=== PATIENT | male | born 1960 | race African-American/Black ===

== ENCOUNTER → 2016-05-08 | Outpatient (CLI) | payer OTHER ==
--- NOTE | 2016-05-16 10:53 | P.ARTDOP ---
Arterial Doppler LOWER EXTREMITY ARTERIAL DOPPLER: DATE OF SERVICE: 05/08/2016 Reason for study: Left leg pain. Doppler waveforms: Multiphasic bilaterally throughout. Pulse volume recording: []. Pressure gradients: Only distally and mainly on the left. Ankle-brachial indices: Greater than 1 bilaterally. Toe pressures: 80 on the right, 51 on the left Impression: Study is normal proximally. Very mild decreased toe pressure on the right and more moderate on the left. Possible distal disease, however, more likely vasospastic phenomenon..
== END | disposition home or self-care (01) ==
LOC: RADUSWWP 11:06
PROVIDERS: ATTEND Family Medicine
DX: M79.605 Pain in left leg (principal)
CPT/HCPCS: 93923

== ENCOUNTER → 2016-05-11 | Outpatient (CLI) | payer OTHER ==
--- NOTE | 2016-05-11 12:22 | US ---
EXAMINATION TYPE: US venous doppler duplex LE LT DATE OF EXAM: 05/11/2016 12:11 PM COMPARISON: NONE CLINICAL HISTORY: left leg pain x months. SIDE PERFORMED: left VESSELS IMAGED: External Iliac Vein (EIV) Common Femoral Vein Deep Femoral Vein Greater Saphenous Vein * Femoral Vein Popliteal Vein Small Saphenous Vein * Proximal Calf Veins (* superficial vessels) Spontaneous flow and normal compressibility noted. IMPRESSION: 1. No evidence of DVT
== END | disposition home or self-care (01) ==
LOC: RADUSWWP 11:38
PROVIDERS: ATTEND Family Medicine
DX: M79.605 Pain in left leg (principal)

== ENCOUNTER → 2017-11-02 | Outpatient (CLI) | payer BC, OTHER ==
--- NOTE | 2017-11-02 16:52 | MR ---
Right wrist MRI HISTORY: Decreased range of motion, pain and swelling Multiplanar multisequence imaging through the right wrist No comparisons There is motion on the exam. There are scattered geodes within the carpal bones including the lunate, scaphoid, capitate and triqu etrum. Some reactive marrow signal changes are suspected within the proximal carpal row greatest at t he triquetrum and lunate. 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 There may be some erosive change at the medial aspect of the tri quetrum. [place] fibrocartilage is thought to be intact. Lunotriquetral ligament thought to be intac t. Flexor and extensor tendons and thought to be intact. 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
== END | disposition home or self-care (01) ==
LOC: RADMRIMAIN 09:28
PROVIDERS: ATTEND Nurse Practitioner Family
DX: M19.031 Primary osteoarthritis, right wrist (principal)

== ENCOUNTER 2017-11-12 10:09 | Emergency (ER) | payer BC, OTHER ==
[2017-11-12 10:14] VITALS: BP 122/77; PULSE 70; RESP 20; TEMP 97.9
--- NOTE | 2017-11-12 10:54 | ED ---
Upper Extremity HPI - General Chief Complaint: Extremity Injury, Upper Stated Complaint: Righ Wrist Pain Time Seen by Provider: 11/12/17 10:16 Source: patient Mode of arrival: ambulatory Limitations: no limitations - History of Present Illness Initial Comments: This is a 57-year-old male with past medical history of previous right wrist injury that occurred Sep 11 2017, pt presents today complaining of wrist pain that has been unchanged since the injury and he cant take the chronic pain. Pt received the injury while at work pushing a heavy object called a bend. He has seen his PCP, Dr Butcher for the injury who has been managing care. MRI was ordered by [facility] revealing arthropathy changes and scapholunate dissociation. Today upon presentation pt complains of right wrist pain isolated to the carpals he states the pain is a 9 out of 10 without radiation in addition he has X been experiencing tingling in the right hand since the injury september, symptoms unchanged today. Patient states that [facility] by his primary care provider, and states that he was unable to get an appointment due to issues with Workmen's Comp. He presents today to see if he revealed seen by orthopedics at Hospital. Pt denies loss of sensation, numbness of extremity, coolness of extremity or new injury, rashes or edema of the carpal joints/skin, or any new symptoms associated with the right wrist. Patient denies any recent fever, chills, shortness of breath, chest pain, back pain, abdominal pain, nausea or vomiting, numbness or tingling , dysuria or hematuria, constipation or diarrhea, headaches or visual changes, or any other complaints. - Related Data Home Medications Medication Instructions Recorded Confirmed Acetaminophen Tab [Tylenol Tab] 1,000 mg PO Q6HR 11/12/17 11/12/17 Atorvastatin Calcium [Lipitor] 10 mg PO DAILY 11/12/17 11/12/17 Ergocalciferol (Vitamin D2) 50,000 unit PO Q7D 11/12/17 11/12/17 [Vitamin D2] FLUoxetine HCL [PROzac] 20 mg PO DAILY 11/12/17 11/12/17 Ferrous Sulfate [Feosol] 325 mg PO BID 11/12/17 11/12/17 Gabapentin [Neurontin] 100 mg PO TID PRN 11/12/17 11/12/17 Gabapentin [Neurontin] 300 mg PO TID 11/12/17 11/12/17 Hydrocortisone Cream 1 applic TOPICAL DAILY PRN 11/12/17 11/12/17 [Hydrocortisone 2.5% Cream] Meloxicam [Mobic] 7.5 mg PO DAILY 11/12/17 11/12/17 hydrOXYzine HCL 25 mg PO HS PRN 11/12/17 11/12/17 metFORMIN HCL [Glucophage] 500 mg PO DAILY 11/12/17 11/12/17 Allergies Allergy/AdvReac Type Severity Reaction Status Date / Time No Known Allergies Allergy Verified 11/12/17 10:18 Review of Systems ROS Statement: Those systems with pertinent positive or pertinent negative responses have been documented in the HPI. ROS Other: All systems not noted in ROS Statement are negative. Constitutional: Denies: fever, chills Eyes: Denies: eye pain ENT: Denies: throat pain Respiratory: Denies: cough, dyspnea Cardiovascular: Denies: chest pain, palpitations Gastrointestinal: Denies: abdominal pain, nausea, vomiting, diarrhea, constipation Genitourinary: Denies: urgency, dysuria, frequency Musculoskeletal: Reports: as per HPI, arthralgia. Denies: joint swelling Neurological: Reports: as per HPI. Denies: headache, weakness, numbness, paresthesias, abnormal gait Past Medical History Past Medical History: Diabetes Mellitus Additional Past Medical History / Comment(s): heart murmur History of Any Multi-Drug Resistant Organisms: None Reported Past Surgical History: No Surgical Hx Reported Past Psychological History: Bipolar, Depression Smoking Status: Current every day smoker Past Alcohol Use History: None Reported Past Drug Use History: None Reported General Exam - General Exam Comments Initial Comments: General: The patient is awake and alert, in no distress, and does not appear acutely ill. Eye: Pupils are equal, round and reactive to light, extra-ocular movements are intact. No nystagmus. There is normal conjunctiva bilaterally. No signs of icterus. Ears, nose, mouth and throat: There are moist mucous membranes and no oral lesions. Neck: The neck is supple, there is no tenderness or JVD. Cardiovascular: There is a regular rate and rhythm. No murmur, rub or gallop is appreciated. Respiratory: Lungs are clear to auscultation, respirations are non-labored, breath sounds are equal. No wheezes, stridor, rales, or rhonchi. Musculoskeletal: Examination of right wrist reveals no edema, erythema, lesions , masses or gross deformities. Pain to palpation of the right wrist both on the ventral and dorsal aspects over the carpal bones. No tenderness to palpation over the metacarpals or phalanges of the hands b/l. Pt is able to range the right wrist pain. Median ulnar and radial nerves are intact as patient is able to make the okay, finger cross and stop sign with the right hand . The station intact of right hand or equal comparison to the left . +2 radial pulses bilaterally . Less than 2 second capillary refill of the right hand Normal ROM , no tenderness left upper extremity. Strength 5/5 of the wrist bilaterally and no evidence of wristdrop. Neurological: A&O x 3. CN II-XII intact, There are no obvious motor or sensory deficits. Coordination appears grossly intact. Speech is normal. Skin: Skin is warm and dry and no rashes or lesions are noted. Psychiatric: Cooperative, appropriate mood & affect, normal judgment. Limitations: no limitations Course Vital Signs 11/12/17 10:12 Temperature 97.9 F Pulse Rate 70 Respiratory 20 Rate Blood Pressure 122/77 O2 Sat by Pulse 99 Oximetry Medical Decision Making - Medical Decision Making This is a 57-year-old male with past medical history of previous right wrist injury that occurred Sep 11 2017, pt presents today complaining of wrist pain that has been unchanged since the injury and he cant take the chronic pain. Pt received the injury while at work pushing a heavy object called a bend. He has seen his PCP, Dr Butcher for the injury who has been managing care. MRI was ordered by [facility] revealing arthropathy changes and scapholunate dissociation. Today upon presentation pt complains of right wrist pain isolated to the carpals he states the pain is a 9 out of 10 without radiation in addition he has X been experiencing tingling in the right hand since the injury september, symptoms unchanged today. Patient states that he was [facility] by his primary care provider, and states that he was unable to get an appointment due to issues with Workmen's Comp. He presents today to see if he revealed seen by orthopedics at Hospital. Pt denies loss of sensation, numbness of extremity, coolness of extremity or new injury, rashes or edema of the carpal joints/skin, or any new symptoms associated with the right wrist. Examination of right wrist reveals no edema, erythema, lesions, masses or gross deformities. Pain to palpation of the right wrist both on the ventral and dorsal aspects over the carpal bones. No tenderness to palpation over the metacarpals or phalanges of the hands b/l. Pt is able to range the right wrist pain. Median ulnar and radial nerves are intact as patient is able to make the okay, finger cross and stop sign with the right hand. The station intact of right hand or equal comparison to the left . +2 radial pulses bilaterally . Less than 2 second capillary refill of the right hand. Case was discussed with Dr. Mata at this time we feel there are no new, or acute changes. THe MRI results were reviewed by myself. We discussed with patient that we will [facility] however, he may need one through [facility] or primary care provider. Pt was told he may return to the emergency department if his experiences change in pain, or new symptoms. Pt was offered toradol for pain relief today, he stated that he is used to it and it and just wants further evaulation by orthopedics. Pt agreed with the plan discussed and will wear wrist brace he has been using since September. Pt was discharged in stable condition. Disposition Clinical Impression: Chronic pain of right wrist Disposition: HOME SELF-CARE Condition: Good Instructions: Wrist Injury (ED) Additional Instructions: Please follow-up with orthopedics in the next 2 days for further evaluation and treatment. Please return to emergency room if the symptoms increase or worsen or for any other concerns. Is patient prescribed a controlled substance at d/c from ED?: No Referrals: Cherie Coyne MD [Primary Care Provider] - 1-2 days Naun Everett DO [Doctor of Osteopathic Medicine] - 1-2 days Time of Disposition: 11:12
== END 2017-11-12 11:17 | disposition home or self-care (01) ==
LOC: EC 10:09
DX: G89.29 Other chronic pain (principal); M25.531 Pain in right wrist; E11.9 Type 2 diabetes mellitus without complications; F31.9 Bipolar disorder, unspecified; F17.200 Nicotine dependence, unspecified, uncomplicated; Z79.1 Long term (current) use of non-steroidal anti-inflammatories (NSAID); Z79.84 Long term (current) use of oral hypoglycemic drugs; Z79.899 Other long term (current) drug therapy
CPT/HCPCS: 99283

== ENCOUNTER 2019-05-13 11:00 | Emergency (ER) | payer BC, OTHER ==
[2019-05-13 11:04] VITALS: BP 123/86; PULSE 83; RESP 19; TEMP 97.9
[2019-05-13] MEDS ORDERED: HYDROcodone/APAP 7.5-325MG 1 EACH TAB PO ONE (11:56)
[2019-05-13] MEDS ORDERED: ACET/COD 300 MG/30 MG STARTER PACK 6 TAB BTL PO STA (11:56)
--- NOTE | 2019-05-13 11:57 | ED ---
Back Pain HPI - General Chief Complaint: Back Pain/Injury Stated Complaint: back pain Time Seen by Provider: 05/13/19 11:16 Source: patient, RN notes reviewed Limitations: no limitations - History of Present Illness Initial Comments: 58-year-old male presents emergency Department chief complaint low back pain. 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 Patient has chronic back issues. Patient denies any bowel bladder incontinence or retention or saddle anesthesias. No abdominal pain. Patient states pain is worse with movement better at rest. He has not taken anything recently for the pain. He does have chronic pain is been chronic pain medications. - Related Data Home Medications Medication Instructions Recorded Confirmed Acetaminophen Tab [Tylenol Tab] 1,000 mg PO Q6HR 11/12/17 11/12/17 Atorvastatin Calcium [Lipitor] 10 mg PO DAILY 11/12/17 11/12/17 Ergocalciferol (Vitamin D2) 50,000 unit PO Q7D 11/12/17 11/12/17 [Vitamin D2] FLUoxetine HCL [PROzac] 20 mg PO DAILY 11/12/17 11/12/17 Ferrous Sulfate [Feosol] 325 mg PO BID 11/12/17 11/12/17 Gabapentin [Neurontin] 100 mg PO TID PRN 11/12/17 11/12/17 Gabapentin [Neurontin] 300 mg PO TID 11/12/17 11/12/17 Hydrocortisone Cream 1 applic TOPICAL DAILY PRN 11/12/17 11/12/17 [Hydrocortisone 2.5% Cream] Meloxicam [Mobic] 7.5 mg PO DAILY 11/12/17 11/12/17 hydrOXYzine HCL 25 mg PO HS PRN 11/12/17 11/12/17 metFORMIN HCL [Glucophage] 500 mg PO DAILY 11/12/17 11/12/17 Previous Rx's Medication Instructions Recorded Cyclobenzaprine [Flexeril] 5 mg PO TID PRN #15 tablet 05/13/19 Ibuprofen [Motrin] 600 mg PO Q8HR PRN #30 tab 05/13/19 Allergies Allergy/AdvReac Type Severity Reaction Status Date / Time No Known Allergies Allergy Verified 11/12/17 10:18 Review of Systems ROS Statement: Those systems with pertinent positive or pertinent negative responses have been documented in the HPI. ROS Other: All systems not noted in ROS Statement are negative. Past Medical History Past Medical History: Diabetes Mellitus Additional Past Medical History / Comment(s): heart murmur History of Any Multi-Drug Resistant Organisms: None Reported Past Surgical History: No Surgical Hx Reported Past Psychological History: Bipolar, Depression Smoking Status: Current every day smoker Past Alcohol Use History: None Reported Past Drug Use History: None Reported General Exam Limitations: no limitations General appearance: alert, in no apparent distress Head exam: Present: atraumatic, normocephalic, normal inspection Eye exam: Present: normal appearance, PERRL, EOMI. Absent: scleral icterus, conjunctival injection, periorbital swelling Neck exam: Present: normal inspection, full ROM. Absent: tenderness, meningismus, lymphadenopathy Respiratory exam: Present: normal lung sounds bilaterally. Absent: respiratory distress, wheezes, rales, rhonchi, stridor Cardiovascular Exam: Present: regular rate, normal rhythm, normal heart sounds. Absent: systolic murmur, diastolic murmur, rubs, gallop, clicks GI/Abdominal exam: Present: soft, normal bowel sounds. Absent: distended, tenderness, guarding, rebound, rigid Extremities exam: Present: other (Lower extremity is neurovascularly intact full strength equal color equal warmth) Back exam: Present: full ROM, tenderness, muscle spasm, paraspinal tenderness. Absent: CVA tenderness (R), vertebral tenderness Neurological exam: Present: reflexes normal. Absent: motor sensory deficit Course Vital Signs 05/13/19 11:02 Temperature 97.9 F Pulse Rate 83 Respiratory 19 Rate Blood Pressure 123/86 O2 Sat by Pulse 99 Oximetry Medical Decision Making - Medical Decision Making Patient has acute on chronic back pain. He has no red flag symptoms. Patient is neurovascularly intact will be discharged return parameters were discussed. Disposition Clinical Impression: Strain of lumbar region Disposition: HOME SELF-CARE Condition: Stable Instructions (If sedation given, give patient instructions): Acute Low Back Pain (ED) Additional Instructions: Please return to the Emergency Department if symptoms worsen or any other concerns. Prescriptions: Cyclobenzaprine [Flexeril] 5 mg PO TID PRN #15 tablet PRN Reason: Muscle Spasm Ibuprofen [Motrin] 600 mg PO Q8HR PRN #30 tab PRN Reason: Pain Is patient prescribed a controlled substance at d/c from ED?: No Referrals: Alberto Leon MD [Primary Care Provider] - 1-2 days Time of Disposition: 11:57
== END 2019-05-13 12:05 | disposition home or self-care (01) ==
LOC: EC 11:00
DX: S39.012A Strain of muscle, fascia and tendon of lower back, initial encounter (principal); G89.29 Other chronic pain; E11.9 Type 2 diabetes mellitus without complications; F31.9 Bipolar disorder, unspecified; F17.200 Nicotine dependence, unspecified, uncomplicated; Z79.1 Long term (current) use of non-steroidal anti-inflammatories (NSAID); Z79.84 Long term (current) use of oral hypoglycemic drugs; Z79.891 Long term (current) use of opiate analgesic; Z79.899 Other long term (current) drug therapy; X50.9XXA Other and unspecified overexertion or strenuous movements or postures, initial encounter; Y93.89 Activity, other specified
CPT/HCPCS: 99283

== ENCOUNTER 2019-06-05 07:08 | Emergency (ER) | payer BC, OTHER ==
[2019-06-05 07:15] VITALS: TEMP 99.7
[2019-06-05] MEDS ORDERED: IBUPROFEN 600 MG TAB PO STA (07:26)
[2019-06-05] MEDS ORDERED: ACETAMINOPHEN TAB 325 MG TAB PO STA (07:26)
--- NOTE | 2019-06-05 07:42 | ED ---
URI HPI - General Chief Complaint: Upper Respiratory Infection Stated Complaint: bodyaches/congestion Time Seen by Provider: 06/05/19 07:17 Source: patient, RN notes reviewed Mode of arrival: ambulatory Limitations: no limitations - History of Present Illness Initial Comments: 58-year-old male presents emergency Department chief complaint of fever cough congestion body aches. Patient states started 2 days ago. Patient states it is very achy head to toe. Patient states he has not coughed he has a large amount nasal congestion denies sore throat, neck pain, headache or neck pain. Patient states she's had multiple sick contacts. He has NO KNOWN DRUG ALLERGIES. Denies any GI symptoms including nausea vomiting diarrhea constipation. He has not taken any recent Tylenol or Motrin. - Related Data Home Medications Medication Instructions Recorded Confirmed Acetaminophen Tab [Tylenol Tab] 1,000 mg PO Q6HR 11/12/17 11/12/17 Atorvastatin Calcium [Lipitor] 10 mg PO DAILY 11/12/17 11/12/17 Ergocalciferol (Vitamin D2) 50,000 unit PO Q7D 11/12/17 11/12/17 [Vitamin D2] FLUoxetine HCL [PROzac] 20 mg PO DAILY 11/12/17 11/12/17 Ferrous Sulfate [Feosol] 325 mg PO BID 11/12/17 11/12/17 Gabapentin [Neurontin] 100 mg PO TID PRN 11/12/17 11/12/17 Gabapentin [Neurontin] 300 mg PO TID 11/12/17 11/12/17 Hydrocortisone Cream 1 applic TOPICAL DAILY PRN 11/12/17 11/12/17 [Hydrocortisone 2.5% Cream] Meloxicam [Mobic] 7.5 mg PO DAILY 11/12/17 11/12/17 hydrOXYzine HCL 25 mg PO HS PRN 11/12/17 11/12/17 metFORMIN HCL [Glucophage] 500 mg PO DAILY 11/12/17 11/12/17 Previous Rx's Medication Instructions Recorded Cyclobenzaprine [Flexeril] 5 mg PO TID PRN #15 tablet 05/13/19 Ibuprofen [Motrin] 600 mg PO Q8HR PRN #30 tab 05/13/19 Azithromycin [Zithromax Z-pack] 0 mg PO DIRECTED #1 pack 06/05/19 Allergies Allergy/AdvReac Type Severity Reaction Status Date / Time No Known Allergies Allergy Verified 11/12/17 10:18 Review of Systems ROS Statement: Those systems with pertinent positive or pertinent negative responses have been documented in the HPI. ROS Other: All systems not noted in ROS Statement are negative. Past Medical History Past Medical History: Diabetes Mellitus Additional Past Medical History / Comment(s): heart murmur History of Any Multi-Drug Resistant Organisms: None Reported Past Surgical History: No Surgical Hx Reported Past Psychological History: Anxiety, Bipolar, Depression Smoking Status: Current every day smoker Past Alcohol Use History: None Reported Past Drug Use History: None Reported General Exam Limitations: no limitations General appearance: alert, in no apparent distress Head exam: Present: atraumatic, normocephalic, normal inspection Eye exam: Present: normal appearance, PERRL, EOMI. Absent: scleral icterus, conjunctival injection, periorbital swelling ENT exam: Present: normal exam, normal oropharynx, mucous membranes moist, TM's normal bilaterally Neck exam: Present: normal inspection, full ROM. Absent: tenderness, meningismus, lymphadenopathy Respiratory exam: Present: normal lung sounds bilaterally. Absent: respiratory distress, wheezes, rales, rhonchi, stridor Cardiovascular Exam: Present: normal rhythm, tachycardia, normal heart sounds. Absent: systolic murmur, diastolic murmur, rubs, gallop, clicks Course Vital Signs 06/05/19 06/05/19 07:12 07:51 Temperature 99.7 F H Pulse Rate 118 H Respiratory 20 16 Rate Blood Pressure 90/60 O2 Sat by Pulse 98 Oximetry Medical Decision Making - Medical Decision Making 58-year-old male present emergency department for cough congestion fever bodyaches. Patient's symptoms are consistent with influenza though less than test is negative. On x-ray question possible early developing pneumonia. Patient will be given shot of Rocephin, discharged on azithromycin. Patient otherwise stable. Patient blood pressure is a lower side though patient reports is normal for him. Patient states that he donates plasma on a regular basis and states that this is usual for him. I did recommend lab work, IV fluids to improve his blood pressure. Patient refuses. I did recommend Rocephin IM patient is hesitant though agrees at this time. - Lab Data Lab Results 06/05/19 Range/Units 07:45 Influenza Type A RNA Not Detected (Not Detectd) Influenza Type B (PCR) Not Detected (Not Detectd) Disposition Clinical Impression: Pneumonia Disposition: HOME SELF-CARE Condition: Stable Instructions (If sedation given, give patient instructions): Pneumonia (ED) Additional Instructions: Please follow up with primary care physician to have a recheck. Please return to the Emergency Department if symptoms worsen or any other concerns. Prescriptions: Azithromycin [Zithromax Z-pack] 0 mg PO DIRECTED #1 pack Is patient prescribed a controlled substance at d/c from ED?: No Referrals: Alberto Leon MD [Primary Care Provider] - 1-2 days Time of Disposition: 08:25
--- NOTE | 2019-06-05 07:49 | XR ---
EXAMINATION TYPE: XR chest 2V DATE OF EXAM: 06/05/2019 COMPARISON: NONE HISTORY: Cough and weakness TECHNIQUE: Frontal and lateral views of the chest are obtained. FINDINGS: Asymmetric opacity is seen at the right lung base. Pulmonary hyperinflation of underlying COPD. Biapical pleural parenchymal scarring. Elongation of the cardiomediastinal silhouette that is n ot enlarged. Osseous structures are grossly intact. IMPRESSION: Right basilar airspace disease that may represent early developing pneumonia. Follow-up to resolution is recommended in this patient with underlying COPD.
[2019-06-05 07:53] VITALS: RESP 16
[2019-06-05] MEDS ORDERED: cefTRIAXone 1,000 MG VIAL (IM USE) IM STA (08:24)
[2019-06-05 08:42] VITALS: BP 101/63; PULSE 98
== END 2019-06-05 08:30 | disposition home or self-care (01) ==
LOC: EC 07:08
DX: J18.9 Pneumonia, unspecified organism (principal); R00.0 Tachycardia, unspecified; E11.9 Type 2 diabetes mellitus without complications; F31.9 Bipolar disorder, unspecified; F41.9 Anxiety disorder, unspecified; F17.200 Nicotine dependence, unspecified, uncomplicated; Z79.1 Long term (current) use of non-steroidal anti-inflammatories (NSAID); Z79.84 Long term (current) use of oral hypoglycemic drugs; Z79.891 Long term (current) use of opiate analgesic; Z79.899 Other long term (current) drug therapy
CPT/HCPCS: 71046; 87502; 96372; 99283

== ENCOUNTER 2019-12-17 10:10 | Emergency (ER) | payer BC, OTHER ==
[2019-12-17 10:19] VITALS: RESP 18
--- NOTE | 2019-12-17 10:41 | ED ---
Extremity Problem HPI - General Chief complaint: Extremity Problem,Nontraumatic Stated complaint: Bilateral Feet Pain Time Seen by Provider: 12/17/19 10:27 Source: patient Mode of arrival: ambulatory Limitations: no limitations - History of Present Illness Initial comments: Patient is a 59-year-old male with history of diabetes presenting to emergency [facility] with a chief complaint of feet pain. Patient reports pain has been ongoing for many years. States she sees a systems security consultant who typically removes his calluses but now he has developed new calluses on the plantar aspect of bilateral feet and is not able to walk due to the pain. Patient states he has an appointment with a systems security consultant on Saturday but cannot wait that long. He also reports itchiness in both of his feet along with intermittent burning-like sensation. States there was no trauma to both feet. No erythema or swelling. - Related Data Home Medications Medication Instructions Recorded Confirmed Acetaminophen Tab [Tylenol] 1,000 mg PO Q6HR 11/12/17 06/06/19 Atorvastatin Calcium [Lipitor] 10 mg PO DAILY 11/12/17 06/06/19 Ergocalciferol (Vitamin D2) 50,000 unit PO Q7D 11/12/17 06/06/19 [Vitamin D2] Ferrous Sulfate [Iron (65 MG 325 mg PO BID 11/12/17 06/06/19 Elemental)] Ammonium Lactate Lotion 1 applic TOPICAL BID 06/06/19 06/06/19 [Lac-Hydrin 12% Lotion] FLUoxetine HCL 40 mg PO DAILY 06/06/19 06/06/19 Mirtazapine [Remeron] 15 mg PO HS 06/06/19 06/06/19 Previous Rx's Medication Instructions Recorded Cyclobenzaprine [Flexeril] 5 mg PO TID PRN #15 tablet 05/13/19 Ensure Complete 1 can PO TID BETWEEN MEALS #18 can 06/09/19 Gabapentin [Neurontin] 300 mg PO TID cap 06/09/19 Ipratropium-Albuterol Nebulize 3 ml INHALATION RT-QID #120 ml 06/09/19 [Duoneb 0.5 mg-3 mg/3 ml Soln] Levofloxacin [Levaquin] 500 mg PO Q24H #5 tab 06/09/19 Nicotine 14Mg/24Hr Patch [Habitrol] 1 patch TRANSDERM DAILY #30 patch 06/09/19 Pantoprazole [Protonix] 40 mg PO DAILY #30 tablet. 06/09/19 predniSONE 0 mg PO DIRECTED #30 tab 06/09/19 Allergies Allergy/AdvReac Type Severity Reaction Status Date / Time No Known Allergies Allergy Verified 12/17/19 10:19 Review of Systems ROS Statement: Those systems with pertinent positive or pertinent negative responses have been documented in the HPI. ROS Other: All systems not noted in ROS Statement are negative. Past Medical History Past Medical History: COPD, Diabetes Mellitus, Hyperlipidemia, Mitral Valve Prolapse (MVP), Osteoarthritis (OA) Additional Past Medical History / Comment(s): heart murmur History of Any Multi-Drug Resistant Organisms: None Reported Past Surgical History: Orthopedic Surgery Additional Past Surgical History / Comment(s): l leg Past Psychological History: Anxiety, Bipolar, Depression Smoking Status: Current every day smoker Past Alcohol Use History: Daily Past Drug Use History: None Reported - Past Family History Father Family Medical History: No Reported History (Father at age 91 from old age.) Mother Family Medical History: Unable to Obtain (Mother he could not recall what reason.) Brother(s) Family Medical History: No Reported History (Patient had 5 brothers one of them from motorcycle accident and one was killed in [place].) Sister(s) Family Medical History: No Reported History (Patient has one sister no major medical problems.) General Exam Limitations: no limitations General appearance: alert, in no apparent distress Head exam: Present: atraumatic, normocephalic, normal inspection Eye exam: Present: normal appearance, PERRL, EOMI Pupils: Present: normal accommodation ENT exam: Present: normal exam, normal oropharynx, mucous membranes moist Neck exam: Present: normal inspection Respiratory exam: Present: normal lung sounds bilaterally. Absent: respiratory distress, wheezes Cardiovascular Exam: Present: regular rate, normal rhythm, normal heart sounds Extremities exam: Present: full ROM, tenderness (Tenderness when pressed on the calluses.), normal capillary refill, other (+2 ulnar and radial pulses bilaterally. +2 dorsalis pedis and posterior tibialis bilaterally.). Absent: normal inspection (Calluses formed near the MTP joint of bilateral feet. No signs of acute trauma infection, diabetic ulcers.) Back exam: Present: normal inspection, full ROM Neurological exam: Present: alert, oriented X3 Psychiatric exam: Present: normal affect, normal mood Skin exam: Present: warm, dry, intact, normal color Course Vital Signs 12/17/19 12/17/19 10:12 11:27 Temperature 98 F 97.8 F Pulse Rate 79 82 Respiratory 18 18 Rate Blood Pressure 178/72 164/69 O2 Sat by Pulse 100 100 Oximetry Medical Decision Making - Medical Decision Making Patient is a 59-year-old male presenting to emergency Department with chief complaint of bilateral feet pain on exam patient has calluses on both feet which I was able to remove with a surgical neck. Patient tolerated procedure well. He was able to apply weight on both feet with improvement in his pain. Patient is also diabetic which I suspect is giving him the burning-like sensation that is intermittent. All of his symptoms have been ongoing over the past several years. He is to follow-up with a systems security consultant on Saturday. Patient advised to wear socks and soak his feet in Epsom salts. Strict return parameters were thoroughly discussed the patient was understanding and agreeable. Case discussed with physician. Disposition Clinical Impression: Callus of foot, Bilateral foot pain Disposition: HOME SELF-CARE Condition: Stable Instructions (If sedation given, give patient instructions): Diabetic Peripheral Neuropathy (ED) Additional Instructions: Follow-up with her systems security consultant. Return to emergency department if symptoms worsen. Is patient prescribed a controlled substance at d/c from ED?: No Referrals: None,Stated [Primary Care Provider] - 1-2 days Time of Disposition: 11:18
[2019-12-17 11:28] VITALS: BP 164/69; PULSE 82; TEMP 97.8
== END 2019-12-17 11:27 | disposition home or self-care (01) ==
LOC: EC 10:10
DX: M25.775 Osteophyte, left foot (principal); M25.774 Osteophyte, right foot; F17.200 Nicotine dependence, unspecified, uncomplicated; F41.9 Anxiety disorder, unspecified; F31.9 Bipolar disorder, unspecified; E78.5 Hyperlipidemia, unspecified; Z79.899 Other long term (current) drug therapy
CPT/HCPCS: 99283

== ENCOUNTER → 2020-01-15 | Outpatient (CLI) | payer BC, OTHER | END | disposition home or self-care (01) | LOC: LABWHC1 12:07 | PROVIDERS: ATTEND Family Medicine | DX: Z03.818 Encounter for observation for suspected exposure to other biological agents ruled out (principal) | CPT/HCPCS: U0003; C9803 ==

== ENCOUNTER 2020-03-04 17:33 | Emergency (ER) | payer BC, OTHER ==
--- NOTE | 2020-03-04 19:28 | ED ---
Psych HPI - General Chief Complaint: Psychiatric Symptoms Stated Complaint: evaluation Time Seen by Provider: 03/04/20 17:45 Source: police Mode of arrival: ambulatory - History of Present Illness Initial Comments: Patient 51-year-old male presenting to the emergency department for psychiatric evaluation. Patient states he believes someone was in his apartment. He has called the police department multiple times. This time, the Police Department brought the patient to the ED to be evaluated. Patient states that "the egg worker think I'm crazy". Patient is denying any homicidal, suicidal thoughts or ideations. He does not have any other complaints. - Related Data Home Medications Medication Instructions Recorded Confirmed Acetaminophen Tab [Tylenol] 1,000 mg PO Q6HR 11/12/17 06/06/19 Atorvastatin Calcium [Lipitor] 10 mg PO DAILY 11/12/17 06/06/19 Ergocalciferol (Vitamin D2) 50,000 unit PO Q7D 11/12/17 06/06/19 [Vitamin D2] Ferrous Sulfate [Iron (65 MG 325 mg PO BID 11/12/17 06/06/19 Elemental)] Ammonium Lactate Lotion 1 applic TOPICAL BID 06/06/19 06/06/19 [Lac-Hydrin 12% Lotion] FLUoxetine HCL 40 mg PO DAILY 06/06/19 06/06/19 Mirtazapine [Remeron] 15 mg PO HS 06/06/19 06/06/19 Previous Rx's Medication Instructions Recorded Cyclobenzaprine [Flexeril] 5 mg PO TID PRN #15 tablet 05/13/19 Ensure Complete 1 can PO TID BETWEEN MEALS #18 can 06/09/19 Gabapentin [Neurontin] 300 mg PO TID cap 06/09/19 Ipratropium-Albuterol Nebulize 3 ml INHALATION RT-QID #120 ml 06/09/19 [Duoneb 0.5 mg-3 mg/3 ml Soln] Levofloxacin [Levaquin] 500 mg PO Q24H #5 tab 06/09/19 Nicotine 14Mg/24Hr Patch [Habitrol] 1 patch TRANSDERM DAILY #30 patch 06/09/19 Pantoprazole [Protonix] 40 mg PO DAILY #30 tablet. 06/09/19 predniSONE 0 mg PO DIRECTED #30 tab 06/09/19 Allergies Allergy/AdvReac Type Severity Reaction Status Date / Time No Known Allergies Allergy Verified 03/04/20 17:37 Review of Systems ROS Statement: Those systems with pertinent positive or pertinent negative responses have been documented in the HPI. ROS Other: All systems not noted in ROS Statement are negative. Past Medical History Past Medical History: COPD, Diabetes Mellitus, Hyperlipidemia, Mitral Valve Prolapse (MVP), Osteoarthritis (OA) Additional Past Medical History / Comment(s): heart murmur History of Any Multi-Drug Resistant Organisms: None Reported Past Surgical History: Orthopedic Surgery Additional Past Surgical History / Comment(s): l leg Past Psychological History: Anxiety, Bipolar, Depression Smoking Status: Current every day smoker Past Alcohol Use History: Daily Past Drug Use History: None Reported - Past Family History Father Family Medical History: No Reported History (Father at age 91 from old age.) Mother Family Medical History: Unable to Obtain (Mother he could not recall what reason.) Brother(s) Family Medical History: No Reported History (Patient had 5 brothers one of them from motorcycle accident and one was killed in [place].) Sister(s) Family Medical History: No Reported History (Patient has one sister no major medical problems.) General Exam Limitations: no limitations General appearance: alert, in no apparent distress Head exam: Present: atraumatic, normocephalic, normal inspection Eye exam: Present: normal appearance, PERRL, EOMI Pupils: Present: normal accommodation ENT exam: Present: normal exam, normal oropharynx, mucous membranes moist, TM's normal bilaterally, normal external ear exam Neck exam: Present: normal inspection, full ROM. Absent: tenderness, meningismus Respiratory exam: Present: normal lung sounds bilaterally. Absent: respiratory distress, wheezes, rales Cardiovascular Exam: Present: regular rate, normal rhythm, normal heart sounds. Absent: bradycardia, tachycardia, irregular rhythm GI/Abdominal exam: Present: soft. Absent: distended, tenderness, guarding Extremities exam: Present: normal inspection, full ROM, normal capillary refill. Absent: tenderness Back exam: Present: normal inspection, full ROM. Absent: tenderness, CVA tenderness (R), CVA tenderness (L) Neurological exam: Present: alert, oriented X3 Psychiatric exam: Present: normal affect, normal mood. Absent: anxious, flat affect, suicidal ideation Skin exam: Present: warm, dry, intact, normal color Course Vital Signs 10/30/20 10/30/20 17:35 19:41 Temperature 97.7 F 98.2 F Pulse Rate 90 86 Respiratory 20 18 Rate Blood Pressure 146/105 160/78 O2 Sat by Pulse 99 98 Oximetry Medical Decision Making - Medical Decision Making patient 59-year-old male presenting to the emergency department for psychiatric evaluation. Physical examination is unremarkable. Patient is denying any homicidal, suicidal thoughts or ideations. Patient was brought to the ED by police. Patient states that he essentially wants to prove to with THAT he is "not crazy". EPS evaluated the patient and he will be discharged with a safety plan. He was advised to follow-up with [facility]. Strict return parameters discussed with patient is a 71 agreeable. Case discussed physician. Disposition Clinical Impression: Adjustment reaction of adolescence Disposition: HOME SELF-CARE Condition: Stable Instructions (If sedation given, give patient instructions): Depression (ED) Additional Instructions: Follow-up with [facility]. Return to department if symptoms worsen. Is patient prescribed a controlled substance at d/c from ED?: No Referrals: Elia Casey MD [Primary Care Provider] - 1-2 days Time of Disposition: 19:28
[2020-03-04 19:44] VITALS: BP 160/78; PULSE 86; RESP 18; TEMP 98.2
== END 2020-03-04 19:41 | disposition home or self-care (01) ==
LOC: EC 17:33
DX: F43.22 Adjustment disorder with anxiety (principal); F31.9 Bipolar disorder, unspecified; F17.200 Nicotine dependence, unspecified, uncomplicated; E78.5 Hyperlipidemia, unspecified; Z79.899 Other long term (current) drug therapy
CPT/HCPCS: 99284

== ENCOUNTER → 2020-06-10 | Outpatient (CLI) | payer BC, OTHER ==
--- NOTE | 2020-06-10 10:58 | US ---
EXAMINATION TYPE: US abdomen limited DATE OF EXAM: 06/10/2020 COMPARISON: NONE CLINICAL HISTORY: K40.90 Unilateral inguinal hernia, without obstruc. Patient has a bulge in his LLQ , just superior to the inguinal canal At the area of the patient's palpable lump, LLQ, there appears to be a possible hernia with peristals ing bowel. IMPRESSION: Possible hernia as noted above.
== END | disposition home or self-care (01) ==
LOC: RADUSWWP 10:18
PROVIDERS: ATTEND Family Medicine
DX: K40.90 Unilateral inguinal hernia, without obstruction or gangrene, not specified as recurrent (principal)
CPT/HCPCS: 76705

== ENCOUNTER 2020-06-20 10:10 | Emergency (ER) | payer BC, OTHER ==
[2020-06-20 10:17] VITALS: BP 137/62; PULSE 68; RESP 18; TEMP 97.1
[2020-06-20] MEDS ORDERED: ACET/COD 300 MG/30 MG STARTER PACK 6 TAB BTL PO STA (10:32)
--- NOTE | 2020-06-20 10:32 | ED ---
Abdominal Pain HPI - General Chief Complaint: Abdominal Pain Stated Complaint: hernia Time Seen by Provider: 06/20/20 10:19 Source: patient, RN notes reviewed Mode of arrival: ambulatory Limitations: no limitations - History of Present Illness Initial Comments: This a 59-year-old male presents emergency Department chief complaint of left- sided groin swelling. Patient states that he's had a hernia which she's been diagnosed with states that is intermittent pain. He states the pain usually comes when his general activity has no current symptoms. Patient denies any dysuria, hematuria no difficulty with bowel movements no fevers or chills no other complaints. Patient states he has no appointment this week with surgeon. - Related Data Home Medications Medication Instructions Recorded Confirmed Acetaminophen Tab [Tylenol] 1,000 mg PO Q6HR 11/12/17 06/06/19 Atorvastatin Calcium [Lipitor] 10 mg PO DAILY 11/12/17 06/06/19 Ergocalciferol (Vitamin D2) 50,000 unit PO Q7D 11/12/17 06/06/19 [Vitamin D2] Ferrous Sulfate [Iron (65 MG 325 mg PO BID 11/12/17 06/06/19 Elemental)] Ammonium Lactate Lotion 1 applic TOPICAL BID 06/06/19 06/06/19 [Lac-Hydrin 12% Lotion] FLUoxetine HCL 40 mg PO DAILY 06/06/19 06/06/19 Mirtazapine [Remeron] 15 mg PO HS 06/06/19 06/06/19 Previous Rx's Medication Instructions Recorded Cyclobenzaprine [Flexeril] 5 mg PO TID PRN #15 tablet 05/13/19 Ensure Complete 1 can PO TID BETWEEN MEALS #18 can 06/09/19 Gabapentin [Neurontin] 300 mg PO TID cap 06/09/19 Ipratropium-Albuterol Nebulize 3 ml INHALATION RT-QID #120 ml 06/09/19 [Duoneb 0.5 mg-3 mg/3 ml Soln] Levofloxacin [Levaquin] 500 mg PO Q24H #5 tab 06/09/19 Nicotine 14Mg/24Hr Patch [Habitrol] 1 patch TRANSDERM DAILY #30 patch 06/09/19 Pantoprazole [Protonix] 40 mg PO DAILY #30 tablet. 06/09/19 predniSONE 0 mg PO DIRECTED #30 tab 06/09/19 Allergies Allergy/AdvReac Type Severity Reaction Status Date / Time No Known Allergies Allergy Verified 06/20/20 10:17 Review of Systems ROS Statement: Those systems with pertinent positive or pertinent negative responses have been documented in the HPI. ROS Other: All systems not noted in ROS Statement are negative. Past Medical History Past Medical History: COPD, Diabetes Mellitus, Hyperlipidemia, Mitral Valve Prolapse (MVP), Osteoarthritis (OA) Additional Past Medical History / Comment(s): heart murmur History of Any Multi-Drug Resistant Organisms: None Reported Past Surgical History: Orthopedic Surgery Additional Past Surgical History / Comment(s): l leg Past Psychological History: Anxiety, Bipolar, Depression Smoking Status: Current every day smoker Past Alcohol Use History: Daily Past Drug Use History: None Reported - Past Family History Father Family Medical History: No Reported History (Father at age 91 from old age.) Mother Family Medical History: Unable to Obtain (Mother he could not recall what reason.) Brother(s) Family Medical History: No Reported History (Patient had 5 brothers one of them from motorcycle accident and one was killed in [place].) Sister(s) Family Medical History: No Reported History (Patient has one sister no major medical problems.) General Exam Limitations: no limitations General appearance: alert, in no apparent distress Head exam: Present: atraumatic, normocephalic, normal inspection Neck exam: Present: normal inspection. Absent: tenderness, meningismus, lymphadenopathy Respiratory exam: Present: normal lung sounds bilaterally. Absent: respiratory distress, wheezes, rales, rhonchi, stridor Cardiovascular Exam: Present: regular rate, normal rhythm, normal heart sounds. Absent: systolic murmur, diastolic murmur, rubs, gallop, clicks GI/Abdominal exam: Present: soft, normal bowel sounds, hernia (Small reducible hernia on the left with no tenderness.). Absent: distended, tenderness, guarding, rebound, rigid Neurological exam: Present: alert, oriented X3 Course Vital Signs 06/20/20 10:13 Temperature 97.1 F L Pulse Rate 68 Respiratory 18 Rate Blood Pressure 137/62 O2 Sat by Pulse 100 Oximetry Medical Decision Making - Medical Decision Making Patient has a small reducible inguinal hernia with no tenderness. Patient will be discharged stable condition as he does not have incarcerated or strangulated hernia. He is advised follow-up with surgeon this week and return for any worsening change in symptoms. Patient agrees to plan. Disposition Clinical Impression: Inguinal hernia Disposition: HOME SELF-CARE Condition: Stable Instructions (If sedation given, give patient instructions): Inguinal Hernia (ED) Additional Instructions: Please return to the Emergency Department if symptoms worsen or any other concerns. Is patient prescribed a controlled substance at d/c from ED?: No Referrals: Cherie Coyne MD [Primary Care Provider] - 1-2 days Ramone Cano MD [STAFF PHYSICIAN] - 1-2 days Time of Disposition: 10:32
== END 2020-06-20 10:44 | disposition home or self-care (01) ==
LOC: EC 10:10
DX: K40.90 Unilateral inguinal hernia, without obstruction or gangrene, not specified as recurrent (principal); E78.5 Hyperlipidemia, unspecified; M19.90 Unspecified osteoarthritis, unspecified site; F41.9 Anxiety disorder, unspecified; F31.9 Bipolar disorder, unspecified; F17.200 Nicotine dependence, unspecified, uncomplicated; Z79.899 Other long term (current) drug therapy
CPT/HCPCS: 99284

== ENCOUNTER 2020-07-29 09:51 | Day surgery (SDC) | payer BC, OTHER ==
[2020-07-28 12:47] VITALS: BMI 16.5
[~2020-07-29 09:51] MED LIST: ACETAMINOPHEN TAB 500 MG TAB PO PRN; DEXAMETHASONE SOD PHOSPHATE 4 MG/ML 1 ML VIAL IV ONE; HEPARIN SODIUM,PORCINE 5,000 UNIT/ML 1 ML VIAL SQ PRN; LACTATED RINGERS 1,000 ML IV SCH; MIDAZOLAM 2 MG/2 ML VIAL IV PRN; ONDANSETRON 4 MG/2 ML VIAL IVP ONE; SCOPOLAMINE 1.5MG/72HR PATCH TRANSDERM ONE
[2020-07-29 12:43] LABS: Glucose,Whole Blood 76 mg/dL (75-99)
[2020-07-29] MEDS ORDERED: PROPOFOL 10 MG/ML 20 ML VIAL IV ONE (13:31)
[2020-07-29] MEDS ORDERED: fentaNYL (PF) 50 MCG/ML 2 ML AMP ONE (13:31)
[2020-07-29] MEDS ORDERED: LIDOCAINE 1% INJ 10MG/ML (20 ML MDV) ONE (13:31)
[2020-07-29] MEDS ORDERED: PHENYLEPHRINE-0.9% NACL SYG 1,000 MCG/10 ML SYRINGE ONE (13:31)
[2020-07-29] MEDS ORDERED: SUCCINYLCHOLINE CHLORIDE 100 MG/5 ML SYR IV ONE (13:31)
[2020-07-29] MEDS ORDERED: MIDAZOLAM 2 MG/2 ML VIAL ONE (13:31)
[2020-07-29] MEDS ORDERED: BUPIVACAINE (PF) 0.25% 30 ML VIAL SQ ONE ×2 (14:05→14:11)
--- NOTE | 2020-07-29 14:29 | P.OP ---
Date of Procedure: 07/29/20 Procedure(s) Performed: PREOPERATIVE DIAGNOSIS: Left femoral hernia POSTOPERATIVE DIAGNOSIS: Same PROCEDURE: Left femoral hernia repair with mesh SURGEON: Ej EBL: Minimal ANESTHESIA: General COMPLICATIONS: None OPERATIVE PROCEDURE: Patient was placed in the operating table in the supine position and placed under general anesthesia. An oblique incision was made in the left groin. Dissection down through the subcutaneous tissues took place using electrocautery. The inguinal ligament was visualized. The patient had a palpable mass inferior to the inguinal ligament medially. This was carefully dissected using blunt dissection and cautery. This revealed a small moderate sized femoral hernia. There was a hernia sac present here which was ligated using a 2-0 Nurolon stick tie suture. The hernia was fully dissected and reduced back into the preperitoneal space. Following that a 1 x 4" Prolene mesh was rolled into a plug shape. This measured 2 x 0.8 cm. This was placed into the femoral canal and sutured using interrupted 2-0 Nurolon sutures to the folding edge of the inguinal ligament, lacunar ligament, and the fascia of the pectineus muscle. This effectively closed the femoral space completely without putting pressure on the femoral vein. The area was irrigated with saline. No bleeding was seen. The subcutaneous tissues were reapproximated using a 3-0 Vicryl sutures. The skin was closed using 4-0 Monocryl sutures. Skin glue and sterile dressings were then applied. DISPOSITION: Stable to recovery room
[2020-07-29 14:39] VITALS: TEMP 97
[2020-07-29] MEDS: HYDROmorphone 0.5 MG/0.5 ML SYRINGE IVP PRN ×3 (14:45→15:13)
[2020-07-29] MEDS ORDERED: KETOROLAC 15 MG/ML 1 ML VIAL IVP ONE (14:49)
[2020-07-29] MEDS ORDERED: LACTATED RINGERS 1,000 ML IV ONE ×2 (14:59)
[2020-07-29 15:35] VITALS: BP 133/82; PULSE 50; RESP 18
[2020-07-29] MEDS ORDERED: IBUPROFEN 600 MG TAB PO SCH (16:00)
[2020-07-29] MEDS ORDERED: ACETAMINOPHEN TAB 325 MG TAB PO SCH (19:00)
== END 2020-07-29 16:28 | disposition home or self-care (01) ==
LOC: OR 09:51
PROVIDERS: ATTEND Surgery
DX: K41.90 Unilateral femoral hernia, without obstruction or gangrene, not specified as recurrent (principal); J44.9 Chronic obstructive pulmonary disease, unspecified; E11.9 Type 2 diabetes mellitus without complications; E78.5 Hyperlipidemia, unspecified; Z98.890 Other specified postprocedural states; I34.1 Nonrheumatic mitral (valve) prolapse; F17.200 Nicotine dependence, unspecified, uncomplicated; F41.9 Anxiety disorder, unspecified; F31.9 Bipolar disorder, unspecified; Z79.899 Other long term (current) drug therapy
CPT/HCPCS: 49550; C1781; J2250; J1644; J1100; J0690; J2405; J2001; J3010; J1885; J2370; J0330; J2704; J1170; 88302

== ENCOUNTER → 2020-08-29 | Outpatient (CLI) | payer BC, OTHER | END | disposition home or self-care (01) | LOC: LABWHC1 16:06 | PROVIDERS: ATTEND Family Medicine | DX: Z20.822 Contact with and (suspected) exposure to COVID-19 (principal) | CPT/HCPCS: U0003; U0005 ==

== ENCOUNTER 2020-10-29 | Emergency (ER) | payer BC, OTHER | END 2020-10-29 18:04 | disposition home or self-care (01) | CPT/HCPCS: 36415; 80053; 82150; 83605; 83690; 85025; 85610; 85730; 81001; 80306; 80320; 74177; 96374; 96361; 99284; J1885; Q9967 ==

== ENCOUNTER → 2021-01-12 | Outpatient (CLI) | payer BC, OTHER ==
--- NOTE | 2021-01-12 12:00 | US ---
EXAMINATION TYPE: US abdomen complete DATE OF EXAM: 01/12/2021 COMPARISON: NONE CLINICAL HISTORY: 60-year-old male R10.32 LLQ abd pain,R10.12 LUQ abd pain. Left side general pain. TECHNIQUE: Multiple sonographic images of the abdomen are obtained. FINDINGS: EXAM MEASUREMENTS: Liver Length: 14.0 cm Gallbladder Wall: 0.1 cm CBD: 0.5 cm Spleen: 8.4 cm Right Kidney: 10.1 x 5.1 x 3.2 cm Left Kidney: 9.3 x 4.0 x 3.5 cm Pancreas: wnl Liver: wnl Gallbladder: wnl Evidence for sonographic Singh's sign: neg CBD: wnl Spleen: wnl Kidneys: No hydronephrosis. Upper IVC: wnl Abd Aorta: No AAA visualized IMPRESSION: Unremarkable sonographic examination of the abdomen.
== END | disposition home or self-care (01) ==
LOC: RADUSWWP 08:24
PROVIDERS: ATTEND Family Medicine
DX: R10.32 Left lower quadrant pain (principal); R10.12 Left upper quadrant pain
CPT/HCPCS: 76700

== ENCOUNTER → 2021-03-20 | Outpatient (CLI) | payer BC, OTHER ==
--- NOTE | 2021-03-20 21:34 | MR ---
EXAMINATION TYPE: MR brain wo con DATE OF EXAM: 03/20/2021 COMPARISON: NONE HISTORY: Headache, dizziness, memory loss since childhood, neck pain x30 years, and low back pain x40 years. TECHNIQUE: Multiplanar, multisequence imaging of the brain and brainstem is performed without IV cont rast. FINDINGS: Diffusion weighted images demonstrate no evidence of a recent infarct or other diffusion abnormality. There is mild ventricular and sulcal prominence. There are some scattered foci of T2 hyperintensity s een throughout the white matter bilaterally. Approximately 10-15 small to tiny scattered lesions are seen. Lesions are nonspecific in appearance and distribution. Midline structures demonstrate normal morphology. The craniocervical junction appears within normal limits. Normal vascular flow voids are present. The visualized sinuses are clear and the globes are i ntact. IMPRESSION: Mild diffuse age-related cerebral atrophy and mild white matter changes likely on basis o f combination of chronic small vessel ischemic change and altered vascular mechanics related to produ ct of migraine headaches.
--- NOTE | 2021-03-21 02:34 | MR ---
EXAMINATION TYPE: MR cspine/lspine wo con DATE OF EXAM: 03/20/2021 COMPARISON: None HISTORY: Neck pain, headaches, LBP, BLE radiculopathy. Multiplanar multiecho imaging of the cervical spine and lumbar spine without contrast. Cervical vertebra show some straightening. There is degenerative disc space narrowing at C4-5 and C5- 6 and C6-7 with spurring of the endplates. There is developmentally adequate spinal canal. The spinal canal measures 8 mm at C5-6 which is the narrowest point. There is no significant spinal stenosis. B rainstem is intact. Cervical spinal cord has normal signal pattern. There is no edema. There is no ce rvical paraspinal mass. Lumbar vertebra have normal alignment. There is mild degenerative disc space narrowing throughout the lumbar spine. There is no compression fracture. There is no spinal stenosis. There is developmentall y adequate spinal canal in the lumbar spine. The facet joints are intact. Lumbar nerve roots appear n ormal. The neural foramina are fairly well-maintained. There is no evidence of focal bone destruction . The sacroiliac joints are intact. There is no lumbar paraspinal mass. IMPRESSION: Mild cervical spondylotic changes. No spinal stenosis. Small posterior cervical disc bulging as above . No fracture. Mild spondylotic changes in the lumbar spine. No spinal stenosis. No evidence of any significant lumb ar disc herniation.
== END | disposition home or self-care (01) ==
LOC: RADMRIMAIN 15:08
PROVIDERS: ATTEND Psychiatry & Neurology Neurology
DX: M47.26 Other spondylosis with radiculopathy, lumbar region (principal); M50.323 Other cervical disc degeneration at C6-C7 level; M47.812 Spondylosis without myelopathy or radiculopathy, cervical region; G31.9 Degenerative disease of nervous system, unspecified
CPT/HCPCS: 70551; 72141; 72148

== ENCOUNTER → 2021-05-15 | Outpatient (CLI) | payer BC, OTHER | END | disposition home or self-care (01) | LOC: LABWHC1 11:56 | PROVIDERS: ATTEND Nurse Practitioner Family | DX: Z20.822 Contact with and (suspected) exposure to COVID-19 (principal) | CPT/HCPCS: U0003; C9803 ==

== ENCOUNTER 2021-05-18 11:45 | Emergency (ER) | payer OTHER ==
[2021-05-18 11:52] VITALS: BP 153/106; PULSE 68; RESP 18; TEMP 98
[2021-05-18] MEDS ORDERED: MORPHINE SULFATE 4 MG/ML SYRINGE IV STA (12:02)
[2021-05-18] MEDS ORDERED: MORPHINE SULFATE 4 MG/ML SYRINGE IM STA (12:03)
--- NOTE | 2021-05-18 12:12 | ED ---
General Adult HPI - General Chief complaint: Extremity Injury, Upper Stated complaint: Lt Shoulder/Arm Pain Time Seen by Provider: 05/18/21 11:56 Source: patient, RN notes reviewed Mode of arrival: ambulatory Limitations: no limitations - History of Present Illness Initial comments: 60-year-old male with a past medical history of COPD, diabetes mellitus, DVT, hyperlipidemia presents to the emergency room for left shoulder pain. Patient states he had a massage in that about 2 hours later started to have severe left shoulder pain. This was 2 days ago. Patient states he cannot lift his arm above his head because it is painful. States it hurts to turn his head to the left. States it pulls in his anterior shoulder and chest when he moves his arm .Patient has no other complaints at this time including shortness of breath, chest pain, abdominal pain, nausea or vomiting, headache, or visual changes. - Related Data Home Medications Medication Instructions Recorded Confirmed Gabapentin 800 mg PO TID 05/18/21 05/18/21 Ibuprofen [Motrin] 800 mg PO TID 05/18/21 05/18/21 Previous Rx's Medication Instructions Recorded Cyclobenzaprine [Flexeril] 10 mg PO TID #10 tab 05/18/21 Allergies Allergy/AdvReac Type Severity Reaction Status Date / Time No Known Allergies Allergy Verified 05/18/21 13:01 Review of Systems ROS Statement: Those systems with pertinent positive or pertinent negative responses have been documented in the HPI. ROS Other: All systems not noted in ROS Statement are negative. Past Medical History Past Medical History: COPD, Diabetes Mellitus, Deep Vein Thrombosis (DVT), Hyperlipidemia, Mitral Valve Prolapse (MVP), Osteoarthritis (OA) Additional Past Medical History / Comment(s): heart murmur, DVT years ago, chronic back, foot & leg pain, states he's not diabetic, one said he was, one said he wasn't, took metformin in past History of Any Multi-Drug Resistant Organisms: None Reported Past Surgical History: Orthopedic Surgery Additional Past Surgical History / Comment(s): left leg vein surg., right wrist surg. Past Anesthesia/Blood Transfusion Reactions: No Reported Reaction Past Psychological History: Anxiety, Bipolar, Depression Smoking Status: Current every day smoker Past Alcohol Use History: Occasional Past Drug Use History: Marijuana - Past Family History Father Family Medical History: No Reported History Mother Family Medical History: Unable to Obtain Brother(s) Family Medical History: No Reported History Sister(s) Family Medical History: No Reported History General Exam - General Exam Comments Initial Comments: Shoulder pain: Patient has about 45 flexion and abduction of the left shoulder. Full range of motion of the elbow. Radial pulse 2+. [employer] strength 5 out of 5. Capillary refill less than 2 seconds. Sensation intact. Anterior shoulder tenderness noted. Limitations: no limitations General appearance: alert, in no apparent distress Head exam: Present: atraumatic Eye exam: Present: normal appearance, PERRL, EOMI. Absent: scleral icterus, conjunctival injection ENT exam: Present: normal exam, mucous membranes moist Neck exam: Present: tenderness (Tenderness to the left paraspinal cervical muscles.). Absent: full ROM (Patient able to turn head to the right but only rondon s 15 rotation to the left.) Respiratory exam: Present: normal lung sounds bilaterally. Absent: respiratory distress, wheezes Cardiovascular Exam: Present: regular rate, normal rhythm, normal heart sounds GI/Abdominal exam: Present: soft, normal bowel sounds. Absent: distended, tenderness Course Vital Signs 05/18/21 11:50 Temperature 98 F Pulse Rate 68 Respiratory 18 Rate Blood Pressure 153/106 O2 Sat by Pulse 97 Oximetry EKG Findings - EKG Comments: EKG Findings:: normal sinus rhythm, ventricular rate 72, MT interval 136, QTC 409 Medical Decision Making - Medical Decision Making Vitals are stable. HPI physical exam is documented. Patient symptoms consistent with musculoskeletal shoulder pain. Her laboratory evaluation perfo rmed given patient's pain did radiate into his chest. CBC CMP unremarkable. Troponin is negative. D-dimer is 0.18. Chest x-ray shows no acute process. Patient was given pain medication and had significant improvement. He is hungry requesting for food. At this time patient be discharged home with muscle relaxers and tylenol 3. He will return here for any worsening symptoms. - Lab Data Result diagrams: 05/18/21 13:30 05/18/21 13:30 Lab Results 05/18/21 05/18/21 05/18/21 Range/Units 13:30 13:30 13:30 WBC 7.4 (3.8-10.6) k/uL RBC 4.79 (4.30-5.90) m/uL Hgb 13.9 (13.0-17.5) gm/dL Hct 43.8 (39.0-53.0) % MCV 91.3 (80.0-100.0) fL MCH 29.0 (25.0-35.0) pg MCHC 31.8 (31.0-37.0) g/dL RDW 13.1 (11.5-15.5) % Plt Count 245 (150-450) k/uL MPV 7.5 Neutrophils % 75 % Lymphocytes % 14 % Monocytes % 7 % Eosinophils % 3 % Basophils % 1 % Neutrophils # 5.6 (1.3-7.7) k/uL Lymphocytes # 1.1 (1.0-4.8) k/uL Monocytes # 0.5 (0-1.0) k/uL Eosinophils # 0.2 (0-0.7) k/uL Basophils # 0.0 (0-0.2) k/uL PT 10.3 (9.0-12.0) sec INR 1.0 (<1.2) APTT 25.4 (22.0-30.0) sec D-Dimer 0.18 (<0.60) mg/L FEU Sodium 138 (137-145) mmol/L Potassium 3.8 (3.5-5.1) mmol/L Chloride 106 (98-107) mmol/L Carbon Dioxide 25 (22-30) mmol/L Anion Gap 7 mmol/L BUN 12 (9-20) mg/dL Creatinine 0.85 (0.66-1.25) mg/dL Est GFR (CKD-EPI)AfAm >90 (>60 ml/min/1.73 sqM) Est GFR (CKD-EPI)NonAf >90 (>60 ml/min/1.73 sqM) Glucose 134 H (74-99) mg/dL Calcium 9.0 (8.4-10.2) mg/dL Magnesium 2.1 (1.6-2.3) mg/dL Total Bilirubin 0.7 (0.2-1.3) mg/dL AST 22 (17-59) U/L ALT 16 (4-49) U/L Alkaline Phosphatase 113 (38-126) U/L Troponin I (0.000-0.034) ng/mL Total Protein 7.0 (6.3-8.2) g/dL Albumin 4.0 (3.5-5.0) g/dL 05/18/21 Range/Units 13:30 WBC (3.8-10.6) k/uL RBC (4.30-5.90) m/uL Hgb (13.0-17.5) gm/dL Hct (39.0-53.0) % MCV (80.0-100.0) fL MCH (25.0-35.0) pg MCHC (31.0-37.0) g/dL RDW (11.5-15.5) % Plt Count (150-450) k/uL MPV Neutrophils % % Lymphocytes % % Monocytes % % Eosinophils % % Basophils % % Neutrophils # (1.3-7.7) k/uL Lymphocytes # (1.0-4.8) k/uL Monocytes # (0-1.0) k/uL Eosinophils # (0-0.7) k/uL Basophils # (0-0.2) k/uL PT (9.0-12.0) sec INR (<1.2) APTT (22.0-30.0) sec D-Dimer (<0.60) mg/L FEU Sodium (137-145) mmol/L Potassium (3.5-5.1) mmol/L Chloride (98-107) mmol/L Carbon Dioxide (22-30) mmol/L Anion Gap mmol/L BUN (9-20) mg/dL Creatinine (0.66-1.25) mg/dL Est GFR (CKD-EPI)AfAm (>60 ml/min/1.73 sqM) Est GFR (CKD-EPI)NonAf (>60 ml/min/1.73 sqM) Glucose (74-99) mg/dL Calcium (8.4-10.2) mg/dL Magnesium (1.6-2.3) mg/dL Total Bilirubin (0.2-1.3) mg/dL AST (17-59) U/L ALT (4-49) U/L Alkaline Phosphatase (38-126) U/L Troponin I <0.012 (0.000-0.034) ng/mL Total Protein (6.3-8.2) g/dL Albumin (3.5-5.0) g/dL Disposition Clinical Impression: Shoulder pain, left Disposition: HOME SELF-CARE Condition: Good Instructions (If sedation given, give patient instructions): Shoulder Pain (ED) Additional Instructions: Please take muscle relaxer or Tylenol 3 as needed. Do not take them together. Do not drive while taking these. Follow-up with your doctor. You can also follow up with orthopedics. Return to the emergency room for any worsening symptoms. Prescriptions: Cyclobenzaprine [Flexeril] 10 mg PO TID #10 tab Is patient prescribed a controlled substance at d/c from ED?: No Referrals: Cherie Coyne MD [Primary Care Provider] - 1-2 days Lilliana Alvares DO [Doctor of Osteopathic Medicine] - 1-2 days Time of Disposition: 14:27
--- NOTE | 2021-05-18 12:43 | XR ---
EXAMINATION TYPE: XR shoulder complete LT DATE OF EXAM: 05/18/2021 COMPARISON: NONE HISTORY: Pain TECHNIQUE: Three views are submitted. FINDINGS: The osseous structures are intact. There is no acute fracture or dislocation. The AC joint is maint ained. Diffuse osteopenia. IMPRESSION: 1. No acute process.
--- NOTE | 2021-05-18 12:43 | XR ---
EXAMINATION TYPE: XR chest 2V DATE OF EXAM: 05/18/2021 COMPARISON: 06/06/2019 TECHNIQUE: PA and lateral views submitted. HISTORY: Chest pain FINDINGS: The lungs are clear and there is no pneumothorax, pleural effusion, or focal pneumonia. Hyperinflat ion suggests COPD. Diffuse osteopenia. Hyperinflation suggests COPD. IMPRESSION: 1. No acute process. Correlate for COPD.
[2021-05-18] MEDS ORDERED: SODIUM CHLORIDE 0.9% 500 ML 500 ML IV STA (13:11)
[2021-05-18] MEDS ORDERED: KETOROLAC 30 MG/ML 1 ML VIAL IVP STA ×2 (13:11→14:33)
[2021-05-18 13:37] LABS: Basophils % (A) 1 %; Eosinophils # (A) 0.2 k/uL (0-0.7); Eosinophils % (A) 3 %; HCT 43.8 % (39.0-53.0); HGB 13.9 gm/dL (13.0-17.5); Lymphocytes # (A) 1.1 k/uL (1.0-4.8); Lymphocytes % (A) 14 %; MCHC 31.8 g/dL (31.0-37.0); MCV 91.3 fL (80.0-100.0); Mean Platelet Volume 7.5; Monocytes # (A) 0.5 k/uL (0-1.0); Monocytes % (A) 7 %; Neutrophils # (A) 5.6 k/uL (1.3-7.7); Neutrophils % (A) 75 %; Platelet Count 245 k/uL (150-450); RBC 4.79 m/uL (4.30-5.90); RDW 13.1 % (11.5-15.5); WBC 7.4 k/uL (3.8-10.6)
[2021-05-18 13:47] LABS: ALT 16 U/L (4-49); AST 22 U/L (17-59); African American GFR (CKD) >90 (>60 ml/min/1.73 sqM); Alkaline Phosphatase 113 U/L (38-126); Anion Gap 7 mmol/L; Blood Urea Nitrogen 12 mg/dL (9-20); Carbon Dioxide 25 mmol/L (22-30); Chloride 106 mmol/L (98-107); Glucose 134 mg/dL (74-99); Magnesium 2.1 mg/dL (1.6-2.3); Non-African American GFR(CKD) >90 (>60 ml/min/1.73 sqM); Potassium 3.8 mmol/L (3.5-5.1); Sodium 138 mmol/L (137-145); Total Bilirubin 0.7 mg/dL (0.2-1.3)
[2021-05-18 14:07] LABS: Partial Thromboplastin Time 25.4 sec (22.0-30.0); Prothrombin Time 10.3 sec (9.0-12.0)
[2021-05-18] MEDS ORDERED: ACET/COD 300 MG/30 MG STARTER PACK 6 TAB BTL PO STA (14:27)
== END 2021-05-18 14:53 | disposition home or self-care (01) ==
LOC: EC 11:45
DX: M25.512 Pain in left shoulder (principal); E11.9 Type 2 diabetes mellitus without complications; J44.9 Chronic obstructive pulmonary disease, unspecified; F17.200 Nicotine dependence, unspecified, uncomplicated; F12.90 Cannabis use, unspecified, uncomplicated
CPT/HCPCS: 36415; 93005; 85379; 80053; 83735; 84484; 85025; 85610; 85730; 73030; 71046; 99284; 96374; 96376; 96372; J2270; J1885

== ENCOUNTER 2022-03-11 09:30 | Emergency (ER) | payer BC, MEDICARE, OTHER ==
[2022-03-11 09:42] VITALS: TEMP 98
[2022-03-11] MEDS ORDERED: ORPHENADRINE 30 MG/ML 2 ML VIAL IM STA (09:56)
[2022-03-11] MEDS ORDERED: KETOROLAC 15 MG/ML 1 ML VIAL IM STA (09:56)
--- NOTE | 2022-03-11 09:59 | ED ---
General Adult HPI - General Chief complaint: Back Pain/Injury Stated complaint: Back Pain Time Seen by Provider: 03/11/22 09:40 Source: patient, RN notes reviewed, old records reviewed Mode of arrival: ambulatory Limitations: no limitations - History of Present Illness Initial comments: This is a 61-year-old male who presents emergency Department complaining of long-standing history of lower back pain. Patient states he started to get worse about 2 or 3 days ago. Patient was given a prescription from neurology and he never picked up the tramadol prescription. Patient denies any radiation of the pain down the leg. Patient denies any bowel or bladder dysfunction. Patient denies any numbness weakness. Patient states the pain is in the lower l eft back and movement exacerbates the pain. Patient denies any injury or heavy lifting. Patient also is requesting time off work. - Related Data Home Medications Medication Instructions Recorded Confirmed Gabapentin 800 mg PO TID 05/18/21 05/18/21 Ibuprofen [Motrin] 800 mg PO TID 05/18/21 05/18/21 Previous Rx's Medication Instructions Recorded Cyclobenzaprine [Flexeril] 10 mg PO TID #10 tab 05/18/21 Cyclobenzaprine [Flexeril] 10 mg PO TID #10 tab 03/11/22 Ketorolac [Toradol] 10 mg PO Q6HR #15 tab 03/11/22 Allergies Allergy/AdvReac Type Severity Reaction Status Date / Time No Known Allergies Allergy Verified 03/11/22 09:42 Review of Systems ROS Statement: Those systems with pertinent positive or pertinent negative responses have been documented in the HPI. ROS Other: All systems not noted in ROS Statement are negative. Past Medical History Past Medical History: COPD, Diabetes Mellitus, Deep Vein Thrombosis (DVT), Hyperlipidemia, Mitral Valve Prolapse (MVP), Osteoarthritis (OA) Additional Past Medical History / Comment(s): heart murmur, DVT years ago, chronic back, foot & leg pain, states he's not diabetic, one said he was, one said he wasn't, took metformin in past History of Any Multi-Drug Resistant Organisms: None Reported Past Surgical History: Orthopedic Surgery Additional Past Surgical History / Comment(s): left leg vein surg., right wrist surg. Past Anesthesia/Blood Transfusion Reactions: No Reported Reaction Past Psychological History: Anxiety, Bipolar, Depression Smoking Status: Current every day smoker Past Alcohol Use History: Occasional Past Drug Use History: Marijuana - Past Family History Father Family Medical History: No Reported History Mother Family Medical History: Unable to Obtain Brother(s) Family Medical History: No Reported History Sister(s) Family Medical History: No Reported History General Exam - General Exam Comments Initial Comments: GENERAL: Patient is well-developed and well-nourished. Patient is nontoxic and well- hydrated and is in mild distress. ENT: Neck is soft and supple. No significant lymphadenopathy is noted. Oropharynx is clear. Moist mucous membranes. EYES: The sclera were anicteric and conjunctiva were pink and moist. SKIN: Skin is clear with no lesions or rashes and otherwise unremarkable. NEUROLOGIC: Patient is alert and oriented x3. Cranial nerves II through XII are grossly intact. Motor and sensory are also intact. Normal speech, volume and content. Symmetrical smile. MUSCULOSKELETAL: Normal extremities with adequate strength and full range of motion. No lower extremity swelling or edema. No calf tenderness. Patient has pain above the iliac crest and lateral to the spine in the paraspinous muscles. Straight leg test is normal bilaterally LYMPHATICS: No significant lymphadenopathy is noted PSYCHIATRIC: Normal psychiatric evaluation. Limitations: no limitations Course Vital Signs 03/11/22 09:39 Temperature 98.0 F Pulse Rate 73 Respiratory 18 Rate Blood Pressure 147/88 O2 Sat by Pulse 98 Oximetry Medical Decision Making - Medical Decision Making Patient received Norflex and Toradol in the emergency department was doing much better. I read the x-ray of the lumbosacral spine. Lumbosacral spine showed no fractures. Disposition Clinical Impression: Strain of lumbar region Disposition: HOME SELF-CARE Condition: Good Instructions (If sedation given, give patient instructions): Acute Low Back Pain (ED) Prescriptions: Cyclobenzaprine [Flexeril] 10 mg PO TID #10 tab Ketorolac [Toradol] 10 mg PO Q6HR #15 tab Is patient prescribed a controlled substance at d/c from ED?: No Referrals: Telma Butcher FNPBC [Primary Care Provider] - 1-2 days Time of Disposition: 11:03
--- NOTE | 2022-03-11 10:51 | XR ---
EXAMINATION TYPE: XR lumbosacral spine min 4V DATE OF EXAM: 03/11/2022 10:30 AM INDICATION: Patient age:Male; 61 years old; Reason for study: Left lower back pain; PHH. COMPARISON: MRI 03/20/2021 TECHNIQUE: Frontal, lateral , bilateral oblique and coned in L5-S1 lateral views of the spine. FINDINGS: No evidence of any acute osseous pathology. No evidence of loss of vertebral body height i s seen. There is normal alignment of the lumbar vertebral bodies. No significant degeneration changes throughout the spine. IMPRESSION: No acute fracture.
[2022-03-11 11:19] VITALS: BP 149/90; PULSE 68; RESP 16
== END 2022-03-11 11:19 | disposition home or self-care (01) ==
LOC: EC 09:30
DX: S39.012A Strain of muscle, fascia and tendon of lower back, initial encounter (principal); J44.9 Chronic obstructive pulmonary disease, unspecified; E11.9 Type 2 diabetes mellitus without complications; I82.409 Acute embolism and thrombosis of unspecified deep veins of unspecified lower extremity; E78.5 Hyperlipidemia, unspecified; M19.90 Unspecified osteoarthritis, unspecified site; F41.9 Anxiety disorder, unspecified; F32.A Depression, unspecified; F17.200 Nicotine dependence, unspecified, uncomplicated; F12.90 Cannabis use, unspecified, uncomplicated; Z79.899 Other long term (current) drug therapy
CPT/HCPCS: 72110; 99283; 96372 ×2; J2360; J1885; 96360

== ENCOUNTER 2022-03-22 23:10 | Emergency (ER) | payer BC, MEDICARE, OTHER ==
[2022-03-22 23:16] VITALS: BP 137/99; PULSE 86; RESP 15; TEMP 96.9
[2022-03-22] MEDS ORDERED: dexAMETHasone 2 MG TAB PO STA (23:49)
[2022-03-22] MEDS ORDERED: ACETAMINOPHEN TAB 500 MG TAB PO STA (23:49)
[2022-03-22] MEDS ORDERED: IBUPROFEN 800 MG TAB PO STA (23:49)
--- NOTE | 2022-03-22 23:49 | ED ---
URI HPI - General Chief Complaint: Upper Respiratory Infection Stated Complaint: Chest Pain, Cough, Congestion, Covid Test Time Seen by Provider: 03/22/22 23:36 Source: patient, RN notes reviewed, old records reviewed Mode of arrival: ambulatory Limitations: no limitations - History of Present Illness Initial Comments: This is a 7-year-old male DF for evaluation she presents today for not feeling well. Cough congestion no shortness of breath. No chest pain. Patient believes he has coronavirus elected coronavirus test patient's history of COPD diabetes high blood pressure high cholesterol MD Complaint: cough, sore throat, nasal congestion -: days(s) Severity: moderate Severity scale (1-10): 4 Quality: sharp Consistency: constant, intermittent Improves With: nothing Worsens With: nothing Context: sick contacts, recent travel Associated Symptoms: fever, chills, myalgias, nasal congestion, sore throat Treatments Prior to Arrival: none - Related Data Home Medications Medication Instructions Recorded Confirmed Gabapentin 800 mg PO TID 05/18/21 05/18/21 Ibuprofen [Motrin] 800 mg PO TID 05/18/21 05/18/21 Previous Rx's Medication Instructions Recorded Cyclobenzaprine [Flexeril] 10 mg PO TID #10 tab 05/18/21 Cyclobenzaprine [Flexeril] 10 mg PO TID #10 tab 03/11/22 Ketorolac [Toradol] 10 mg PO Q6HR #15 tab 03/11/22 Allergies Allergy/AdvReac Type Severity Reaction Status Date / Time No Known Allergies Allergy Verified 03/22/22 23:13 Review of Systems ROS Statement: Those systems with pertinent positive or pertinent negative responses have been documented in the HPI. ROS Other: All systems not noted in ROS Statement are negative. Past Medical History Past Medical History: COPD, Diabetes Mellitus, Deep Vein Thrombosis (DVT), Hyperlipidemia, Mitral Valve Prolapse (MVP), Osteoarthritis (OA) Additional Past Medical History / Comment(s): heart murmur, DVT years ago, chronic back, foot & leg pain, states he's not diabetic, one said he was, one said he wasn't, took metformin in past History of Any Multi-Drug Resistant Organisms: None Reported Past Surgical History: Orthopedic Surgery Additional Past Surgical History / Comment(s): left leg vein surg., right wrist surg. Past Anesthesia/Blood Transfusion Reactions: No Reported Reaction Past Psychological History: Anxiety, Bipolar, Depression Smoking Status: Current every day smoker Past Alcohol Use History: Occasional Past Drug Use History: Marijuana - Past Family History Father Family Medical History: No Reported History Mother Family Medical History: Unable to Obtain Brother(s) Family Medical History: No Reported History Sister(s) Family Medical History: No Reported History General Exam Limitations: no limitations General appearance: alert, in no apparent distress Head exam: Present: atraumatic, normocephalic, normal inspection Eye exam: Present: normal appearance, PERRL, EOMI. Absent: scleral icterus, conjunctival injection, periorbital swelling ENT exam: Present: normal exam, mucous membranes moist Neck exam: Present: normal inspection. Absent: tenderness, meningismus, lymphadenopathy Respiratory exam: Present: normal lung sounds bilaterally. Absent: respiratory distress, wheezes, rales, rhonchi, stridor Cardiovascular Exam: Present: regular rate, normal rhythm, normal heart sounds. Absent: systolic murmur, diastolic murmur, rubs, gallop, clicks GI/Abdominal exam: Present: soft, normal bowel sounds. Absent: distended, tenderness, guarding, rebound, rigid Extremities exam: Present: normal inspection, full ROM, normal capillary refill. Absent: tenderness, pedal edema, joint swelling, calf tenderness Back exam: Present: normal inspection Neurological exam: Present: alert, oriented X3, CN II-XII intact Psychiatric exam: Present: normal affect, normal mood Skin exam: Present: warm, dry, intact, normal color. Absent: rash Course Vital Signs 03/22/22 23:14 Temperature 96.9 F L Pulse Rate 86 Respiratory 15 Rate Blood Pressure 137/99 O2 Sat by Pulse 100 Oximetry - Reevaluation(s) Reevaluation #1: 03/22/22 Medical records reviewed Patient symptoms improved here in the ER Patient informed of results and questions answered Medical Decision Making - Medical Decision Making 61 male DF for evaluation of cough and congestion positive for coronavirus here in the emergency department. No distress and patient can be discharged home - Lab Data Lab Results 03/22/22 Range/Units 23:20 Coronavirus (PCR) Detected A (Not Detectd) Disposition Clinical Impression: Coronavirus infection Disposition: HOME SELF-CARE Condition: Fair Instructions (If sedation given, give patient instructions): Coronavirus Disease 2019 (COVID-19) Is patient prescribed a controlled substance at d/c from ED?: No Referrals: Cherie Coyne MD [Primary Care Provider] - 1-2 days Time of Disposition: 23:55
== END 2022-03-23 00:09 | disposition home or self-care (01) ==
LOC: EC 23:10
DX: R05.9 Cough, unspecified (principal); B97.29 Other coronavirus as the cause of diseases classified elsewhere; J44.9 Chronic obstructive pulmonary disease, unspecified; E11.9 Type 2 diabetes mellitus without complications; M19.90 Unspecified osteoarthritis, unspecified site; F41.9 Anxiety disorder, unspecified; F31.9 Bipolar disorder, unspecified; F17.200 Nicotine dependence, unspecified, uncomplicated; F12.90 Cannabis use, unspecified, uncomplicated; Z79.1 Long term (current) use of non-steroidal anti-inflammatories (NSAID); Z20.822 Contact with and (suspected) exposure to COVID-19
CPT/HCPCS: 93005; 87635; 99284; J8540

== ENCOUNTER 2022-04-09 02:06 | Emergency (ER) | payer BC, MEDICARE, OTHER ==
[2022-04-09 02:16] VITALS: BP 140/100; PULSE 104; RESP 18; TEMP 97.9
[2022-04-09] MEDS ORDERED: traMADol 50 MG TAB PO STA (04:03)
[2022-04-09] MEDS ORDERED: IBUPROFEN 800 MG TAB PO STA (04:03)
[2022-04-09] MEDS ORDERED: CEPHALEXIN 500 MG CAP PO STA (04:03)
[2022-04-09] MEDS ORDERED: traMADol 50 MG STARTER PACK 3 TAB BTL PO STA (04:04)
[2022-04-09] MEDS ORDERED: CEPHALEXIN 500MG STARTER PACK 4 CAP BTL PO STA (04:04)
[2022-04-09] MEDS ORDERED: IBUPROFEN 600 MG STARTER PACK 4 TAB BTL PO STA (04:04)
--- NOTE | 2022-04-09 04:04 | ED ---
Extremity Problem HPI - General Chief complaint: Extremity Problem,Nontraumatic Stated complaint: RT foot swollen Time Seen by Provider: 04/09/22 03:57 Source: patient, RN notes reviewed, old records reviewed Mode of arrival: ambulatory Limitations: no limitations - History of Present Illness Initial comments: This is a 7-year-old male DF for evaluation patient complaining of pain along his Achilles tendon of his right lower extremity right ankle. Patient states her some redness there is some tenderness there no injury noted. Patient is homeless does walk a lot may be due to overuse. No specific trauma noted. Patient is able to fully move the ankle and leg MD Complaint: extremity pain, extremity swelling -: days(s) Location: right, lower extremity History of Same: Yes -: Yes myalgia, Yes arthralgia Radiation: proximal Severity scale (1-10): 6 Quality: stabbing, aching Consistency: intermittent Improves with: nothing Worsens with: nothing Associated Symptoms: denies other symptoms, myalgias, arthralgias - Related Data Home Medications Medication Instructions Recorded Confirmed Gabapentin 800 mg PO TID 05/18/21 05/18/21 Ibuprofen [Motrin] 800 mg PO TID 05/18/21 05/18/21 Previous Rx's Medication Instructions Recorded Cyclobenzaprine [Flexeril] 10 mg PO TID #10 tab 05/18/21 Cyclobenzaprine [Flexeril] 10 mg PO TID #10 tab 03/11/22 Ketorolac [Toradol] 10 mg PO Q6HR #15 tab 03/11/22 Cephalexin [Keflex] 500 mg PO Q6HR #40 cap 04/09/22 Cephalexin [Keflex] 500 mg PO Q6HR #40 cap 04/09/22 Allergies Allergy/AdvReac Type Severity Reaction Status Date / Time No Known Allergies Allergy Verified 04/09/22 02:15 Review of Systems ROS Statement: Those systems with pertinent positive or pertinent negative responses have been documented in the HPI. ROS Other: All systems not noted in ROS Statement are negative. Past Medical History Past Medical History: COPD, Diabetes Mellitus, Deep Vein Thrombosis (DVT), Hyperlipidemia, Mitral Valve Prolapse (MVP), Osteoarthritis (OA) Additional Past Medical History / Comment(s): heart murmur, DVT years ago, chronic back, foot & leg pain, states he's not diabetic, one said he was, one said he wasn't, took metformin in past History of Any Multi-Drug Resistant Organisms: None Reported Past Surgical History: Orthopedic Surgery Additional Past Surgical History / Comment(s): left leg vein surg., right wrist surg. Past Anesthesia/Blood Transfusion Reactions: No Reported Reaction Past Psychological History: Anxiety, Bipolar, Depression Smoking Status: Current every day smoker Past Alcohol Use History: Occasional Past Drug Use History: Marijuana - Past Family History Father Family Medical History: No Reported History Mother Family Medical History: Unable to Obtain Brother(s) Family Medical History: No Reported History Sister(s) Family Medical History: No Reported History General Exam - General Exam Comments Initial Comments: No evidence of Achilles tendon injury Limitations: no limitations General appearance: alert, in no apparent distress Head exam: Present: atraumatic, normocephalic, normal inspection Eye exam: Present: normal appearance, PERRL, EOMI. Absent: scleral icterus, conjunctival injection, periorbital swelling ENT exam: Present: normal exam, mucous membranes moist Neck exam: Present: normal inspection. Absent: tenderness, meningismus, lymphadenopathy Respiratory exam: Present: normal lung sounds bilaterally. Absent: respiratory distress, wheezes, rales, rhonchi, stridor Cardiovascular Exam: Present: normal rhythm, tachycardia, normal heart sounds. Absent: systolic murmur, diastolic murmur, rubs, gallop, clicks GI/Abdominal exam: Present: soft, normal bowel sounds. Absent: distended, tenderness, guarding, rebound, rigid Extremities exam: Present: normal inspection, full ROM, normal capillary refill. Absent: tenderness, pedal edema, joint swelling, calf tenderness Back exam: Present: normal inspection Neurological exam: Present: alert, oriented X3, CN II-XII intact Psychiatric exam: Present: normal affect, normal mood Skin exam: Present: warm, dry, intact, normal color. Absent: rash Course Vital Signs 04/09/22 02:14 Temperature 97.9 F Pulse Rate 104 H Respiratory 18 Rate Blood Pressure 140/100 O2 Sat by Pulse 100 Oximetry - Reevaluation(s) Reevaluation #1: 04/09/22 Medical record is reviewed Patient symptoms are improved here in the ER Patient informed results and questions are answered Medical Decision Making - Medical Decision Making 61 male to the emergency department for evaluation of right ankle pain swelling and redness. Patient has mild cellulitis place on antibiotics and pain and can be discharged home - Radiology Data Radiology results: report reviewed (X-ray ankle is negative for acute disease), image reviewed Disposition Clinical Impression: Cellulitis of right ankle Disposition: HOME SELF-CARE Condition: Good Instructions (If sedation given, give patient instructions): Cellulitis (ED) Prescriptions: Cephalexin [Keflex] 500 mg PO Q6HR #40 cap Cephalexin [Keflex] 500 mg PO Q6HR #40 cap Is patient prescribed a controlled substance at d/c from ED?: No Referrals: Cherie Coyne MD [Primary Care Provider] - 1-2 days Time of Disposition: 04:30
--- NOTE | 2022-04-09 06:03 | XR ---
EXAM: XR Right Ankle Complete, 3 or More Views CLINICAL HISTORY: ITS.REASON XR Reason: pain TECHNIQUE: Frontal, lateral and oblique views of the right ankle. COMPARISON: No relevant prior studies available. FINDINGS: Bones/joints: Unremarkable. No acute fracture. No dislocation. Soft tissues: Unremarkable. IMPRESSION: No evidence of acute fracture or dislocation.
== END 2022-04-09 07:27 | disposition home or self-care (01) ==
LOC: EC 02:06
DX: L03.115 Cellulitis of right lower limb (principal); J44.9 Chronic obstructive pulmonary disease, unspecified; E11.9 Type 2 diabetes mellitus without complications; Z86.718 Personal history of other venous thrombosis and embolism; F41.9 Anxiety disorder, unspecified; F31.9 Bipolar disorder, unspecified; F17.200 Nicotine dependence, unspecified, uncomplicated; F12.90 Cannabis use, unspecified, uncomplicated; Z79.899 Other long term (current) drug therapy
CPT/HCPCS: 99283

== ENCOUNTER 2022-04-11 04:16 | Inpatient (IN) | payer BC, MEDICARE, OTHER ==
--- NOTE | 2022-04-11 04:22 | ED ---
Recheck HPI - General Chief Complaint: Extremity Injury, Lower Stated Complaint: Feet Swelling Time Seen by Provider: 04/11/22 04:21 Source: patient Mode of arrival: ambulatory Limitations: no limitations - Related Data Home Medications Medication Instructions Recorded Confirmed Gabapentin 800 mg PO TID 05/18/21 05/18/21 Ibuprofen [Motrin] 800 mg PO TID 05/18/21 05/18/21 Previous Rx's Medication Instructions Recorded Cyclobenzaprine [Flexeril] 10 mg PO TID #10 tab 05/18/21 Cyclobenzaprine [Flexeril] 10 mg PO TID #10 tab 03/11/22 Ketorolac [Toradol] 10 mg PO Q6HR #15 tab 03/11/22 Cephalexin [Keflex] 500 mg PO Q6HR #40 cap 04/09/22 Cephalexin [Keflex] 500 mg PO Q6HR #40 cap 04/09/22 Allergies Allergy/AdvReac Type Severity Reaction Status Date / Time No Known Allergies Allergy Verified 04/11/22 04:17 Review of Systems ROS Statement: Those systems with pertinent positive or pertinent negative responses have been documented in the HPI. ROS Other: All systems not noted in ROS Statement are negative. Past Medical History Past Medical History: COPD, Diabetes Mellitus, Deep Vein Thrombosis (DVT), Hyperlipidemia, Mitral Valve Prolapse (MVP), Osteoarthritis (OA) Additional Past Medical History / Comment(s): heart murmur, DVT years ago, chronic back, foot & leg pain, states he's not diabetic, one drJason said he was, one said he wasn't, took metformin in past History of Any Multi-Drug Resistant Organisms: None Reported Past Surgical History: Orthopedic Surgery Additional Past Surgical History / Comment(s): left leg vein surg., right wrist surg. Past Anesthesia/Blood Transfusion Reactions: No Reported Reaction Past Psychological History: Anxiety, Bipolar, Depression Smoking Status: Current every day smoker Past Alcohol Use History: Occasional Past Drug Use History: Marijuana - Past Family History Father Family Medical History: No Reported History Mother Family Medical History: Unable to Obtain Brother(s) Family Medical History: No Reported History Sister(s) Family Medical History: No Reported History General Exam Limitations: no limitations Course Vital Signs 04/11/22 04/11/22 04:17 04:26 Temperature 98 F 98.4 F Pulse Rate 78 70 Respiratory 16 16 Rate Blood Pressure 135/96 139/86 O2 Sat by Pulse 100 100 Oximetry Medical Decision Making - Medical Decision Making 61 male DF for evaluation. Patient was here recently right lower Shorty pain diagnosis cellulitis of the ankle. The cellulitis is spread notes. Differential almost to his knee. Pain up his right leg Disposition Clinical Impression: Cellulitis of right leg, Failure of outpatient treatment Disposition: ADMITTED IP TO THIS HOSP Condition: Good Is patient prescribed a controlled substance at d/c from ED?: No Referrals: Cherie Coyne MD [Primary Care Provider] - 1-2 days Time of Disposition: 06:00
[2022-04-11] MEDS ORDERED: MORPHINE SULFATE 4 MG/ML SYRINGE IV STA (05:17)
[2022-04-11] MEDS ORDERED: ONDANSETRON 4 MG/2 ML VIAL IVP PRN (05:17)
[2022-04-11] MEDS ORDERED: SODIUM CHLORIDE 0.9% 1,000 ML IV STA ×2 (05:17)
[2022-04-11] MEDS ORDERED: VANCOMYCIN IV PER PHARMACY 1 EACH MISC MISCELLANE PRN (05:17)
[2022-04-11] MEDS ORDERED: NALOXONE 0.4 MG/ML 1 ML VIAL IV PRN (05:17)
[2022-04-11] MEDS: SODIUM CHLORIDE 0.9% 1,000 ML IV SCH ×2 (05:52→13:16)
[2022-04-11 05:53] LABS: Basophils % (A) 1 %; Eosinophils # (A) 0.1 k/uL (0-0.7); Eosinophils % (A) 3 %; HCT 40.5 % (39.0-53.0); HGB 13.3 gm/dL (13.0-17.5); Lymphocytes % (A) 19 %; MCH 29.5 pg (25.0-35.0); MCHC 32.9 g/dL (31.0-37.0); MCV 89.5 fL (80.0-100.0); Mean Platelet Volume 8.3; Monocytes # (A) 0.2 k/uL (0-1.0); Monocytes % (A) 4 %; Neutrophils # (A) 3.8 k/uL (1.3-7.7); Neutrophils % (A) 72 %; Platelet Count 156 k/uL (150-450); RBC 4.52 m/uL (4.30-5.90); RDW 13.4 % (11.5-15.5); WBC 5.2 k/uL (3.8-10.6)
[2022-04-11 06:02] LABS: ALT 15 U/L (4-49); AST 27 U/L (17-59); African American GFR (CKD) >90 (>60 ml/min/1.73 sqM); Albumin 4.2 g/dL (3.5-5.0); Alkaline Phosphatase 94 U/L (38-126); Anion Gap 8 mmol/L; Blood Urea Nitrogen 18 mg/dL (9-20); Calcium 7.9 mg/dL (8.4-10.2); Carbon Dioxide 25 mmol/L (22-30); Chloride 109 mmol/L (98-107); Glucose 90 mg/dL (74-99); Magnesium 1.9 mg/dL (1.6-2.3); Non-African American GFR(CKD) >90 (>60 ml/min/1.73 sqM); Phosphorus 3.4 mg/dL (2.5-4.5); Potassium 3.5 mmol/L (3.5-5.1); Sodium 142 mmol/L (137-145); Total Bilirubin 0.4 mg/dL (0.2-1.3); Total Protein 6.9 g/dL (6.3-8.2)
[2022-04-11 06:04] LABS: Partial Thromboplastin Time 26.4 sec (22.0-30.0); Prothrombin Time 10.6 sec (9.0-12.0)
[2022-04-11] MEDS ORDERED: VANCOMYCIN 1,000 MG in SODIUM CHLORIDE 0.9% 250 ML IVPB ONE (07:00)
--- NOTE | 2022-04-11 08:22 | P.HPIM ---
History of Present Illness This is a pleasant 61 years old male with multiple medical problems as below presents because of right foot and ankle pain and swelling of 2 days' duration as he states. patient came to emergency room two days ago for the same complaint , he had right foot xray showing no fracture or dislocation , He was discharged on Keflex for cellulitis, patient presents with similar complaint of right foot/right ankle swelling and warmth and tenderness suspicious for cellulitis versus osteomyelitis. Patient denies any other symptoms, no chest pain or dyspnea, no abdominal pain and vomiting no diarrhea, no urinary complaints, no headache dizziness weakness or numbness He admits to smoking cigarettes and was counseled and agrees to the nicotine patch, he states that he smokes 3-4 cigarettes a day. Also he drinks alcohol occasionally but he denies any illicit drugs Vital signs stable and patient is afebrile Labs looked normal including CBC, INR, BMP and liver enzymes EKG showing stricture rhythm at [address]-T changes Emergency room patient was started on ceftriaxone and IV vancomycin Review of Systems Review of systems CONSTITUTIONAL: No fever, no malaise, no fatigue. HEENT: No recent visual problems or hearing problems. Denied any sore throat. CARDIOVASCULAR: No orthopnea, PND, no palpitations, no syncope. PULMONARY: No shortness of breath, no cough, no hemoptysis. GASTROINTESTINAL: No diarrhea, no nausea, no vomiting, no abdominal pain. Normoactive bowel sounds. NEUROLOGICAL: No headaches, no weakness, no numbness. HEMATOLOGICAL: Denies any bleeding or petechiae. GENITOURINARY: Denies any burning micturition, frequency, or urgency. MUSCULOSKELETAL/RHEUMATOLOGICAL: Denies any joint pain, swelling, or any muscle pain. ENDOCRINE: Denies any polyuria or polydipsia. Past Medical History Past Medical History: COPD, Diabetes Mellitus, Deep Vein Thrombosis (DVT), Hyperlipidemia, Mitral Valve Prolapse (MVP), Osteoarthritis (OA) Additional Past Medical History / Comment(s): heart murmur, DVT years ago, chronic back, foot & leg pain, states he's not diabetic, one said he was, one said he wasn't, took metformin in past History of Any Multi-Drug Resistant Organisms: None Reported Past Surgical History: Orthopedic Surgery Additional Past Surgical History / Comment(s): left leg vein surg., right wrist surg. Past Anesthesia/Blood Transfusion Reactions: No Reported Reaction Past Psychological History: Anxiety, Bipolar, Depression Smoking Status: Current every day smoker Past Alcohol Use History: Occasional Past Drug Use History: Marijuana - Past Family History Father Family Medical History: No Reported History Mother Family Medical History: Unable to Obtain Brother(s) Family Medical History: No Reported History Sister(s) Family Medical History: No Reported History Medications and Allergies Home Medications Medication Instructions Recorded Confirmed Type Cyclobenzaprine [Flexeril] 10 mg PO TID #10 tab 05/18/21 Rx Gabapentin 800 mg PO TID 05/18/21 05/18/21 History Ibuprofen [Motrin] 800 mg PO TID 05/18/21 05/18/21 History Cyclobenzaprine [Flexeril] 10 mg PO TID #10 tab 03/11/22 Rx Ketorolac [Toradol] 10 mg PO Q6HR #15 tab 03/11/22 Rx Cephalexin [Keflex] 500 mg PO Q6HR #40 cap 04/09/22 Rx Cephalexin [Keflex] 500 mg PO Q6HR #40 cap 04/09/22 Rx Allergies Allergy/AdvReac Type Severity Reaction Status Date / Time No Known Allergies Allergy Verified 04/11/22 08:04 Physical Exam Vitals: Vital Signs Temp Pulse Resp BP Pulse Ox 04/11/22 06:46 71 16 138/111 100 04/11/22 06:02 65 16 99 04/11/22 05:53 66 16 132/80 99 04/11/22 04:26 98.4 F 70 16 139/86 100 04/11/22 04:17 98 F 78 16 135/96 100 Intake and Output 04/10/22 04/11/22 04/11/22 22:59 06:59 14:59 Other: Weight 61.235 kg GENERAL: The patient is alert and oriented x3, not in any acute distress. Well developed, well nourished. HEENT: Pupils are round and equally reacting to light. EOMI. No scleral icterus. No conjunctival pallor. Normocephalic, atraumatic. No pharyngeal erythema. No thyromegaly. CARDIOVASCULAR: S1 and S2 present. No murmurs, rubs, or gallops. PULMONARY: Chest is clear to auscultation, no wheezing or crackles. ABDOMEN: Soft, nontender, nondistended, normoactive bowel sounds. No palpable organomegaly. MUSCULOSKELETAL: No joint swelling or deformity. -EXTREMITIES: No cyanosis, clubbing, or pedal edema. right ankle or foot swelling NEUROLOGICAL: Gross neurological examination did not reveal any focal deficits. SKIN: No rashes. no petechiae. Results CBC & Chem 7: 04/11/22 05:36 04/11/22 05:36 Labs: Abnormal Lab Results - Last 24 Hours (Table) 04/11/22 Range/Units 05:36 Chloride 109 H (98-107) mmol/L Calcium 7.9 L (8.4-10.2) mg/dL Assessment and Plan Assessment: Right foot/ankle Cellulitis versus arthritis, failed outpatient treatment Nicotine dependence Diabetes mellitus Hypertension Hyperlipidemia COPD, no acute exacerbation History of deep venous thrombosis History of mitral valve prolapse History of osteoarthritis History of anxiety, depression, not an active issue Plan: Continue with antibiotics, currently on IV vancomycin and ceftriaxone Infectious disease consult Follow-up culture results We will consult orthopedic team to Labs and medication were reviewed.. Continue same treatment. Continue with symptomatic treatment. Resume home medication. Monitor labs and vitals. DVT and GI prophylaxis. Further recommendations as per clinical course of the patient DVT prophylaxis: Subcutaneous heparin GI Prophylaxis: Pepcid PT/OT: Pending, currently deferred Prognosis is guarded
[2022-04-11] MEDS: NICOTINE 14MG/24HR PATCH TRANSDERM SCH (08:36)
[2022-04-11] MEDS: HEPARIN SODIUM,PORCINE/PF 5,000 UNIT/0.5 ML SYRINGE SQ SCH ×2 (08:37→22:17)
[2022-04-11] MEDS: FAMOTIDINE 20 MG/2 ML VIAL IV SCH (08:37)
--- NOTE | 2022-04-11 12:48 | P.CNOR ---
History of Present Illness - [facility] Consult date: 04/11/22 Consult reason: other (Right ankle/foot pain and swelling) History of present illness: Patient is a 61-year-old male who presented to [facility] today for further evaluation of pain and swelling involving the right lower extremity. Patient was initially evaluated at [facility] on 04/09/2022 with the same issue. He was diagnosed with cellulitis and sent home with oral antibiotics. Initial x-rays at that time were done which demonstrated no acute fractures or dislocations. Patient reported back to the hospital today due to worsening pain and swelling. He was examined today in the emergency room at bedside. He is sleeping upon exam, he was easily awoken bowl and answered all my questions appropriately. He states that he has been taking the antibiotics as instructed. He denies any previous trauma, this to include prior to his recent hospital visit. He denies any fevers or chills at this time. Patient denies feeling sick at this time. Denies any previous surgery to the right lower extremity. He notes most of the pain along the Achilles tendon and into the hindfoot in both sides of the ankle. He denies any knee pain, hip pain at this time. He has no other orthopedic complaints. Review of Systems Constitutional: Reports as per HPI Past Medical History Past Medical History: COPD, Diabetes Mellitus, Deep Vein Thrombosis (DVT), Hyperlipidemia, Mitral Valve Prolapse (MVP), Osteoarthritis (OA) Additional Past Medical History / Comment(s): heart murmur, DVT years ago, chronic back, foot & leg pain, states he's not diabetic, one said he was, one said he wasn't, took metformin in past History of Any Multi-Drug Resistant Organisms: None Reported Past Surgical History: Orthopedic Surgery Additional Past Surgical History / Comment(s): left leg vein surg., right wrist surg. Past Anesthesia/Blood Transfusion Reactions: No Reported Reaction Past Psychological History: Anxiety, Bipolar, Depression Smoking Status: Current every day smoker Past Alcohol Use History: Occasional Past Drug Use History: Marijuana - Past Family History Father Family Medical History: No Reported History Mother Family Medical History: Unable to Obtain Brother(s) Family Medical History: No Reported History Sister(s) Family Medical History: No Reported History Medications and Allergies Home Medications Medication Instructions Recorded Confirmed Type Gabapentin 800 mg PO TID 05/18/21 04/11/22 History Cephalexin [Keflex] 500 mg PO QID 04/11/22 04/11/22 History Allergies Allergy/AdvReac Type Severity Reaction Status Date / Time No Known Allergies Allergy Verified 04/11/22 08:04 Physical Examination Right lower extremity: There are no obvious open lesions or sores present throughout the right lower extremity, this to include knee, lower leg, foot or ankle. There is notable swelling in the forefoot area and also posterior to the medial and lateral malleolus. Unable to appreciate any obvious fluctuance on exam. There is some mild erythema noted along the distal fibula. No effusion on the knee, range of motion of the knee with extension and flexion reproduces no pain. He is able to straight leg raise with no difficulty. Logroll maneuver of the lower extremity reproduces no groin pain The calf is soft, there is no tenderness with palpation Patient is very tender with palpation along the Achilles tendon distribution and insertion. He does demonstrate discomfort with palpation to the forefoot and around the medial and lateral malleolus in the areas of soft tissue swelling. He is nontender on the midfoot or forefoot with palpation. Patient is able to plantarflex and dorsiflex, this does reproduce some discomfort in the posterior aspect of the foot/ankle. He is able to wiggle all the toes with minimal difficulty. Sensation to light touch is intact about the extremity. His dorsalis pedis pulses 2+ per Results - Labs Labs: Abnormal Lab Results - Last 24 Hours (Table) 04/11/22 Range/Units 05:36 Chloride 109 H (98-107) mmol/L Calcium 7.9 L (8.4-10.2) mg/dL H & H 04/11/22 Range/Units 05:36 Hgb 13.3 (13.0-17.5) gm/dL Hct 40.5 (39.0-53.0) % Coagulation 04/11/22 Range/Units 05:36 INR 1.0 (<1.2) Result Diagrams: 04/11/22 05:36 04/11/22 05:36 - Diagnostic results Ankle/Foot x-ray: report reviewed, image reviewed (Images of the right ankle were reviewed from 04/09/2022 along with reports. Images demonstrate no acute fractures or dislocations. No evident foreign body noted.) Assessment and Plan Assessment: Right ankle/foot pain Right achilles tendon pain Right lower extremity swelling Plan: I was able to discuss the case, this including both physical exam findings and imaging studies with my attending Dr. Pang. No emergent orthopedic surgical intervention is recommended at this time Further laboratory tests will be ordered, this including uric acid, sed rate and CRP. The patient's white blood cell count is normal, he is afebrile at this time This may represent a inflammatory arthropathy of the ankle versus generalized inflammation along the Achilles tendon. There seems to be a low level of cellulitis present also No obvious fluctuance appreciated on exam it would represent an area of abscess Recommend icing and elevating of the right lower extremity DVT prophylaxis per primary medical service Pain control, utilize Tylenol and anti-inflammatories. Narcotics for severe pain Other medical nurse recommendations Further recommendations to follow, we'll continue to follow patient during inpatient stay Time with Patient: Less than 30
[2022-04-11] MEDS: VANCOMYCIN 1,000 MG in SODIUM CHLORIDE 0.9% 250 ML IVPB SCH ×2 (15:51→22:17)
[2022-04-11] MEDS ORDERED: VANCOMYCIN 1,000 MG in SODIUM CHLORIDE 0.9% 250 ML IVPB SCH (18:00)
[2022-04-11 19:12] LABS: C Reactive Protein 2.4 mg/dL (0.00-0.80); Uric Acid 4.4 mg/dL (3.7-8.7)
--- NOTE | 2022-04-11 23:07 | P.CONS ---
History of Present Illness - Reason for Consult Consult date: 04/11/22 Cellulitis Requesting physician: Héctor E Sheet - Chief Complaint Pain and swelling to the right leg x few days - History of Present Illness Patient is 61-year-old male presenting to the ER for evaluation of pain and swelling involving the right ankle and lower extremity patient mention his symptoms started on Saturday while he was at work however the patient denies any history of any trauma or fall patient did mention that his leg was itching 2 days prior to that and he did have a scratch at the area subsequently developing increasing pain and swelling to the right ankle and lower leg area patient apparently was evaluated on 04/09/2022 and the patient was discharged on oral antibiotics however the patient presented back to the hospital with worsening swelling and redness patient describes the pain to be sharp almost 10 out of 10 in severity and no radiation with associated swelling redness patient currently do not have any open wound or any drainage patient on presentation to the hospital was afebrile patient did have normal white count creatinine has been no rmal liver enzymes are normal patient was started on Rocephin and vancomycin infectious disease was consulted for further management of antibiotic therapy Review of Systems Positive point has been mentioned in the HPI rest of the systems are negative Past Medical History Past Medical History: COPD, Diabetes Mellitus, Deep Vein Thrombosis (DVT), Hyperlipidemia, Mitral Valve Prolapse (MVP), Osteoarthritis (OA) Additional Past Medical History / Comment(s): heart murmur, DVT years ago, chronic back, foot & leg pain, states he's not diabetic, one said he was, one said he wasn't, took metformin in past History of Any Multi-Drug Resistant Organisms: None Reported Past Surgical History: Orthopedic Surgery Additional Past Surgical History / Comment(s): left leg vein surg., right wrist surg. Past Anesthesia/Blood Transfusion Reactions: No Reported Reaction Past Psychological History: Anxiety, Bipolar, Depression Smoking Status: Current every day smoker Past Alcohol Use History: Occasional Additional Past Alcohol Use History / Comment(s): currently trying to quit smoking, 1 cig today, used to drink heavily daily but not really drinking much anymore in past year Past Drug Use History: Marijuana Additional Drug Use History / Comment(s): used 2 days ago - Past Family History Father Family Medical History: No Reported History Mother Family Medical History: Unable to Obtain Brother(s) Family Medical History: No Reported History Sister(s) Family Medical History: No Reported History Medications and Allergies Home Medications Medication Instructions Recorded Confirmed Type Gabapentin 800 mg PO TID 05/18/21 04/11/22 History Calamine/Zinc Oxide Lotion 1 applic TOPICAL QID PRN each 04/17/22 Rx [Calamine Lotion] Cephalexin [Keflex] 500 mg PO QID 10 Days #40 cap 04/17/22 Rx HYDROcodone/APAP 5-325MG [[place] 1 each PO Q6HR PRN #6 tab 04/17/22 Rx 5-325] Allergies Allergy/AdvReac Type Severity Reaction Status Date / Time No Known Allergies Allergy Verified 04/11/22 08:04 Physical Exam Vitals: Vital Signs Temp Pulse Resp BP Pulse Ox 04/11/22 10:39 71 15 139/87 100 04/11/22 06:46 71 16 138/111 100 04/11/22 06:02 65 16 99 04/11/22 05:53 66 16 132/80 99 04/11/22 04:26 98.4 F 70 16 139/86 100 04/11/22 04:17 98 F 78 16 135/96 100 Intake and Output 04/11/22 04/11/22 04/11/22 06:59 14:59 22:59 Other: Weight 61.235 kg 61.235 kg GENERAL DESCRIPTION: Middle-aged male lying in bed, no distress. No tachypnea or accessory muscle of respiration use. HEENT: Shows Pallor , no scleral icterus. Oral mucous membrane is dry. No pharyngeal erythema or thrush NECK: Trachea central, no thyromegaly. LUNGS: Unlabored breathing. Clear to auscultation anteriorly. No wheeze or crackle. HEART: S1, S2, regular rate and rhythm. No loud murmur ABDOMEN: Soft, no tenderness , guarding or rigidity, no organomegaly EXTREMITIES: Right ankle and foot area did have swelling and minimal redness and tender to touch no open wound or any drainage. SKIN: No rash, no masses palpable. NEUROLOGICAL: The patient is awake, alert, oriented x3, mood and affect normal. Results CBC & Chem 7: 04/16/22 04:46 04/17/22 07:57 Labs: Abnormal Lab Results - Last 24 Hours (Table) 04/11/22 Range/Units 05:36 Chloride 109 H (98-107) mmol/L Calcium 7.9 L (8.4-10.2) mg/dL Assessment and Plan (1) Cellulitis of right ankle Status: Acute Code(s): L03.115 - CELLULITIS OF RIGHT LOWER LIMB SNOMED Cod e(s): [id number] Plan: 1patient was in the hospital with right ankle and lower extremity swelling and redness apparently started after the patient has been scratching the area 2 days prior to each with concern for possible cellulitis from gram-positive skin daljit failing outpatient or antibiotic therapy possible burden of disease patient currently with no fever or elevated white count. 2Marked area of the redness. 3continue with the vancomycin pharmacy to dose change Rocephin to 2 g daily. We will follow on clinical condition and cultures to further adjust medication if needed Thank you for this consultation will follow this patient along with you Time with Patient: Greater than 30
[2022-04-12] MEDS: FAMOTIDINE 20 MG/2 ML VIAL IV SCH ×3 (00:18→20:48)
[2022-04-12] MEDS: SODIUM CHLORIDE 0.9% 1,000 ML IV SCH ×3 (04:10→17:45)
[2022-04-12] MEDS: MORPHINE SULFATE 4 MG/ML SYRINGE IV PRN ×2 (06:36→13:49)
[2022-04-12] MEDS: VANCOMYCIN 1,000 MG in SODIUM CHLORIDE 0.9% 250 ML IVPB SCH ×3 (06:40→22:45)
[2022-04-12 07:26] LABS: Basophils % (A) 1 %; Eosinophils # (A) 0.1 k/uL (0-0.7); Eosinophils % (A) 3 %; HCT 37.1 % (39.0-53.0); HGB 12.1 gm/dL (13.0-17.5); Hypochromasia Slight; Lymphocytes # (A) 0.9 k/uL (1.0-4.8); Lymphocytes % (A) 22 %; MCH 29.8 pg (25.0-35.0); MCHC 32.7 g/dL (31.0-37.0); Mean Platelet Volume 8.2; Monocytes # (A) 0.3 k/uL (0-1.0); Monocytes % (A) 7 %; Neutrophils # (A) 2.6 k/uL (1.3-7.7); Neutrophils % (A) 65 %; Platelet Count 160 k/uL (150-450); RBC 4.07 m/uL (4.30-5.90)
[2022-04-12 07:45] LABS: ALT 12 U/L (4-49); AST 19 U/L (17-59); African American GFR (CKD) >90 (>60 ml/min/1.73 sqM); Albumin/Globulin Ratio 1.3; Alkaline Phosphatase 71 U/L (38-126); Anion Gap 5 mmol/L; Blood Urea Nitrogen 12 mg/dL (9-20); C Reactive Protein 3.5 mg/dL (<1.0); Carbon Dioxide 23 mmol/L (22-30); Chloride 111 mmol/L (98-107); Globulin 2.3 g/dL; Glucose 90 mg/dL (74-99); Non-African American GFR(CKD) >90 (>60 ml/min/1.73 sqM); Sodium 139 mmol/L (137-145); Total Bilirubin 0.3 mg/dL (0.2-1.3); Total Protein 5.3 g/dL (6.3-8.2); Uric Acid 4.2 mg/dL (3.5-8.5)
--- NOTE | 2022-04-12 08:17 | P.PN ---
Subjective Progress Note Date: 04/12/22 Principal diagnosis: Right ankle/foot pain and swelling Patient seen and examined at bedside. Patient is resting in bed with right lower extremity elevated on 2 pillows. He states his pain is managed on current regimen. Patient is guarded with palpation to right ankle/achilles area. Encouragement provided to continue with ice and elevation. Patient is currently on antibiotics. He denies any fever/chills, nausea/vomiting, or chest pain. Objective - Vital Signs Vital signs: Vital Signs Temp 98.7 F 04/12/22 02:24 Pulse 79 04/12/22 02:24 Resp 17 04/12/22 02:24 BP 117/70 04/12/22 02:24 Pulse Ox 100 04/12/22 02:24 FiO2 Intake & Output 04/11/22 04/12/22 04/12/22 18:59 06:59 18:59 Intake Total 100 Output Total 300 Balance 100 -300 Weight 61.235 kg Intake: Oral 100 Output: Urine 300 Other: # Voids 2 - Exam Right lower extremity: There are no obvious open lesions or sores present throughout the right lower extremity, this to include knee, lower leg, foot or ankle. There is notable swelling in the forefoot area and also posterior to the medial and lateral malleolus. There is some mild erythema noted along the distal fibula. The calf is soft, there is no tenderness with palpation Patient is very tender with palpation along the Achilles tendon distribution and insertion. He does demonstrate discomfort with palpation to the forefoot and around the medial and lateral malleolus in the areas of soft tissue swelling. He is nontender on the midfoot or forefoot with palpation. Patient is able to plantarflex and dorsiflex, this does reproduce some discomfort in the posterior aspect of the foot/ankle. He is able to wiggle all the toes with minimal difficulty. Sensation to light touch is intact about the extremity. - Labs CBC & Chem 7: 04/12/22 06:20 04/12/22 06:20 Labs: Abnormal Lab Results - Last 24 Hours (Table) 04/11/22 04/12/22 Range/Units 05:36 06:20 RBC 4.07 L (4.30-5.90) m/uL Hgb 12.1 L (13.0-17.5) gm/dL Hct 37.1 L (39.0-53.0) % Lymphocytes # 0.9 L (1.0-4.8) k/uL C-Reactive Protein 2.40 H (0.00-0.80) mg/dL Assessment and Plan Assessment: Right ankle/foot pain Right achilles tendon pain Right lower extremity swelling Plan: -Appreciate data governance consultant and team management. -No emergent orthopedic surgical intervention is recommended at this time. -Recommend icing and elevating of the right lower extremity -DVT prophylaxis per primary medical service -Pain control, utilize Tylenol and anti-inflammatories. Narcotics for severe pain -Other certified medical dosimetrist recommendations -Patient may follow up in office outpatient as needed. *I reviewed and discussed this case with my attending Dr. Pang, whom has r eviewed this chart and films and is in agreement with assessment and plan of care as outlined above. I have personally seen and examined the patient, performed the documentation and the assessment and plan as written. Number of minutes spent on the visit: 15m.
[2022-04-12] MEDS: HEPARIN SODIUM,PORCINE/PF 5,000 UNIT/0.5 ML SYRINGE SQ SCH ×2 (08:32→20:48)
[2022-04-12] MEDS: NICOTINE 14MG/24HR PATCH TRANSDERM SCH (08:32)
[2022-04-12 09:40] LABS: Erythrocyte Sedimentation Rate 8 mm/hr (0-15)
[2022-04-12] MEDS: HYDROcodone/APAP 5-325MG 1 EACH TAB PO PRN ×2 (10:15→20:48)
--- NOTE | 2022-04-12 13:04 | P.PN ---
Subjective This is a pleasant 61 years old male with multiple medical problems as below presents because of right foot and ankle pain and swelling of 2 days' duration as he states. patient came to emergency room two days ago for the same complaint , he had ri ght foot xray showing no fracture or dislocation , He was discharged on Keflex for cellulitis, patient presents with similar complaint of right foot/right ankle swelling and warmth and tenderness jeronimo picious for cellulitis versus osteomyelitis. Patient denies any other symptoms, no chest pain or dyspnea, no abdominal pain and vomiting no diarrhea, no urinary complaints, no headache dizziness weakness or numbness He admits to smoking cigarettes and was counseled and agrees to the nicotine patch, he states that he smokes 3-4 cigarettes a day. Also he drinks alcohol occasionally but he denies any illicit drugs Vital signs stable and patient is afebrile Labs looked normal including CBC, INR, BMP and liver enzymes EKG showing stricture rhythm at [address]-T changes Emergency room patient was started on ceftriaxone and IV vancomycin 04/12/2022 Patient is still complaining of from right foot ankle and distal one third leg pain and tenderness, the area looks red and swollen tender and warm to touch. Patient has limitation of movement. However patient with no fever or leukocytosis. His pro-calcitonin is normal. X-ray of his right ankle 3 days ago showing no acute abnormality. Because of his persistent significant symptoms are going to repeat x-ray and we'll order ultrasound of the right leg to rule out DVT Orthopedic and infectious disease team on the case. Cellulitis is still been suspected and patient is been covered with ceftriaxone and IV vancomycin. We are going to consult rheumatology service to rule out rheumatological diseases now. Objective - Vital Signs Vital signs: Vital Signs Temp 98.5 F 04/12/22 08:00 Pulse 71 04/12/22 08:00 Resp 16 04/12/22 08:00 BP 151/81 04/12/22 08:00 Pulse Ox 98 04/12/22 08:57 FiO2 Intake & Output 04/11/22 04/12/22 04/12/22 18:59 06:59 18:59 Intake Total 100 Output Total 300 Balance 100 -300 Weight 61.235 kg Intake: Oral 100 Output: Urine 300 Other: Voiding Method Urinal # Voids 2 - Exam GENERAL: The patient is alert and oriented x3, not in any acute distress. Well developed, well nourished. HEENT: Pupils are round and equally reacting to light. EOMI. No scleral icterus. No conjunctival pallor. Normocephalic, atraumatic. No pharyngeal erythema. No thyromegaly. CARDIOVASCULAR: S1 and S2 present. No murmurs, rubs, or gallops. PULMONARY: Chest is clear to auscultation, no wheezing or crackles. ABDOMEN: Soft, nontender, nondistended, normoactive bowel sounds. No palpable organomegaly. MUSCULOSKELETAL: No joint swelling or deformity. -EXTREMITIES: No cyanosis, clubbing, or pedal edema. right ankle and foot are significantly swollen, red up to the distal third of the right leg and tender (area demarcated today) NEUROLOGICAL: Gross neurological examination did not reveal any focal deficits. SKIN: No rashes. no petechiae. - Labs CBC & Chem 7: 04/12/22 06:20 04/12/22 06:20 Labs: Abnormal Lab Results - Last 24 Hours (Table) 04/11/22 04/12/22 04/12/22 Range/Units 05:36 06:20 06:20 RBC 4.07 L (4.30-5.90) m/uL Hgb 12.1 L (13.0-17.5) gm/dL Hct 37.1 L (39.0-53.0) % Lymphocytes # 0.9 L (1.0-4.8) k/uL Chloride 111 H (98-107) mmol/L Calcium 8.0 L (8.4-10.2) mg/dL C-Reactive Protein 2.40 H 3.5 H (0.00-0.80) mg/dL Total Protein 5.3 L (6.3-8.2) g/dL Albumin 3.0 L (3.5-5.0) g/dL Microbiology - Last 24 Hours (Table) 04/11/22 05:45 Blood Culture - Preliminary Blood No Growth after 24 hours 04/11/22 05:30 Blood Culture - Preliminary Blood No Growth after 24 hours Assessment and Plan Assessment: Right foot/ankle Cellulitis versus arthritis, failed outpatient treatment. Nicotine dependence Diabetes mellitus Hypertension Hyperlipidemia COPD, no acute exacerbation History of deep venous thrombosis History of mitral valve prolapse History of osteoarthritis History of anxiety, depression, not an active issue Plan: Continue with antibiotics, currently on IV vancomycin and ceftriaxone Infectious disease consult Follow-up culture results We will consult orthopedic team to We will consult dermatology Check ultrasound of the leg to rule out DVT and repeat x-ray of the right foot Labs and medication were reviewed.. Continue same treatment. Continue with symptomatic treatment. Resume home medication. Monitor labs and vitals. DVT and GI prophylaxis. Further recommendations as per clinical course of the patient DVT prophylaxis: Subcutaneous heparin GI Prophylaxis: Pepcid PT/OT: Pending, currently deferred Prognosis is guarded
[2022-04-12] MEDS ORDERED: VANCOMYCIN TROUGH DUE 1 EACH MISC MISCELLANE ONE (14:00)
[2022-04-12 14:07] VITALS: BMI 18.4
--- NOTE | 2022-04-12 15:52 | US ---
EXAMINATION TYPE: US venous doppler duplex LE RT DATE OF EXAM: 04/12/2022 3:35 PM COMPARISON: NONE CLINICAL HISTORY: Right leg painful and swollen. patient has pimple like sores on right groin, otherw ise no h/o dvt SIDE PERFORMED: Right TECHNIQUE: The lower extremity deep venous system is examined utilizing real time linear array sonog jalyn with graded compression, doppler sonography and color-flow sonography. VESSELS IMAGED: Common Femoral Vein Deep Femoral Vein Greater Saphenous Vein * Femoral Vein Popliteal Vein Small Saphenous Vein * Proximal Calf Veins (* superficial vessels) Right Leg: Negative for DVT 1.5 x 1.1 x 0.7cm at pimple like area was superficial complex collecti on with vascularity IMPRESSION: No evidence for DVT.
--- NOTE | 2022-04-12 16:40 | XR ---
EXAMINATION TYPE: XR foot complete RT DATE OF EXAM: 04/12/2022 4:20 PM INDICATION: Patient age:Male; 61 years old; Reason for study: Pain and swelling of the right and ankle; COMPARISON: None TECHNIQUE: The right foot was examined in the AP, oblique, and lateral projections. FINDINGS: No evidence of any acute osseous pathology. No evidence of soft tissue swelling. Joints are preserve d. IMPRESSION: No evidence of acute fracture.
[2022-04-13] MEDS ORDERED: diphenhydrAMINE 25 MG CAP PO PRN (01:48)
[2022-04-13] MEDS: MORPHINE SULFATE 4 MG/ML SYRINGE IV PRN ×3 (03:08→21:02)
[2022-04-13] MEDS: VANCOMYCIN 1,000 MG in SODIUM CHLORIDE 0.9% 250 ML IVPB SCH ×3 (06:15→23:28)
[2022-04-13] MEDS: SODIUM CHLORIDE 0.9% 1,000 ML IV SCH ×2 (06:15→23:29)
--- NOTE | 2022-04-13 08:51 | P.PN ---
Subjective Progress Note Date: 04/13/22 Principal diagnosis: Right ankle/foot pain and swelling Patient seen and examined at bedside. Patient is resting comfortably in bed with right lower extremity elevated on 2 pillows. Continue with ice and elevation. Patient is currently on antibiotics. Patient has been afebrile with no c/o nausea/vomiting, or chest pain. Objective - Vital Signs Vital signs: Vital Signs Temp 97.7 F 04/13/22 02:00 Pulse 73 04/13/22 02:00 Resp 16 04/13/22 02:00 BP 152/82 04/13/22 02:00 Pulse Ox 97 04/13/22 02:00 FiO2 Intake & Output 04/12/22 04/13/22 04/13/22 18:59 06:59 18:59 Output Total 1300 1600 Balance -1300 -1600 Weight 63.5 kg Output: Urine 1300 1600 Other: Voiding Method Urinal Urinal - Exam Right lower extremity: There are no obvious open lesions or sores present throughout the right lower extremity, this to include knee, lower leg, foot or ankle. There is notable swelling in the forefoot area and also posterior to the medial and lateral malleolus. There is some mild erythema noted along the distal fibula. The calf is soft, there is no tenderness with palpation Patient is very tender with palpation along the Achilles tendon distribution and insertion. He does demonstrate discomfort with palpation to the forefoot and around the medial and lateral malleolus in the areas of soft tissue swelling. He is nontender on the midfoot or forefoot with palpation. Patient is able to plantarflex and dorsiflex, this does reproduce some discomfort in the posterior aspect of the foot/ankle. He is able to wiggle all the toes with minimal difficulty. Sensation to light touch is intact about the extremity. - Labs CBC & Chem 7: 04/12/22 06:20 04/12/22 06:20 Labs: Microbiology - Last 24 Hours (Table) 04/11/22 05:30 Blood Culture - Preliminary Blood No Growth after 48 hours 04/11/22 05:45 Blood Culture - Preliminary Blood No Growth after 48 hours Assessment and Plan Assessment: Right ankle/foot pain Right achilles tendon pain Right lower extremity swelling Plan: -Appreciate regional engagement consultant and team management. -No emergent orthopedic surgical intervention is recommended at this time. -Recommend icing and elevating of the right lower extremity -DVT prophylaxis per primary medical service -Continue with pain management -Other medical assistant float recommendations Our services are signing off at this time. Please feel free to reach out for any questions or concerns. Patient may follow up in office outpatient as needed. *I reviewed and discussed this case with my attending Dr. Pang, whom has reviewed this chart and films and is in agreement with assessment and plan of care as outlined above. I have personally seen and examined the patient, performed the documentation and the assessment and plan as written. Number of minutes spent on the visit: 15m.
[2022-04-13] MEDS: HYDROcodone/APAP 5-325MG 1 EACH TAB PO PRN ×2 (08:57→17:30)
[2022-04-13] MEDS: FAMOTIDINE 20 MG/2 ML VIAL IV SCH ×2 (08:58→21:01)
[2022-04-13] MEDS: HEPARIN SODIUM,PORCINE/PF 5,000 UNIT/0.5 ML SYRINGE SQ SCH ×2 (08:58→21:02)
[2022-04-13] MEDS: NICOTINE 14MG/24HR PATCH TRANSDERM SCH (08:58)
[2022-04-13 11:33] LABS: African American GFR (CKD) >90 (>60 ml/min/1.73 sqM); Anion Gap 7 mmol/L; Blood Urea Nitrogen 12 mg/dL (9-20); Calcium 8.3 mg/dL (8.4-10.2); Carbon Dioxide 25 mmol/L (22-30); Chloride 106 mmol/L (98-107); Glucose 109 mg/dL (74-99); Non-African American GFR(CKD) >90 (>60 ml/min/1.73 sqM); Potassium 3.7 mmol/L (3.5-5.1); Sodium 138 mmol/L (137-145)
[2022-04-13 12:02] LABS: Basophils % (A) 1 %; Eosinophils # (A) 0.1 k/uL (0-0.7); Eosinophils % (A) 1 %; HCT 37.9 % (39.0-53.0); HGB 12.5 gm/dL (13.0-17.5); Lymphocytes # (A) 0.9 k/uL (1.0-4.8); Lymphocytes % (A) 13 %; MCH 29.5 pg (25.0-35.0); MCV 89.6 fL (80.0-100.0); Mean Platelet Volume 8.5; Monocytes # (A) 0.6 k/uL (0-1.0); Monocytes % (A) 10 %; Neutrophils # (A) 4.7 k/uL (1.3-7.7); Neutrophils % (A) 74 %; Platelet Count 189 k/uL (150-450); RBC 4.24 m/uL (4.30-5.90); RDW 12.9 % (11.5-15.5); WBC 6.4 k/uL (3.8-10.6)
--- NOTE | 2022-04-13 20:40 | P.PN ---
Subjective Progress Note Date: 04/13/22 61 years old male with multiple medical problems as below presents because of right foot and ankle pain and swelling of 2 days' duration as he states. patient came to emergency room two days ago for the same complaint , he had right foot xray showing no fracture or dislocation , He was discharged on Keflex for cellulitis, patient presents with similar complaint of right foot/right ankle swelling and warmth and tenderness suspicious for cellulitis versus osteomyelitis. Patient denies any other symptoms, no chest pain or dyspnea, no abdominal pain and vomiting no diarrhea, no urinary complaints, no headache dizziness weakness or numbness He admits to smoking cigarettes and was counseled and agrees to the nicotine patch, he states that he smokes 3-4 cigarettes a day. Also he drinks alcohol occasionally but he denies any illicit drugs Vital signs stable and patient is afebrile Labs looked normal including CBC, INR, BMP and liver enzymes EKG showing stricture rhythm at [address]-T changes Emergency room patient was started on ceftriaxone and IV vancomycin Objective - Vital Signs Vital signs: Vital Signs Temp 99.7 F H 04/13/22 08:00 Pulse 76 04/13/22 08:00 Resp 17 04/13/22 08:00 BP 142/89 04/13/22 08:00 Pulse Ox 100 04/13/22 11:20 FiO2 Intake & Output 04/12/22 04/13/22 04/13/22 18:59 06:59 18:59 Output Total 1300 1600 Balance -1300 -1600 Weight 63.5 kg Output: Urine 1300 1600 Other: Voiding Method Urinal Urinal Urinal - Exam GENERAL: The patient is alert and oriented x3, not in any acute distress. Well developed, well nourished. HEENT: Pupils are round and equally reacting to light. EOMI. No scleral icterus. No conjunctival pallor. Normocephalic, atraumatic. No pharyngeal erythema. No thyromegaly. CARDIOVASCULAR: S1 and S2 present. No murmurs, rubs, or gallops. PULMONARY: Chest is clear to auscultation, no wheezing or crackles. ABDOMEN: Soft, nontender, nondistended, normoactive bowel sounds. No palpable organomegaly. MUSCULOSKELETAL: No joint swelling or deformity. -EXTREMITIES: No cyanosis, clubbing, or pedal edema. right ankle and foot are significantly swollen, red up to the distal third of the right leg and tender (area demarcated today) NEUROLOGICAL: Gross neurological examination did not reveal any focal deficits. SKIN: No rashes. no petechiae. - Labs CBC & Chem 7: 04/13/22 10:13 04/13/22 10:13 Labs: Abnormal Lab Results - Last 24 Hours (Table) 04/13/22 04/13/22 Range/Units 10:13 10:13 RBC 4.24 L (4.30-5.90) m/uL Hgb 12.5 L (13.0-17.5) gm/dL Hct 37.9 L (39.0-53.0) % Lymphocytes # 0.9 L (1.0-4.8) k/uL Glucose 109 H (74-99) mg/dL Calcium 8.3 L (8.4-10.2) mg/dL Microbiology - Last 24 Hours (Table) 04/11/22 05:30 Blood Culture - Preliminary Blood No Growth after 48 hours 04/11/22 05:45 Blood Culture - Preliminary Blood No Growth after 48 hours Assessment and Plan Assessment: Right foot/ankle Cellulitis versus arthritis, failed outpatient treatment. Nicotine dependence Diabetes mellitus Hypertension Hyperlipidemia COPD, no acute exacerbation History of deep venous thrombosis History of mitral valve prolapse History of osteoarthritis History of anxiety, depression, not an active issue Plan: Continue with antibiotics, currently on IV vancomycin and ceftriaxone Infectious disease consult Follow-up culture results We will consult orthopedic team to We will consult dermatology Check ultrasound of the leg to rule out DVT and repeat x-ray of the right foot Labs and medication were reviewed.. Continue same treatment. Continue with symptomatic treatment. Resume home medication. Monitor labs and vitals. DVT and GI prophylaxis. Further recommendations as per clinical course of the patient DVT prophylaxis: Subcutaneous heparin GI Prophylaxis: Pepcid PT/OT: Pending, currently deferred Prognosis is guarded
--- NOTE | 2022-04-14 00:09 | P.PN ---
Subjective Progress Note Date: 04/12/22 Principal diagnosis: Right ankle and leg cellulitis Patient is 61-year-old male presenting to the ER for evaluation of pain and swelling involving the right ankle and lower extremity patient mention his symptoms started on Saturday while he was at work however the patient denies any history of any trauma or fall patient did mention that his leg was itching 2 days prior to that and he did have a scratch at the area subsequently developing increasing pain and swelling to the right ankle and lower leg area on today's evaluation that is 04/12/2022, the patient denies having any fever or any chills still complaining of significant pain to the right lower leg and ankle area currently with no open wound or any drainage no chest pain shortness of breath or cough no abdominal pain no diarrhea Objective - Vital Signs Vital signs: Vital Signs Temp 98.5 F 04/12/22 08:00 Pulse 71 04/12/22 08:00 Resp 16 04/12/22 08:00 BP 151/81 04/12/22 08:00 Pulse Ox 98 04/12/22 08:57 FiO2 Intake & Output 04/11/22 04/12/22 04/12/22 18:59 06:59 18:59 Intake Total 100 Output Total 300 Balance 100 -300 Weight 61.235 kg 63.5 kg Intake: Oral 100 Output: Urine 300 Other: Voiding Method Urinal # Voids 2 - Exam GENERAL DESCRIPTION: A middle-age male lying in bed in no distress RESPIRATORY SYSTEM: Unlabored breathing , decreased breath sounds at bases HEART: S1 S2 regular rate and rhythm , ABDOMEN: Soft , no tenderness EXTREMITIES: Right lower extremity redness slightly decreased still has swelling to the ankle area - Labs CBC & Chem 7: 04/13/22 10:13 04/13/22 10:13 Labs: Abnormal Lab Results - Last 24 Hours (Table) 04/11/22 04/12/22 04/12/22 Range/Units 05:36 06:20 06:20 RBC 4.07 L (4.30-5.90) m/uL Hgb 12.1 L (13.0-17.5) gm/dL Hct 37.1 L (39.0-53.0) % Lymphocytes # 0.9 L (1.0-4.8) k/uL Chloride 111 H (98-107) mmol/L Calcium 8.0 L (8.4-10.2) mg/dL C-Reactive Protein 2.40 H 3.5 H (0.00-0.80) mg/dL Total Protein 5.3 L (6.3-8.2) g/dL Albumin 3.0 L (3.5-5.0) g/dL Microbiology - Last 24 Hours (Table) 04/11/22 05:45 Blood Culture - Preliminary Blood No Growth after 24 hours 04/11/22 05:30 Blood Culture - Preliminary Blood No Growth after 24 hours Assessment and Plan (1) Cellulitis of right leg Current Visit: Yes Status: Acute Code(s): L03.115 - CELLULITIS OF RIGHT LOWER LIMB SNOMED Code(s): 235640053 Plan: 1patient was in the hospital with right ankle and lower extremity swelling and redness apparently started after the patient has been scratching the area 2 days prior to each with concern for possible cellulitis from gram-positive skin daljit failing outpatient or antibiotic therapy possible burden of disease patient currently with no fever or elevated white count. 2patient seemed to have shown some clinical improvement and continue with the vancomycin pharmacy to dose along with Rocephin to 2 g daily. Time with Patient: Less than 30
--- NOTE | 2022-04-14 00:10 | P.PN ---
Subjective Progress Note Date: 04/13/22 Principal diagnosis: Right ankle and leg cellulitis Patient is 61-year-old male presenting to the ER for evaluation of pain and swelling involving the right ankle and lower extremity patient mention his symptoms started on Saturday while he was at work however the patient denies any history of any trauma or fall patient did mention that his leg was itching 2 days prior to that and he did have a scratch at the area subsequently developing increasing pain and swelling to the right ankle and lower leg area on today's evaluation that is 04/13/2022, the patient remains to be afebrile, the patient is still complaining of pain to the right lower leg and ankle area however slightly decreased in intensity, the patient denies chest pain shortness of breath or cough no abdominal pain no diarrhea Objective - Vital Signs Vital signs: Vital Signs Temp 99.7 F H 04/13/22 08:00 Pulse 76 04/13/22 08:00 Resp 17 04/13/22 08:00 BP 142/89 04/13/22 08:00 Pulse Ox 100 04/13/22 11:20 FiO2 Intake & Output 04/12/22 04/13/22 04/13/22 18:59 06:59 18:59 Output Total 1300 1600 Balance -1300 -1600 Weight 63.5 kg Output: Urine 1300 1600 Other: Voiding Method Urinal Urinal Urinal - Exam GENERAL DESCRIPTION: A middle-age male lying in bed in no distress RESPIRATORY SYSTEM: Unlabored breathing , decreased breath sounds at bases HEART: S1 S2 regular rate and rhythm , ABDOMEN: Soft , no tenderness EXTREMITIES: Right lower extremity redness slightly decreased still has swelling to the ankle area - Labs CBC & Chem 7: 04/13/22 10:13 04/13/22 10:13 Labs: Abnormal Lab Results - Last 24 Hours (Table) 04/13/22 04/13/22 Range/Units 10:13 10:13 RBC 4.24 L (4.30-5.90) m/uL Hgb 12.5 L (13.0-17.5) gm/dL Hct 37.9 L (39.0-53.0) % Lymphocytes # 0.9 L (1.0-4.8) k/uL Glucose 109 H (74-99) mg/dL Calcium 8.3 L (8.4-10.2) mg/dL Microbiology - Last 24 Hours (Table) 04/11/22 05:30 Blood Culture - Preliminary Blood No Growth after 48 hours 04/11/22 05:45 Blood Culture - Preliminary Blood No Growth after 48 hours Assessment and Plan (1) Cellulitis of right leg Current Visit: Yes Status: Acute Code(s): L03.115 - CELLULITIS OF RIGHT LOWER LIMB SNOMED Code(s): 963123823 Plan: 1patient was in the hospital with right ankle and lower extremity swelling and redness apparently started after the patient has been scratching the area 2 days prior to each with concern for possible cellulitis from gram-positive skin daljit failing outpatient or antibiotic therapy possible burden of disease patient currently with no fever or elevated white count. 2patient seemed to have shown some clinical improvement and continue with the vancomycin pharmacy to dose along with Rocephin to 2 g daily. 3patient has been evaluated by rheumatology MRI of the ankle has been ordered results will be followed if any evidence of joint effusion the patient will benefit from aspirate of the fluid for culture Time with Patient: Less than 30
[2022-04-14] MEDS: HYDROcodone/APAP 5-325MG 1 EACH TAB PO PRN ×2 (02:28→23:10)
--- NOTE | 2022-04-14 03:49 | MR ---
EXAMINATION TYPE: MR ankle/foot RT wo/w con DATE OF EXAM: 04/13/2022 COMPARISON: HISTORY: Pain and swelling of the right foot and ankle. CONTRAST: Standard multiplanar, multisequence MRI departmental protocol images were obtained without contrast a nd with 6 mL intravenous Gadavist gadolinium contrast. Achilles tendon is intact. Plantar fascia appears intact. There is a mild ankle joint effusion and lundberg btalar joint effusion. The medial and lateral flexor tendons of the ankle appear intact. The metatarsals are intact. The toes are intact. There are no erosions. No evidence for soft tissue m ass. There is subcutaneous edema around the hindfoot. The tarsal bones are intact. No focal bone dest ruction. There is no pathologic enhancement. IMPRESSION: There is subcutaneous edema around the hindfoot and midfoot. Mild ankle joint effusion and subtalar e ffusion. No evidence of ligamentous tear. No fracture seen.
[2022-04-14] MEDS: NICOTINE 14MG/24HR PATCH TRANSDERM SCH (04:32)
[2022-04-14] MEDS: VANCOMYCIN 1,000 MG in SODIUM CHLORIDE 0.9% 250 ML IVPB SCH ×4 (06:08→23:03)
[2022-04-14] MEDS: SODIUM CHLORIDE 0.9% 1,000 ML IV SCH ×2 (09:09→21:28)
[2022-04-14] MEDS: HEPARIN SODIUM,PORCINE/PF 5,000 UNIT/0.5 ML SYRINGE SQ SCH ×4 (09:15→21:31)
[2022-04-14] MEDS: FAMOTIDINE 20 MG/2 ML VIAL IV SCH ×2 (09:15→21:27)
[2022-04-14 11:30] LABS: Basophils # (A) 0.03 X 10*3/uL (0.00-0.10); Basophils % (A) 0.5 %; Eosinophils # (A) 0.09 X 10*3/uL (0.04-0.35); Eosinophils % (A) 1.6 %; HCT 40.3 % (39.6-50.0); HGB 12.8 g/dL (13.0-17.0); Immature Grans, Automated 0.2 %; Lymphocytes # (A) 1.08 X 10*3/uL (0.90-5.00); MCH 28.8 pg (27.0-32.0); MCHC 31.8 g/dL (32.0-37.0); MCV 90.6 fL (80.0-97.0); Mean Platelet Volume 10.8 fL (9.5-12.2); Monocytes % (A) 15.9 %; NRBC Per 100 WBC 0 /100 WBCS (0.0-0.0); Neutrophils # (A) 3.56 X 10*3/uL (1.80-7.70); Neutrophils % (A) 62.8 %; Platelet Count 192 X 10*3/uL (140-440); RBC 4.45 X 10*6/uL (4.40-5.60); WBC 5.67 X 10*3/uL (4.50-10.00)
[2022-04-14 12:45] LABS: African American GFR (CKD) 111.5 (60.0-200.0); Anion Gap 11.7 mmol/L (10.00-18.00); BUN/Creat Ratio 16.99 Ratio (12.00-20.00); Blood Urea Nitrogen 13.9 mg/dL (9.0-27.0); Calcium 8.6 mg/dL (8.7-10.3); Carbon Dioxide 25.2 mmol/L (20.0-27.5); Non-African American GFR(CKD) 96.2 (60.0-200.0); Potassium 4.2 mmol/L (3.5-5.5)
[2022-04-14] MEDS ORDERED: VANCOMYCIN TROUGH DUE 1 EACH MISC MISCELLANE ONE (14:00)
--- NOTE | 2022-04-14 18:34 | P.PN ---
Subjective Progress Note Date: 04/14/22 Principal diagnosis: Cellulitis right leg and ankle 61 years old male with multiple medical problems as below presents because of right foot and ankle pain and swelling of 2 days' duration as he states. patient came to emergency room two days ago for the same complaint , he had right foot xray showing no fracture or dislocation , He was discharged on Keflex for cellulitis, patient presents with similar complaint of right foot/right ankle swelling and warmth and tenderness suspicious for cellulitis versus osteomyelitis. Patient denies any other symptoms, no chest pain or dyspnea, no abdominal pain and vomiting no diarrhea, no urinary complaints, no headache dizziness weakness or numbness He admits to smoking cigarettes and was counseled and agrees to the nicotine patch, he states that he smokes 3-4 cigarettes a day. Also he drinks alcohol o ccasionally but he denies any illicit drugs Vital signs stable and patient is afebrile Labs looked normal including CBC, INR, BMP and liver enzymes EKG showing stricture rhythm at [address]-T changes Emergency room patient was started on ceftriaxone and IV vancomycin 04/14/2022 Patient is seen and evaluated in room at bedside; denies any specific complaints patient was in the hospital with right ankle and lower extremity swelling and redness apparently started after the patient has been scratching the area 2 days prior to each with concern for possible cellulitis from gram-positive skin daljit failing outpatient or antibiotic therapy possible burden of disease patient currently with no fever or elevated white count. patient seemed to have shown some clinical improvement and continue with the vancomycin pharmacy to dose along with Rocephin to 2 g daily. patient has been evaluated by rheumatology MRI of the ankle has been ordered results will be followed if any evidence of joint effusion the patient will benefit from aspirate of the fluid for culture Objective - Vital Signs Vital signs: Vital Signs Temp 98.8 F 04/14/22 09:10 Pulse 71 04/14/22 09:10 Resp 17 04/14/22 09:10 BP 145/82 04/14/22 09:10 Pulse Ox 100 04/14/22 09:10 FiO2 Intake & Output 04/13/22 04/14/22 04/14/22 18:59 06:59 18:59 Output Total 1000 700 850 Balance -1000 -700 -850 Output: Urine 1000 700 850 Other: Voiding Method Urinal - Exam GENERAL: The patient is alert and oriented x3, not in any acute distress. Well developed, well nourished. HEENT: Pupils are round and equally reacting to light. EOMI. No scleral icterus. No conjunctival pallor. Normocephalic, atraumatic. No pharyngeal erythema. No thyromegaly. CARDIOVASCULAR: S1 and S2 present. No murmurs, rubs, or gallops. PULMONARY: Chest is clear to auscultation, no wheezing or crackles. ABDOMEN: Soft, nontender, nondistended, normoactive bowel sounds. No palpable organomegaly. MUSCULOSKELETAL: No joint swelling or deformity. -EXTREMITIES: No cyanosis, clubbing, or pedal edema. right ankle and foot are significantly swollen, red up to the distal third of the right leg and tender (area demarcated today) NEUROLOGICAL: Gross neurological examination did not reveal any focal deficits. SKIN: No rashes. no petechiae. - Labs CBC & Chem 7: 04/14/22 06:41 04/14/22 06:41 Labs: Abnormal Lab Results - Last 24 Hours (Table) 04/14/22 04/14/22 Range/Units 06:41 06:41 Hgb 12.8 L (13.0-17.0) g/dL MCHC 31.8 L (32.0-37.0) g/dL Calcium 8.6 L (8.7-10.3) mg/dL Microbiology - Last 24 Hours (Table) 04/13/22 18:45 Anaerobic Culture - Preliminary Thigh - Right 04/13/22 18:45 Wound Culture - Preliminary Thigh - Right 04/11/22 05:45 Blood Culture - Preliminary Blood No Growth after 72 hours 04/11/22 05:30 Blood Culture - Preliminary Blood No Growth after 72 hours Assessment and Plan Assessment: Right foot/ankle Cellulitis versus arthritis, failed outpatient treatment. Nicotine dependence Diabetes mellitus Hypertension Hyperlipidemia COPD, no acute exacerbation History of deep venous thrombosis History of mitral valve prolapse History of osteoarthritis History of anxiety, depression, not an active issue Plan: Continue with antibiotics, currently on IV vancomycin and ceftriaxone Infectious disease consult Follow-up culture results We will consult orthopedic team to We will consult dermatology Check ultrasound of the leg to rule out DVT and repeat x-ray of the right foot Labs and medication were reviewed.. Continue same treatment. Continue with symptomatic treatment. Resume home medication. Monitor labs and vitals. DVT and GI prophylaxis. Further recommendations as per clinical course of the patient DVT prophylaxis: Subcutaneous heparin GI Prophylaxis: Pepcid PT/OT: Pending, currently deferred Prognosis is guarded
[2022-04-15] MEDS: NICOTINE 14MG/24HR PATCH TRANSDERM SCH (06:25)
[2022-04-15] MEDS: VANCOMYCIN 1,000 MG in SODIUM CHLORIDE 0.9% 250 ML IVPB SCH ×2 (07:39→14:36)
[2022-04-15] MEDS: HEPARIN SODIUM,PORCINE/PF 5,000 UNIT/0.5 ML SYRINGE SQ SCH ×2 (07:44→22:01)
[2022-04-15] MEDS: HYDROcodone/APAP 5-325MG 1 EACH TAB PO PRN ×3 (07:44→22:00)
[2022-04-15] MEDS: FAMOTIDINE 20 MG/2 ML VIAL IV SCH ×2 (07:45→22:01)
[2022-04-15] MEDS: MORPHINE SULFATE 4 MG/ML SYRINGE IV PRN (10:10)
--- NOTE | 2022-04-15 14:18 | P.CONS ---
History of Present Illness - Reason for Consult Consult date: 04/13/22 Rt Foot/ankle pain, swelling - History of Present Illness This is a 61-year-old -[place] male presented to [facility] for evaluation of sudden onset Rt ankle and foot pain that started 04/08 and he presented to ER on 04/09 because he was unable to bear any weight on his foot, Xray done in ER was normal and was diagnosed as cellulitis and sent home on Keflex. He returned on 04/11 with no relief and was admitted for further workup for possible osteomyelitis/septic arthritis. He was started on IV vanco and Ceftriaxone and seen by Dr Brunson for infectious disease and he continued the IV ntibiotics . Dr. Pang was consulted for orthopedic and he did not feel any emergent orthopedic intervention was indicated at this time. Orthopedics felt that this could be an inflammatory arthropathy of the ankle or achilles tendinitis. Venous Doppler ruled out a DVT. when patient did not respond dramatically to antibiotics rheumatology wsa consulted to rule out possible autoimmune inflammatory arthritis. On further questioning, patient denied any previous episodes like this, No h/o gout. He has a tender area in his right groin that he noticed after his foot and ankle started hurting. He denies being sexually active and he denies any dysuria or recent infections or illnesses. Labs from 04/12/22 showed fairly normal CBC with differential with slightly low hemoglobin of 12.1 and lymphopenia, CMP fairly normal, uric acid was 4.4, CRP high at 3.5, sedimentation rate 8 Review of Systems Constitutional: Denies chills, Denies fever Eyes: denies blurred vision, denies pain Ears, nose, mouth and throat: Denies headache, Denies sore throat Cardiovascular: Denies chest pain, Denies shortness of breath Respiratory: Denies cough Gastrointestinal: Denies abdominal pain, Denies diarrhea, Denies nausea, Denies vomiting Musculoskeletal: right: ankle pain, ankle stiffness, ankle swelling, as per HPI, foot pain, foot stiffness, foot swelling Integumentary: Reports boils (RT GROIN) Neurological: Denies numbness, Denies weakness Psychiatric: Denies anxiety, Denies depression Endocrine: Denies fatigue, Denies weight change Hematologic/Lymphatic: Reports lymphadenopathy (?RT GROIN) Past Medical History Past Medical History: COPD, Diabetes Mellitus, Deep Vein Thrombosis (DVT), Hyperlipidemia, Mitral Valve Prolapse (MVP), Osteoarthritis (OA) Additional Past Medical History / Comment(s): heart murmur, DVT years ago, chronic back, foot & leg pain, states he's not diabetic, one said he was, one said he wasn't, took metformin in past History of Any Multi-Drug Resistant Organisms: None Reported Past Surgical History: Orthopedic Surgery Additional Past Surgical History / Comment(s): left leg vein surg., right wrist surg. Past Anesthesia/Blood Transfusion Reactions: No Reported Reaction Past Psychological History: Anxiety, Bipolar, Depression Smoking Status: Current every day smoker Past Alcohol Use History: Occasional Additional Past Alcohol Use History / Comment(s): currently trying to quit sm oking, 1 cig today, used to drink heavily daily but not really drinking much anymore in past year Past Drug Use History: Marijuana Additional Drug Use History / Comment(s): used 2 days ago - Past Family History Father Family Medical History: No Reported History Mother Family Medical History: Unable to Obtain Brother(s) Family Medical History: No Reported History Sister(s) Family Medical History: No Reported History Medications and Allergies Home Medications Medication Instructions Recorded Confirmed Type Gabapentin 800 mg PO TID 05/18/21 04/11/22 History Cephalexin [Keflex] 500 mg PO QID 04/11/22 04/11/22 History Allergies Allergy/AdvReac Type Severity Reaction Status Date / Time No Known Allergies Allergy Verified 04/11/22 08:04 Physical Exam Vitals: Vital Signs Temp Pulse Resp BP Pulse Ox 04/15/22 08:00 98.6 F 78 17 125/76 97 04/15/22 00:58 98.9 F 83 18 148/80 98 04/14/22 20:00 98.9 F 80 16 142/89 98 04/14/22 14:00 98.8 F 78 16 135/94 98 Intake and Output 04/14/22 04/15/22 04/15/22 22:59 06:59 14:59 Output Total 500 400 700 Balance -500 -400 -700 Output: Urine 500 400 700 - Constitutional General appearance: no acute distress - EENT Eyes: EOMI - Neck Neck: no lymphadenopathy - Respiratory Respiratory: bilateral: CTA - Cardiovascular Rhythm: regular Heart sounds: normal: S1, S2 ankle Peripheral Edema: right: Trace dorsalis pedis Peripheral Pulses: right: Normal - Gastrointestinal General gastrointestinal: no organomegaly, soft, no tenderness - Integumentary Integumentary: ulcer (INDURATED TENDER AREA RT GROIN ) - Neurologic Neurologic: CNII-XII intact - Musculoskeletal CANNOT BEAR WEIGHT ON RT FOOT - Psychiatric Psychiatric: A&O x's 3, appropriate affect, intact judgment & insight Results CBC & Chem 7: 04/14/22 06:41 04/14/22 06:41 Labs: Microbiology - Last 24 Hours (Table) 04/11/22 05:30 Blood Culture - Preliminary Blood No Growth after 96 hours 04/11/22 05:45 Blood Culture - Preliminary Blood No Growth after 96 hours 04/13/22 18:45 Gram Stain - Preliminary Thigh - Right Wound Culture - Preliminary 04/13/22 18:45 Anaerobic Culture - Preliminary Thigh - Right Comments: Foot Xray report reviewed Venous US: report reviewed Assessment and Plan Plan: I still believe this is an infectious process . I doubt RA which is usually symmetrical and affects multiple joints. A reactive arthritis may present like this though the patient denies a preceding inefction , GI or . I would still like to order a HLA b27 . I will order MRI rt ankle and if there is a significant effusion I will try to aspirate it. I spoke to Dr Brunson about this case and he will order a swab culture of the right groin lesion. I will follow up after MRI is done. Please do not hesitate to call me with questions and Thank you for the consultation.
--- NOTE | 2022-04-15 14:28 | P.PN ---
Progress Note - Text Progress Note Date: 04/15/22 I spoke to the patient on the phone today and he says he feels the same and still is unable to bear weight on right foot. He does feel fine when his foot is on the bed. I told him that his MRI did not show an effusion large enough to drain.We are still waiting for final cultures on his groin lesion so far negative, If it conbtinues to be negative tomorrow, I will inject his Rt ankle tomorrow with intraarticular steroids for possible reactive arthritis , HLA b27 resukt pending. I spoke to Dr. Brunson today and he was OK with IA steroid injection. The patient was very frustated that we have no answers. I tried to answer all his qusetions to the best of my ability and he was agreeable to try the injection tomorrow.
[2022-04-15] MEDS: SODIUM CHLORIDE 0.9% 1,000 ML IV SCH (14:36)
[2022-04-15] MEDS ORDERED: CALAMINE/ZINC OXIDE LOTION 177 ML BTL TOPICAL PRN (16:09)
--- NOTE | 2022-04-15 16:53 | P.PN ---
Subjective Progress Note Date: 04/14/22 Principal diagnosis: Right ankle and leg cellulitis Patient is 61-year-old male presenting to the ER for evaluation of pain and swelling involving the right ankle and lower extremity patient mention his symptoms started on Saturday while he was at work however the patient denies any history of any trauma or fall patient did mention that his leg was itching 2 days prior to that and he did have a scratch at the area subsequently developing increasing pain and swelling to the right ankle and lower leg area , patient did have MRI of the right ankle which issues subcutaneous edema mild ankle joint effusion no evidence of tear or fracture on today's evaluation that is 04/14/2022, the patient continues to be afebrile, the patient is still complaining of pain to the right lower leg and ankle area, the patient denies chest pain shortness of breath or cough no abdominal pain no diarrhea Objective - Vital Signs Vital signs: Vital Signs Temp 98.8 F 04/14/22 14:00 Pulse 78 04/14/22 14:00 Resp 16 04/14/22 14:00 BP 135/94 04/14/22 14:00 Pulse Ox 98 04/14/22 14:00 FiO2 Intake & Output 04/13/22 04/14/22 04/14/22 18:59 06:59 18:59 Intake Total 1080 Output Total 3227 140 9446 Balance -1000 700 570 Intake: Oral 1080 Output: Urine 1297 363 8938 Other: Voiding Method Urinal - Exam GENERAL DESCRIPTION: A middle-age male lying in bed in no distress RESPIRATORY SYSTEM: Unlabored breathing , decreased breath sounds at bases HEART: S1 S2 regular rate and rhythm , ABDOMEN: Soft , no tenderness EXTREMITIES: Right lower extremity redness slightly decreased still has swelling to the ankle area - Labs CBC & Chem 7: 04/14/22 06:41 04/14/22 06:41 Labs: Abnormal Lab Results - Last 24 Hours (Table) 04/14/22 04/14/22 Range/Units 06:41 06:41 Hgb 12.8 L (13.0-17.0) g/dL MCHC 31.8 L (32.0-37.0) g/dL Calcium 8.6 L (8.7-10.3) mg/dL Microbiology - Last 24 Hours (Table) 04/13/22 18:45 Anaerobic Culture - Preliminary Thigh - Right 04/13/22 18:45 Wound Culture - Preliminary Thigh - Right 04/11/22 05:45 Blood Culture - Preliminary Blood No Growth after 72 hours 04/11/22 05:30 Blood Culture - Preliminary Blood No Growth after 72 hours Assessment and Plan (1) Cellulitis of right leg Current Visit: Yes Status: Acute Code(s): L03.115 - CELLULITIS OF RIGHT LOWER LIMB SNOMED Code(s): 146624730 Plan: 1patient was in the hospital with right ankle and lower extremity swelling and redness apparently started after the patient has been scratching the area 2 days prior to each with concern for possible cellulitis from gram-positive skin daljit failing outpatient or antibiotic therapy possible burden of disease patient currently with no fever or elevated white count. 2patient MRI did not show significant joint effusion some subcutaneous edema possible cellulitis 3patient to continue with the vancomycin and Rocephin at this point Time with Patient: Less than 30
--- NOTE | 2022-04-15 16:54 | P.PN ---
Subjective Progress Note Date: 04/15/22 Principal diagnosis: Right ankle and leg cellulitis Patient is 61-year-old male presenting to the ER for evaluation of pain and swelling involving the right ankle and lower extremity patient mention his symptoms started on Saturday while he was at work however the patient denies any history of any trauma or fall patient did mention that his leg was itching 2 days prior to that and he did have a scratch at the area subsequently developing increasing pain and swelling to the right ankle and lower leg area , patient did have MRI of the right ankle which issues subcutaneous edema mild ankle joint effusion no evidence of tear or fracture on today's evaluation that is 04/15/2022, the patient denies any fever or any chills, the patient is still complaining of pain to the right lower leg and ankle area and is refusing any further blood draw, the patient denies chest pain shortness of breath or cough no abdominal pain no diarrhea Objective - Vital Signs Vital signs: Vital Signs Temp 98.2 F 04/15/22 14:00 Pulse 84 04/15/22 14:00 Resp 16 04/15/22 14:00 BP 136/81 04/15/22 14:00 Pulse Ox 99 04/15/22 14:00 FiO2 Intake & Output 04/14/22 04/15/22 04/15/22 18:59 06:59 18:59 Intake Total 1080 Output Total 1650 900 700 Balance -570 -900 -700 Intake: Oral 1080 Output: Urine 1650 900 700 - Exam GENERAL DESCRIPTION: A middle-age male lying in bed in no distress RESPIRATORY SYSTEM: Unlabored breathing , decreased breath sounds at bases HEART: S1 S2 regular rate and rhythm , ABDOMEN: Soft , no tenderness EXTREMITIES: Right lower extremity redness slightly decreased still has swelling to the ankle area - Labs CBC & Chem 7: 04/14/22 06:41 04/14/22 06:41 Labs: Microbiology - Last 24 Hours (Table) 04/11/22 05:30 Blood Culture - Preliminary Blood No Growth after 96 hours 04/11/22 05:45 Blood Culture - Preliminary Blood No Growth after 96 hours 04/13/22 18:45 Gram Stain - Preliminary Thigh - Right Wound Culture - Preliminary 04/13/22 18:45 Anaerobic Culture - Preliminary Thigh - Right Assessment and Plan (1) Cellulitis of right leg Current Visit: Yes Status: Acute Code(s): L03.115 - CELLULITIS OF RIGHT LOWER LIMB SNOMED Code(s): 310079483 Plan: 1patient was in the hospital with right ankle and lower extremity swelling and redness apparently started after the patient has been scratching the area 2 days prior to each with concern for possible cellulitis from gram-positive skin daljit failing outpatient or antibiotic therapy possible burden of disease patient currently with no fever or elevated white count. 2patient MRI did not show significant joint effusion some subcutaneous edema possible cellulitis 3patient with no fever or elevated white count patient did have a normal sed rate CRP was mildly elevated at the culture negative with resistant pathogen we will discontinue vancomycin continue the patient on Rocephin advised Juan wrap to decrease some of the swelling down Time with Patient: Less than 30
--- NOTE | 2022-04-15 18:59 | P.PN ---
Subjective Progress Note Date: 04/15/22 Principal diagnosis: Cellulitis right leg and ankle 61 years old male with multiple medical problems as below presents because of right foot and ankle pain and swelling of 2 days' duration as he states. patient came to emergency room two days ago for the same complaint , he had right foot xray showing no fracture or dislocation , He was discharged on Keflex for cellulitis, patient presents with similar complaint of right foot/right ankle swelling and warmth and tenderness suspicious for cellulitis versus osteomyelitis. Patient denies any other symptoms, no chest pain or dyspnea, no abdominal pain and vomiting no diarrhea, no urinary complaints, no headache dizziness weakness or numbness He admits to smoking cigarettes and was counseled and agrees to the nicotine patch, he states that he smokes 3-4 cigarettes a day. Also he drinks alcohol o ccasionally but he denies any illicit drugs Vital signs stable and patient is afebrile Labs looked normal including CBC, INR, BMP and liver enzymes EKG showing stricture rhythm at [address]-T changes Emergency room patient was started on ceftriaxone and IV vancomycin 04/14/2022 Patient is seen and evaluated in room at bedside; denies any specific complaints patient was in the hospital with right ankle and lower extremity swelling and redness apparently started after the patient has been scratching the area 2 days prior to each with concern for possible cellulitis from gram-positive skin daljit failing outpatient or antibiotic therapy possible burden of disease patient currently with no fever or elevated white count. patient seemed to have shown some clinical improvement and continue with the vancomycin pharmacy to dose along with Rocephin to 2 g daily. patient has been evaluated by rheumatology MRI of the ankle has been ordered results will be followed if any evidence of joint effusion the patient will benefit from aspirate of the fluid for culture 04/15/2022 patient is seen and evaluated in room at bedside; denies any fever or any chills, the patient is still complaining of pain to the right lower leg and ank le area and is refusing any further blood draw, the patient denies chest pain shortness of breath or cough no abdominal pain no diarrhea patient was in the hospital with right ankle and lower extremity swelling and redness apparently started after the patient has been scratching the area 2 days prior to each with concern for possible cellulitis from gram-positive skin daljit failing outpatient or antibiotic therapy possible burden of disease patient currently with no fever or elevated white count. patient MRI did not show significant joint effusion some subcutaneous edema possible cellulitis patient with no fever or elevated white count patient did have a normal sed rate CRP was mildly elevated at the culture negative with resistant pathogen we will discontinue vancomycin continue the patient on Rocephin advised Juan wrap to decrease some of the swelling down Objective - Vital Signs Vital signs: Vital Signs Temp 98.2 F 04/15/22 14:00 Pulse 84 04/15/22 14:00 Resp 16 04/15/22 14:00 BP 136/81 04/15/22 14:00 Pulse Ox 99 04/15/22 14:00 FiO2 Intake & Output 04/14/22 04/15/22 04/15/22 18:59 06:59 18:59 Intake Total 1080 Output Total 1650 900 700 Balance -570 -900 -700 Intake: Oral 1080 Output: Urine 1650 900 700 - Exam GENERAL: The patient is alert and oriented x3, not in any acute distress. Well developed, well nourished. HEENT: Pupils are round and equally reacting to light. EOMI. No scleral icterus. No conjunctival pallor. Normocephalic, atraumatic. No pharyngeal erythema. No thyromegaly. CARDIOVASCULAR: S1 and S2 present. No murmurs, rubs, or gallops. PULMONARY: Chest is clear to auscultation, no wheezing or crackles. ABDOMEN: Soft, nontender, nondistended, normoactive bowel sounds. No palpable organomegaly. MUSCULOSKELETAL: No joint swelling or deformity. -EXTREMITIES: No cyanosis, clubbing, or pedal edema. right ankle and foot are significantly swollen, red up to the distal third of the right leg and tender (area demarcated today) NEUROLOGICAL: Gross neurological examination did not reveal any focal deficits. SKIN: No rashes. no petechiae. - Labs CBC & Chem 7: 04/14/22 06:41 04/14/22 06:41 Labs: Microbiology - Last 24 Hours (Table) 04/11/22 05:30 Blood Culture - Preliminary Blood No Growth after 96 hours 04/11/22 05:45 Blood Culture - Preliminary Blood No Growth after 96 hours 04/13/22 18:45 Gram Stain - Preliminary Thigh - Right Wound Culture - Preliminary 04/13/22 18:45 Anaerobic Culture - Preliminary Thigh - Right Assessment and Plan Assessment: Right foot/ankle Cellulitis versus arthritis, failed outpatient treatment. Nicotine dependence Diabetes mellitus Hypertension Hyperlipidemia COPD, no acute exacerbation History of deep venous thrombosis History of mitral valve prolapse History of osteoarthritis History of anxiety, depression, not an active issue Plan: Continue with antibiotics, currently on IV vancomycin and ceftriaxone Infectious disease consult Follow-up culture results We will consult orthopedic team to We will consult dermatology Check ultrasound of the leg to rule out DVT and repeat x-ray of the right foot Labs and medication were reviewed.. Continue same treatment. Continue with symptomatic treatment. Resume home medication. Monitor labs and vitals. DVT and GI prophylaxis. Further recommendations as per clinical course of the patient DVT prophylaxis: Subcutaneous heparin GI Prophylaxis: Pepcid PT/OT: Pending, currently deferred Prognosis is guarded
[2022-04-16] MEDS: NICOTINE 14MG/24HR PATCH TRANSDERM SCH (06:15)
[2022-04-16] MEDS: SODIUM CHLORIDE 0.9% 1,000 ML IV SCH ×2 (06:17→17:16)
[2022-04-16 08:13] VITALS: RESP 16
[2022-04-16] MEDS: FAMOTIDINE 20 MG/2 ML VIAL IV SCH ×2 (08:59→22:44)
[2022-04-16] MEDS: HEPARIN SODIUM,PORCINE/PF 5,000 UNIT/0.5 ML SYRINGE SQ SCH ×2 (08:59→22:45)
[2022-04-16] MEDS: HYDROcodone/APAP 5-325MG 1 EACH TAB PO PRN (09:00)
[2022-04-16 09:02] LABS: African American GFR (CKD) 118.9 (60.0-200.0); BUN/Creat Ratio 21.29 Ratio (12.00-20.00); Blood Urea Nitrogen 14.9 mg/dL (9.0-27.0); C Reactive Protein 6.7 mg/dL (0.00-0.80); Calcium 8.7 mg/dL (8.7-10.3); Non-African American GFR(CKD) 102.6 (60.0-200.0); Potassium 4.5 mmol/L (3.5-5.5)
[2022-04-16 09:22] LABS: Basophils # (A) 0.03 X 10*3/uL (0.00-0.10); Basophils % (A) 0.8 %; Eosinophils # (A) 0.16 X 10*3/uL (0.04-0.35); Eosinophils % (A) 4.1 %; HCT 39.6 % (39.6-50.0); HGB 12.8 g/dL (13.0-17.0); Immature Grans, Automated 0.3 %; Lymphocytes # (A) 0.96 X 10*3/uL (0.90-5.00); Lymphocytes % (A) 24.4 %; MCH 28.6 pg (27.0-32.0); MCHC 32.3 g/dL (32.0-37.0); MCV 88.6 fL (80.0-97.0); Mean Platelet Volume 10.6 fL (9.5-12.2); Monocytes # (A) 0.87 X 10*3/uL (0.20-1.00); Monocytes % (A) 22.1 %; NRBC Per 100 WBC 0 /100 WBCS (0.0-0.0); Neutrophils % (A) 48.3 %; Platelet Count 217 X 10*3/uL (140-440); RBC 4.47 X 10*6/uL (4.40-5.60); RDW 12.6 % (11.5-14.5); WBC 3.93 X 10*3/uL (4.50-10.00)
[2022-04-16] MEDS: MORPHINE SULFATE 4 MG/ML SYRINGE IV PRN (10:51)
[2022-04-16] MEDS ORDERED: LIDOCAINE 1% INJ 10MG/ML (30 ML VIAL-PF) SQ STA (13:52)
[2022-04-16] MEDS ORDERED: TRIAMCINOLONE ACETONIDE 40 MG/ML 1 ML VIAL INTRAARTIC STA (13:55)
--- NOTE | 2022-04-16 14:43 | P.PN ---
Subjective Progress Note Date: 04/16/22 Cellulitis right leg and ankle 61 years old male with multiple medical problems as below presents because of right foot and ankle pain and swelling of 2 days' duration as he states. patient came to emergency room two days ago for the same complaint , he had right foot xray showing no fracture or dislocation , He was discharged on Keflex for cellulitis, patient presents with similar complaint of right foot/right ankle swelling and warmth and tenderness suspicious for cellulitis versus osteomyelitis. Patient denies any other symptoms, no chest pain or dyspnea, no abdominal pain and vomiting no diarrhea, no urinary complaints, no headache dizziness weakness or numbness He admits to smoking cigarettes and was counseled and agrees to the nicotine patch, he states that he smokes 3-4 cigarettes a day. Also he drinks alcohol occasionally but he denies any illicit drugs Vital signs stable and patient is afebrile Labs looked normal including CBC, INR, BMP and liver enzymes EKG showing stricture rhythm at [address]-T changes Emergency room patient was started on ceftriaxone and IV vancomycin 04/14/2022 Patient is seen and evaluated in room at bedside; denies any specific complaints patient was in the hospital with right ankle and lower extremity swelling and redness apparently started after the patient has been scratching the area 2 days prior to each with concern for possible cellulitis from gram-positive skin daljit failing outpatient or antibiotic therapy possible burden of disease patient currently with no fever or elevated white count. patient seemed to have shown some clinical improvement and continue with the vancomycin pharmacy to dose along with Rocephin to 2 g daily. patient has been evaluated by rheumatology MRI of the ankle has been ordered results will be followed if any evidence of joint effusion the patient will benefit from aspirate of the fluid for culture 04/15/2022 patient is seen and evaluated in room at bedside; denies any fever or any chills, the patient is still complaining of pain to the right lower leg and ankle area and is refusing any further blood draw, the patient denies chest pain shortness of breath or cough no abdominal pain no diarrhea patient was in the hospital with right ankle and lower extremity swelling and redness apparently started after the patient has been scratching the area 2 days prior to each with concern for possible cellulitis from gram-positive skin daljit failing outpatient or antibiotic therapy possible burden of disease patient currently with no fever or elevated white count. patient MRI did not show significant joint effusion some subcutaneous edema possible cellulitis patient with no fever or elevated white count patient did have a normal sed rate CRP was mildly elevated at the culture negative with resistant pathogen we will discontinue vancomycin continue the patient on Rocephin advised Juan wrap to decrease some of the swelling down 04/16/2022 Patient is seen and evaluated and follow-up being followed by infectious disease along with rheumatology. Plan is for possible steroid injection of the right lower extremity per rheumatology which is currently pending for today. Patient also seen by infectious disease and maintained on ceftriaxone and we'll transition to oral Keflex on discharge. Patient reports his pain is not being managed and continues to request IV pain medication. Encouraged the use of oral medications as patient will not be going home on IV pain medications. Cultures have been negative and anaerobic culture showing no isolates to date. Patient is afebrile denies chest pain or shortness of breath. Patient also having conversation on his cell phone during exam. Patient reports to tolerating diet with no reports of nausea or vomiting noted. Social work is following providing resources as patient will be going to [facility] on discharge. Most likely discharge in the a.m. encourage the patient to continue to elevate lower extremity while at rest. Recommend Juan wraps to the lower extremities to help with swelling. Review of systems: Constitutional: No reports of fatigue, fever, or chills Cardiovascular: No reports of chest pain or palpitations Respiratory: No reports of shortness of breath or cough GI: No reports of nausea, vomiting, or diarrhea : No reports of dysuria or retention Neurovascular: No reports of weakness or numbness, reports continued right lower extremity pain All medications have been reviewed Physical exam: GENERAL: The patient is alert and oriented x3, not in any acute distress. Well developed, well nourished. HEENT: Pupils are round and equally reacting to light. EOMI. No scleral icterus. No conjunctival pallor. Normocephalic, atraumatic. No pharyngeal erythema. No thyromegaly. CARDIOVASCULAR: S1 and S2 present. No murmurs, rubs, or gallops. PULMONARY: Chest is clear to auscultation, no wheezing or crackles. ABDOMEN: Soft, nontender, nondistended, normoactive bowel sounds. No palpable organomegaly. MUSCULOSKELETAL: No joint swelling or deformity. EXTREMITIES: No cyanosis, clubbing, or pedal edema. right ankle and foot are swollen, red up to the distal third of the right leg and tender (area demarcated today), some improvement in swelling NEUROLOGICAL: Gross neurological examination did not reveal any focal deficits. SKIN: No rashes. no petechiae. Assessment: Right foot/ankle Cellulitis versus arthritis, failed outpatient treatment. Nicotine dependence Diabetes mellitus Hypertension Hyperlipidemia COPD, no acute exacerbation History of deep venous thrombosis History of mitral valve prolapse History of osteoarthritis History of anxiety, depression, not an active issue Plan: Continue with antibiotics, currently on IV ceftriaxone, cultures have been negative will continue on oral Keflex Infectious disease following an cultures have been negative recommend oral Keflex on discharge Rheumatology consulted Dr. Leonard and scheduled to have a steroid injection of the right lower extremity today is currently pending During exam patient being extremely rude reporting no one is helping him and c daisyues to request IV pain medications and has been quite demanding per nursing staff Social work is following providing resources and patient will be going to the [facility] on discharge Patient will discharge in 24 hours The impression and plan of care has been dictated by Paola Hammond, Nurse Practitioner as directed. Dr. Jess MD I have performed a history and examination and MDM of this patient, discussed the same with the dictator, and agree with the dictator's assessment and plan as written ,documented as a scribe. Based on total visit time, I have performed more than 50% of the visit. Objective - Vital Signs Vital signs: Vital Signs Temp 99.2 F 04/16/22 07:26 Pulse 75 04/16/22 07:26 Resp 16 04/16/22 07:26 BP 149/78 04/16/22 07:26 Pulse Ox 100 04/16/22 07:26 FiO2 Intake & Output 04/15/22 04/16/22 04/16/22 18:59 06:59 18:59 Output Total 1150 1475 Balance -1150 -1475 Output: Urine 1150 1475 - Labs CBC & Chem 7: 04/16/22 04:46 04/16/22 04:46 Labs: Abnormal Lab Results - Last 24 Hours (Table) 04/16/22 04/16/22 Range/Units 04:46 04:46 WBC 3.93 L (4.50-10.00) X 10*3/uL Hgb 12.8 L (13.0-17.0) g/dL BUN/Creatinine Ratio 21.29 H (12.00-20.00) Ratio C-Reactive Protein 6.70 H (0.00-0.80) mg/dL Microbiology - Last 24 Hours (Table) 04/13/22 18:45 Anaerobic Culture - Preliminary Thigh - Right 04/13/22 18:45 Gram Stain - Final Thigh - Right Wound Culture - Final 04/11/22 05:45 Blood Culture - Preliminary Blood No Growth after 120 hours 04/11/22 05:30 Blood Culture - Preliminary Blood No Growth after 120 hours
[2022-04-16] MEDS ORDERED: ACETAMINOPHEN TAB 325 MG TAB PO PRN (15:33)
[2022-04-17 02:12] VITALS: BP 146/80; PULSE 98; TEMP 97.4
[2022-04-17] MEDS: HEPARIN SODIUM,PORCINE/PF 5,000 UNIT/0.5 ML SYRINGE SQ SCH (07:50)
[2022-04-17] MEDS: FAMOTIDINE 20 MG/2 ML VIAL IV SCH (07:57)
[2022-04-17] MEDS: NICOTINE 14MG/24HR PATCH TRANSDERM SCH (07:57)
[2022-04-17] MEDS: SODIUM CHLORIDE 0.9% 1,000 ML IV SCH (07:57)
[2022-04-17 08:53] LABS: African American GFR (CKD) >90 (>60 ml/min/1.73 sqM); Non-African American GFR(CKD) >90 (>60 ml/min/1.73 sqM)
[2022-04-17 10:20] LABS: HLA B27 NEGATIVE
--- NOTE | 2022-04-17 11:42 | P.PN ---
Subjective Progress Note Date: 04/16/22 Principal diagnosis: Right ankle and leg cellulitis Patient is 61-year-old male presenting to the ER for evaluation of pain and swelling involving the right ankle and lower extremity patient mention his symptoms started on Saturday while he was at work however the patient denies any history of any trauma or fall patient did mention that his leg was itching 2 days prior to that and he did have a scratch at the area subsequently developing increasing pain and swelling to the right ankle and lower leg area , patient did have MRI of the right ankle which issues subcutaneous edema mild ankle joint effusion no evidence of tear or fracture on today's evaluation that is 04/16/2022, the patient remains to be afebrile, on entering the room the patient asked if I will restart his morphine, I told the patient I do not deal with pain medication only help with antibiotics for infection of his leg patient mentioned he likes pain medication and would like to get rid of me, patient was advised not to talk in a rude manner, patient become more rude and now saying that I did not explain anything to him even though he did not give me any chance and started with asking for the pain me dication Objective - Vital Signs Vital signs: Vital Signs Temp 99.2 F 04/16/22 07:26 Pulse 75 04/16/22 07:26 Resp 16 04/16/22 07:26 BP 149/78 04/16/22 07:26 Pulse Ox 100 04/16/22 07:26 FiO2 Intake & Output 04/15/22 04/16/22 04/16/22 18:59 06:59 18:59 Output Total 1150 1475 Balance -1150 -1475 Weight 63.5 kg Output: Urine 1150 1475 - Exam Right leg is currently covered in the Juan wrap and is no drainage - Labs CBC & Chem 7: 04/16/22 04:46 04/17/22 07:57 Labs: Abnormal Lab Results - Last 24 Hours (Table) 04/16/22 04/16/22 Range/Units 04:46 04:46 WBC 3.93 L (4.50-10.00) X 10*3/uL Hgb 12.8 L (13.0-17.0) g/dL BUN/Creatinine Ratio 21.29 H (12.00-20.00) Ratio C-Reactive Protein 6.70 H (0.00-0.80) mg/dL Microbiology - Last 24 Hours (Table) 04/13/22 18:45 Anaerobic Culture - Preliminary Thigh - Right 04/13/22 18:45 Gram Stain - Final Thigh - Right Wound Culture - Final 04/11/22 05:45 Blood Culture - Preliminary Blood No Growth after 120 hours 04/11/22 05:30 Blood Culture - Preliminary Blood No Growth after 120 hours Assessment and Plan (1) Cellulitis of right leg Status: Acute Code(s): L03.115 - CELLULITIS OF RIGHT LOWER LIMB SNOMED Code(s): 657317880 Plan: 1patient was in the hospital with right ankle and lower extremity swelling and redness apparently started after the patient has been scratching the area 2 days prior to each with concern for possible cellulitis from gram-positive skin daljit failing outpatient or antibiotic therapy possible burden of disease patient currently with no fever or elevated white count. 2patient MRI did not show significant joint effusion some subcutaneous edema possible cellulitis 3patient with no fever or elevated white count patient did have a normal sed rate CRP was mildly elevated , clinical suspicious low for deep infection, MRI was negative for any abscess or significant joint effusion, he is on Rocephin that can be switched to oral Keflex this was explained to the METAL TREATER for admitting team I would not be able to follow this patient with his Rude behavior towards me Time with Patient: Less than 30
--- NOTE | 2022-04-19 02:56 | P.DS ---
Providers Date of admission: 04/11/22 05:19 Expected date of discharge: 04/17/22 Attending physician: Roz Warner Consults: 04/11/22 08:18 Consult Physician Urgent Consulting Provider: Francisco Javier Pang Consult Reason/Comments: Right ankle swelling Do you want consulting provider notified?: Yes Consult Physician Urgent Consulting Provider: Mitali Brunson Consult Reason/Comments: Cellulitis Do you want consulting provider notified?: Yes 04/12/22 11:36 Consult Physician Urgent Consulting Provider: Claudine Leonard Consult Reason/Comments: severe right foot inflammation , rule out rheumatological causes Do you want consulting provider notified?: Yes Primary care physician: Cherie Coyne Hospital Course: Final diagnosis Right foot/ankle Cellulitis versus arthritis, failed outpatient treatment. Nicotine dependence Diabetes mellitus Hypertension Hyperlipidemia COPD, no acute exacerbation History of deep venous thrombosis History of mitral valve prolapse History of osteoarthritis History of anxiety, depression, not an active issue Discharge disposition Patient is being discharged in a stable condition with guarded prognosis to [facility]. Patient will follow-up with Dr. Coyne in the outpatient setting upon discharge. Patient is to follow-up with rheumatology Dr. Leonard as scheduled. Patient will continue on oral Keflex 4 times daily for the next 10 days. Total time taken is greater than 35 minutes. Hospital course This is a 61-year-old male who was recently admitted with right lower extremity cellulitis. Cultures have been negative and patient was evaluated by infectious disease antibiotics and will discharge on oral antibiotics. Patient during hospitalization continue to be reviewed with staff and consultations and noncompliant with medications. Patient requesting pain medications as well. Patient was seen and evaluated by rheumatology and given a steroid injection in the right lower extremity will be following up with Dr. Leonard in the outpatient setting. Patient has been cleared by consultations for discharge today. Currently no reports of chest pain, shortness of breath, or palpitations. Patient is afebrile. No reports of nausea or vomiting and patient is tolerating diet. Patient will be discharged home today. Guarded prognosis is patient is high risk for readmission noncompliant with medications and follow-up Physical exam: Gen: This is a 61-year-old male awake, alert and oriented 3, thin built, elderly appearing male HEENT: Head is atraumatic, normocephalic. Pupils equal, round. Sclerae is anict litzy. NECK: Supple. No JVD. No lymphadenopathy. No thyromegaly. LUNGS: Clear to auscultation. No wheezes or rhonchi. No intercostal retractions. HEART: Regular rate and rhythm. No murmur. ABDOMEN: Soft. Bowel sounds are present. No masses. No tenderness. EXTREMITIES: No pedal edema. No calf tenderness. Right lower extremity currently dressed and dressing is dry and intact NEUROLOGICAL: Patient is awake, alert and oriented x3. Cranial nerves 2 through 12 are grossly intact. Please refer to medication reconciliation sheet for a list of medications. The impression and plan of care has been dictated by Paola Hammond, Nurse Practitioner as directed. Dr. Jess MD I have performed a history and examination and MDM of this patient, discussed the same with the dictator, and agree with the dictator's assessment and plan as written ,documented as a scribe. Based on total visit time, I have performed more than 50% of the visit. Patient Condition at Discharge: Good Plan - Discharge Summary Discharge Rx Participant: No New Discharge Prescriptions: New Calamine/Zinc Oxide Lotion [Calamine Lotion] 1 applic TOPICAL QID PRN each PRN Reason: Skin Irritation HYDROcodone/APAP 5-325MG [[place] 5-325] 1 each PO Q6HR PRN #6 tab PRN Reason: Moderate Pain (Scale 4 To 6) Continue Gabapentin 800 mg PO TID Cephalexin [Keflex] 500 mg PO QID 10 Days #40 cap Discharge Medication List Gabapentin 800 mg PO TID 05/18/21 [History] Calamine/Zinc Oxide Lotion [Calamine Lotion] 1 applic TOPICAL QID PRN each 04/17/22 [Rx] Cephalexin [Keflex] 500 mg PO QID 10 Days #40 cap 04/17/22 [Rx] HYDROcodone/APAP 5-325MG [[place] 5-325] 1 each PO Q6HR PRN #6 tab 04/17/22 [Rx] Follow up Appointment(s)/Referral(s): Cherie Coyne MD [Primary Care Provider] - 04/19/22 3:15 pm Claudine Leonard MD [STAFF PHYSICIAN] - 1 Week (Please call office after discharge to set up appointment ) Patient Instructions/Handouts: Cellulitis (ED) Activity/Diet/Wound Care/Special Instructions: Activity Limited until follow-up Follow-up with primary care provider on discharge Follow-up with substation technician outpatient Continue taking medications as prescribed Discharge Disposition: HOME SELF-CARE
--- NOTE | 2022-04-19 07:57 | CDI ---
Documentation Clarification Form Date: 04/19/2022 07:47:00 AM From: Marcella Britton Admit Date: 04/11/2022 05:19:00 AM Patient Name: Whit Cowan Visit Number: [id number] Discharge Date: 04/17/2022 12:28:00 PM ATTENTION: The Clinical Documentation Specialists (CDI) and [facility] Coding Staff appreciate your assistance in clarifying documentation. Please respond to the clarification below the line at the bottom and electronically sign. The CDI & [facility] Coding staff will review the response and follow-up if needed. Please note: Queries are made part of the Legal Health Record. If you have any questions, please contact the author of this message via ITS. Dr. Anaya E Sheet Patient with right foot/ankle cellulitis is documented throughout chart and patient is noted to have diabetes mellitus. Please clarify if there is a relationship between the foot/ankle cellulitis and the diabetes. History/Risk Factors: Patient with diabetes and cellulitis Clinical Indicators: cellulitis Treatment: Rocephin and Vancomycin Please clarify the relationship, if any, which is clinically appropriate for this patient: [ ] Right ankle/foot cellulitis is due to diabetes [ ] Right ankle/foot cellulitis is not due to diabetes [ ] Other explanation of clinical findings (please specify) [ ] Unable to determine (no explanation for clinical findings) Unable to determine MTDD
== END 2022-04-17 12:28 | disposition home or self-care (01) | DRG 603 ==
LOC: EC 04:16 → 4SSUR 05:19
PROVIDERS: ADMIT Hospitalist; ATTEND Hospitalist
DX: L03.115 Cellulitis of right lower limb (principal); J44.9 Chronic obstructive pulmonary disease, unspecified; G89.29 Other chronic pain; M54.9 Dorsalgia, unspecified; E11.9 Type 2 diabetes mellitus without complications; F31.9 Bipolar disorder, unspecified; E78.5 Hyperlipidemia, unspecified; Z71.6 Tobacco abuse counseling; F17.210 Nicotine dependence, cigarettes, uncomplicated; I10 Essential (primary) hypertension; Z79.899 Other long term (current) drug therapy; Z86.718 Personal history of other venous thrombosis and embolism; Z28.310 Unvaccinated for COVID-19; Z28.82 Immunization not carried out because of caregiver refusal; M19.90 Unspecified osteoarthritis, unspecified site
CPT/HCPCS: 80048; 80053; 80202; 82565; 83735; 84100; 84145; 84550; 85025; 85610; 85652; 85730; 86140; 86812; 87040; 87070; 87075; 87205; 93005; 94760; 96361; 96365; 96366; 96372; 96375; 99285

== ENCOUNTER 2022-05-01 02:59 | Emergency (ER) | payer BC, MEDICARE, OTHER ==
[2022-05-01 03:02] VITALS: BP 157/118; PULSE 109; RESP 20; TEMP 98
[2022-05-01] MEDS ORDERED: KETOROLAC 15 MG/ML 1 ML VIAL IM STA (04:11)
--- NOTE | 2022-05-01 04:13 | ED ---
General Adult HPI - General Chief complaint: Extremity Problem,Nontraumatic Stated complaint: Feet pain Time Seen by Provider: 05/01/22 03:37 Source: patient Mode of arrival: ambulatory Limitations: no limitations - History of Present Illness Initial comments: This is a 61-year-old male with a past medical history including chronic lateral feet pain presents emergency department for bilateral foot pain. The patient stated that he was initially seen by the pharmacy aide last week and was given a prescription for antibiotics, steroids and gabapentin. The patient did state that he has had continued foot pain and stated that he had some difficulty and pain with walking secondary to pain in the right foot more than the left earlier today speaking to the emergency department for evaluation. The patient denied trauma to the bilateral feet. The patient denied any other acute pain or complaints at this time. The patient also denied any swelling to the feet. The patient stated that he had been trying to use his feet more often to gain strength in order to go back to work eventually. The patient denied any other acute pain or complaints at this time. - Related Data Home Medications Medication Instructions Recorded Confirmed Gabapentin 800 mg PO TID 05/18/21 04/11/22 Previous Rx's Medication Instructions Recorded Calamine/Zinc Oxide Lotion 1 applic TOPICAL QID PRN each 04/17/22 [Calamine Lotion] Cephalexin [Keflex] 500 mg PO QID 10 Days #40 cap 04/17/22 HYDROcodone/APAP 5-325MG [[place] 1 each PO Q6HR PRN #6 tab 04/17/22 5-325] Allergies Allergy/AdvReac Type Severity Reaction Status Date / Time No Known Allergies Allergy Verified 05/01/22 03:03 Review of Systems ROS Statement: Those systems with pertinent positive or pertinent negative responses have been documented in the HPI. ROS Other: All systems not noted in ROS Statement are negative. Past Medical History Past Medical History: COPD, Diabetes Mellitus, Deep Vein Thrombosis (DVT), Hyperlipidemia, Mitral Valve Prolapse (MVP), Osteoarthritis (OA) Additional Past Medical History / Comment(s): heart murmur, DVT years ago, chronic back, foot & leg pain, states he's not diabetic, one said he was, one said he wasn't, took metformin in past History of Any Multi-Drug Resistant Organisms: None Reported Past Surgical History: Orthopedic Surgery Additional Past Surgical History / Comment(s): left leg vein surg., right wrist surg. Past Anesthesia/Blood Transfusion Reactions: No Reported Reaction Past Psychological History: Anxiety, Bipolar, Depression Smoking Status: Current every day smoker Past Alcohol Use History: Occasional Past Drug Use History: Marijuana - Past Family History Father Family Medical History: No Reported History Mother Family Medical History: Unable to Obtain Brother(s) Family Medical History: No Reported History Sister(s) Family Medical History: No Reported History General Exam Limitations: no limitations General appearance: alert, in no apparent distress Head exam: Present: atraumatic, normocephalic, normal inspection Eye exam: Present: normal appearance, PERRL Pupils: Present: normal accommodation ENT exam: Present: normal exam, normal oropharynx, mucous membranes moist Neck exam: Present: normal inspection, full ROM Respiratory exam: Present: normal lung sounds bilaterally Cardiovascular Exam: Present: regular rate, normal rhythm, normal heart sounds GI/Abdominal exam: Present: soft, normal bowel sounds Extremities exam: Present: normal inspection, full ROM Back exam: Present: normal inspection, full ROM Neurological exam: Present: alert, oriented X3, CN II-XII intact Psychiatric exam: Present: normal affect, normal mood Skin exam: Present: warm, dry Course Vital Signs 05/01/22 03:01 Temperature 98 F Pulse Rate 109 H Respiratory 20 Rate Blood Pressure 157/118 O2 Sat by Pulse 99 Oximetry Medical Decision Making - Medical Decision Making Was pt. sent in by a medical professional or institution? @ -No Did you speak to anyone other than the patient for history? @ -No Did you review nursing and triage notes? @ -Nursing triage notes reviewed Were old charts reviewed? @ -No Differential Diagnosis? @ -Peripheral artery disease, DVT, gout, fusion EKG interpreted by me (3pts min.)? @ -[none] X-rays interpreted by me (1pt min.)? @ -[none] CT interpreted by me (1pt min.)? @ -[none] U/S interpreted by me (1pt. min.)? @ -[none] What testing was considered but not performed? (CT, X-rays, U/S, labs)? Why? @An x-ray was considered however the patient had chronic foot pain and denied of any acute trauma or abnormalities noted. What meds were considered but not given? Why? @ -Toradol, steroids were considered however the patient was currently on steroids, antibiotics and anti-inflammatories. Did you discuss the management of the patient with other professionals? @ -No Did you reconcile home meds? @ -[none] Was smoking cessation discussed for >3mins.? @ -[none] Was critical care preformed (if so, how long)? @ -[none] Were there social determinants of health that impacted care today? How? (Homelessness, low income, unemployed, alcoholism, drug addiction, transportation, low edu. Level, literacy, decrease access to med. care, assisted, rehab)? @ -None Was there de-escalation of care discussed even if they declined? (Discuss DNR or withdrawal of care, Hospice)? @ -No What co-morbidities impacted this encounter? (DM, HTN, Smoking, COPD, CAD, Cancer, CVA, Hep., AIDS, mental health diagnosis, sleep apnea, morbid obesity)? @ -None Was patient admitted / discharged? @ -The patient was seen and evaluated emergency department. Physical exam, the patient remained stable and denied of any acute discomfort or abdominal a soda physical exam. There is no signs of erythema or induration. The patient likely had chronic the pain and the patient had already seen his pharmacy aide earlier in the week and was arty started on all medications that could be done in the emergency department. The patient did not have any need for any further imaging or testing at this time and was told to continue take his prescriptions as he had been and to follow-up with his primary care physician and rheumato logist for further workup and evaluation. The patient was agreeable to this and all his questions were answered. The patient was discharged home in stable condition. Undiagnosed new problem with uncertain prognosis? @ -[none] Drug Therapy requiring intensive monitoring for toxicity (Heparin, Nitro, Insulin, Cardizem)? @ -[none] Were any procedures done? @ -[none] Diagnosis/symptom? @ -Bilateral foot pain Acute, or Chronic, or Acute on Chronic? @ -Chronic Uncomplicated (without systemic symptoms) or Complicated (systemic symptoms)? @ -Uncomplicated Side effects of treatment? @ -[none] Exacerbation, Progression, or Severe Exacerbation] @ -[no] Poses a threat to life or bodily function? @ -[no] Disposition Clinical Impression: Chronic foot pain Disposition: HOME SELF-CARE Condition: Stable Instructions (If sedation given, give patient instructions): Arthralgia (ED) Is patient prescribed a controlled substance at d/c from ED?: No Referrals: Cherie Coyne MD [Primary Care Provider] - 1-2 days Time of Disposition: 04:10
== END 2022-05-01 05:05 | disposition home or self-care (01) ==
LOC: EC 02:59
DX: M79.672 Pain in left foot (principal); M79.671 Pain in right foot; G89.29 Other chronic pain; J44.9 Chronic obstructive pulmonary disease, unspecified; E11.9 Type 2 diabetes mellitus without complications; F41.9 Anxiety disorder, unspecified; F31.9 Bipolar disorder, unspecified; F17.200 Nicotine dependence, unspecified, uncomplicated; F12.90 Cannabis use, unspecified, uncomplicated
CPT/HCPCS: 99283; 96372; J1885

== ENCOUNTER 2022-05-01 07:40 | Emergency (ER) | payer BC, MEDICARE, OTHER ==
[2022-05-01 07:45] VITALS: PULSE 76; RESP 18; TEMP 97
[2022-05-01] MEDS ORDERED: cloNIDine HCL 0.1 MG TAB PO STA (07:58)
[2022-05-01] MEDS ORDERED: OXYMETAZOLINE 0.05% NASL SPRAY 1 SPRAY BOTTLE NASAL STA (07:58)
--- NOTE | 2022-05-01 08:08 | ED ---
ENT HPI - General Chief complaint: ENT Stated complaint: bloody nose Time Seen by Provider: 05/01/22 07:48 Source: patient, RN notes reviewed Mode of arrival: ambulatory Limitations: no limitations - History of Present Illness Initial comments: 7-year-old male presents emergency Department chief complaint of epistaxis. Patient states it is here this morning for his chronic foot pain states he received tramadol, patient states he went home and noticed some bleeding from his right nostril. Denies any pain is able thirst patient does take blood pressure medication per patient but did not taking this morning. Patient refuses chills no headache, dizziness no chest pain or shortness breath no other associated complaints - Related Data Home Medications Medication Instructions Recorded Confirmed Gabapentin 800 mg PO TID 05/18/21 04/11/22 Previous Rx's Medication Instructions Recorded Calamine/Zinc Oxide Lotion 1 applic TOPICAL QID PRN each 04/17/22 [Calamine Lotion] Cephalexin [Keflex] 500 mg PO QID 10 Days #40 cap 04/17/22 HYDROcodone/APAP 5-325MG [[place] 1 each PO Q6HR PRN #6 tab 04/17/22 5-325] Allergies Allergy/AdvReac Type Severity Reaction Status Date / Time No Known Allergies Allergy Verified 05/01/22 07:45 Review of Systems ROS Statement: Those systems with pertinent positive or pertinent negative responses have been documented in the HPI. ROS Other: All systems not noted in ROS Statement are negative. Past Medical History Past Medical History: COPD, Diabetes Mellitus, Deep Vein Thrombosis (DVT), Hy perlipidemia, Mitral Valve Prolapse (MVP), Osteoarthritis (OA) Additional Past Medical History / Comment(s): heart murmur, DVT years ago, chronic back, foot & leg pain, states he's not diabetic, one said he was, one said he wasn't, took metformin in past History of Any Multi-Drug Resistant Organisms: None Reported Past Surgical History: Orthopedic Surgery Additional Past Surgical History / Comment(s): left leg vein surg., right wrist surg. Past Anesthesia/Blood Transfusion Reactions: No Reported Reaction Past Psychological History: Anxiety, Bipolar, Depression Smoking Status: Current every day smoker Past Alcohol Use History: Occasional Past Drug Use History: Marijuana - Past Family History Father Family Medical History: No Reported History Mother Family Medical History: Unable to Obtain Brother(s) Family Medical History: No Reported History Sister(s) Family Medical History: No Reported History General Exam Limitations: no limitations General appearance: alert, in no apparent distress Head exam: Present: atraumatic, normocephalic, normal inspection Eye exam: Present: normal appearance, PERRL, EOMI. Absent: scleral icterus, conjunctival injection, periorbital swelling ENT exam: Present: normal oropharynx, mucous membranes moist, TM's normal bilaterally, other (Right nostril there is mild bleeding noted). Absent: normal exam Neck exam: Present: normal inspection, full ROM. Absent: tenderness, meningismus, lymphadenopathy Respiratory exam: Present: normal lung sounds bilaterally. Absent: respiratory distress, wheezes, rales, rhonchi, stridor Cardiovascular Exam: Present: regular rate, normal rhythm, normal heart sounds. Absent: systolic murmur, diastolic murmur, rubs, gallop, clicks Neurological exam: Present: alert Skin exam: Present: warm, dry, intact, normal color. Absent: rash Course Vital Signs 05/01/22 07:42 Temperature 97.0 F L Pulse Rate 76 Respiratory 18 Rate Blood Pressure 153/108 O2 Sat by Pulse 97 Oximetry Medical Decision Making - Medical Decision Making 7-year-old presents for minimal bleeding. Patient was given Afrin, nasal clamp bleeding has subsided. We discussed using Afrin flacks 2 days. Patient may use Vaseline or saline rinses. Patient advised to take his blood pressure m edication. Patient was given blood pressure control emergency from. Disposition Clinical Impression: Epistaxis Disposition: HOME SELF-CARE Condition: Stable Instructions (If sedation given, give patient instructions): Nosebleed (ED) Additional Instructions: Please return to the Emergency Department if symptoms worsen or any other concerns. Is patient prescribed a controlled substance at d/c from ED?: No Referrals: Cherie Coyne MD [Primary Care Provider] - 1-2 days Time of Disposition: 08:37
[2022-05-01 09:00] VITALS: BP 141/91
== END 2022-05-01 09:03 | disposition home or self-care (01) ==
LOC: EC 07:40
DX: R04.0 Epistaxis (principal); J44.9 Chronic obstructive pulmonary disease, unspecified; E11.9 Type 2 diabetes mellitus without complications; Z86.718 Personal history of other venous thrombosis and embolism; M19.90 Unspecified osteoarthritis, unspecified site; F41.9 Anxiety disorder, unspecified; F31.9 Bipolar disorder, unspecified; F17.200 Nicotine dependence, unspecified, uncomplicated; F12.90 Cannabis use, unspecified, uncomplicated; Z79.899 Other long term (current) drug therapy
CPT/HCPCS: 99282

== ENCOUNTER 2022-05-16 09:13 | Emergency (ER) | payer BC, MEDICARE, OTHER ==
--- NOTE | 2022-05-16 10:10 | ED ---
URI HPI - General Chief Complaint: Upper Respiratory Infection Stated Complaint: URI Time Seen by Provider: 05/16/22 09:23 Source: patient, RN notes reviewed Mode of arrival: ambulatory Limitations: no limitations - History of Present Illness Initial Comments: 7-year-old male who was a smoker who states he had Covid 19 approximately a month ago who states he's here today because of sinus pressure or congestion with nasal drainage yellow in color also a cough with some yellow phlegm no overt fevers chills sweats no chest pain no other current complaints modifying factors MD Complaint: cough, nasal congestion, sinus pain - Related Data Home Medications Medication Instructions Recorded Confirmed Gabapentin 800 mg PO TID 05/18/21 05/16/22 predniSONE See Taper PO DIRECTED 05/16/22 05/16/22 Previous Rx's Medication Instructions Recorded Amoxic-Pot Clav 875-125Mg 1 tab PO Q12HR 1 Days #20 tab 05/16/22 [Augmentin 875-125] Allergies Allergy/AdvReac Type Severity Reaction Status Date / Time No Known Allergies Allergy Verified 05/16/22 09:17 Review of Systems ROS Statement: Those systems with pertinent positive or pertinent negative responses have been documented in the HPI. ROS Other: All systems not noted in ROS Statement are negative. Past Medical History Past Medical History: COPD, Diabetes Mellitus, Deep Vein Thrombosis (DVT), Hyperlipidemia, Mitral Valve Prolapse (MVP), Osteoarthritis (OA) Additional Past Medical History / Comment(s): heart murmur, DVT years ago, chronic back, foot & leg pain, states he's not diabetic, one drJason said he was, one said he wasn't, took metformin in past History of Any Multi-Drug Resistant Organisms: None Reported Past Surgical History: Orthopedic Surgery Additional Past Surgical History / Comment(s): left leg vein surg., right wrist surg. Past Anesthesia/Blood Transfusion Reactions: No Reported Reaction Past Psychological History: Anxiety, Bipolar, Depression Smoking Status: Current every day smoker Past Alcohol Use History: Occasional Past Drug Use History: Marijuana - Past Family History Father Family Medical History: No Reported History Mother Family Medical History: Unable to Obtain Brother(s) Family Medical History: No Reported History Sister(s) Family Medical History: No Reported History General Exam - General Exam Comments Initial Comments: This is a well-developed thin appearing male who is awake alert oriented 4 Limitations: no limitations General appearance: alert, in no apparent distress Head exam: Present: atraumatic, normocephalic, normal inspection Eye exam: Present: normal appearance, PERRL, EOMI. Absent: scleral icterus, conjunctival injection, periorbital swelling ENT exam: Present: mucous membranes moist, other (Boggy nasal mucosa mild hyperemia to the posterior pharynx no exudate seen.) Neck exam: Present: normal inspection, full ROM, other (No stridor JVD or bruits). Absent: tenderness, meningismus, lymphadenopathy Respiratory exam: Present: normal lung sounds bilaterally. Absent: respiratory distress, wheezes, rales, rhonchi, stridor Cardiovascular Exam: Present: regular rate, normal rhythm, normal heart sounds. Absent: systolic murmur, diastolic murmur, rubs, gallop, clicks GI/Abdominal exam: Present: soft, normal bowel sounds. Absent: distended, tenderness, guarding, rebound, rigid Extremities exam: Present: normal inspection, full ROM, normal capillary refill. Absent: tenderness, pedal edema, joint swelling, calf tenderness Back exam: Present: normal inspection Neurological exam: Present: alert, oriented X3, CN II-XII intact Psychiatric exam: Present: normal affect, normal mood Skin exam: Present: warm, dry, intact, normal color. Absent: rash Course Vital Signs 05/16/22 09:14 Temperature 97.8 F Pulse Rate 86 Respiratory 20 Rate Blood Pressure 142/92 O2 Sat by Pulse 100 Oximetry Procedures - Smoking Cessation Time Spent Discussing Smoking Cessation w/Patient (Minutes): 3 Patient Acknowledges Need for Cessation: Yes Medical Decision Making - Medical Decision Making I did discuss findings with the patient he does demonstrate evidence of sinusitis as etiology for his symptoms with a component of bronchitis we did discuss Was pt. sent in by a medical professional or institution (, PA, CIVIL ENGINEERING SPECIALIST, urgent care, hospital, or shelter...) When possible be specific @ -[No] Did you speak to anyone other than the patient for history (EMS, parent, family, police, friend...)? What history was obtained from this source @ -[No] Did you review nursing and triage notes (agree or disagree)? Why? @ Yes and agree-[I reviewed and agree with nursing and triage notes] Were old charts reviewed (outside hosp., previous admission, EMS record, old EKG, old radiological studies, urgent care reports/EKG's, shelter records)? Report findings @ -[No old charts were reviewed] Differential Diagnosis (chest pain, altered mental status, abdominal pain women, abdominal pain men, vaginal bleeding, weakness, fever, dyspnea, syncope, headache, dizziness, GI bleed, back pain, seizure, CVA, palpatations, mental health)? @ Sinusitis, bronchitis, pneumonia, viral syndrome-[not applicable] EKG interpreted by me (3pts min.). @ -[As above] X-rays interpreted by me (1pt min.). @ Yes no acute process-[None done] CT interpreted by me (1pt min.). @ -[None done] U/S interpreted by me (1pt. min.). @ -[None done] What testing was considered but not performed or refused? (CT, X-rays, U/S, labs)? Why? @ -[None] What meds were considered but not given or refused? Why? @ -[None] Did you discuss the management of the patient with other professionals (professionals i.e. , PA, CIVIL ENGINEERING SPECIALIST, lab, RT, psych nurse, professor of social work, diesel bus mechanic, teacher, community development officer, case management specialist)? Give summary @ -[No] Was smoking cessation discussed for >3mins.? @ Yes-[No] Was critical care preformed (if so, how long)? @ -[No] Were there social determinants of health that impacted care today? How? (Homelessness, low income, unemployed, alcoholism, drug addiction, tr ansportation, low edu. Level, literacy, decrease access to med. care, fci, rehab)? @ -[No] Was there de-escalation of care discussed even if they declined (Discuss DNR or withdrawal of care, Hospice)? DNR status @ -[No] What co-morbidities impacted this encounter? (DM, HTN, Smoking, COPD, CAD, Cancer, CVA, ARF, Chemo, Hep., AIDS, mental health diagnosis, sleep apnea, morbid obesity)? @ -[None] Was patient admitted / discharged? Hospital course, mention meds given and route, prescriptions, significant lab abnormalities, going to OR and other pertinent info. @ Patient was discharged -[hospital course] Undiagnosed new problem with uncertain prognosis? @ -[No] Drug Therapy requiring intensive monitoring for toxicity (Heparin, Nitro, Insulin, Cardizem)? @ -[No] Were any procedures done? @ -[No] Diagnosis/symptom? @ Sinusitis, bronchitis, smoker-[default] Acute, or Chronic, or Acute on Chronic? @ -[default] Uncomplicated (without systemic symptoms) or Complicated (systemic symptoms)? @ -[default] Side effects of treatment? @ -[No] Exacerbation, Progression, or Severe Exacerbation? @ -[No] Poses a threat to life or bodily function? How? (Chest pain, [place], [place], pneumonia, PE, COPD, DKA, ARF, appy, cholecystitis, CVA, Diverticulitis, Homicidal, Suicidal, threat to staff... and all critical care pts) @ -[No] - Lab Data Lab Results 05/16/22 Range/Units 11:21 Coronavirus (PCR) Not Detected (Not Detectd) - Radiology Data Interpreted by me: I did interpret the imaging no acute processes. Disposition Clinical Impression: Sinusitis, Bronchitis, Smoking Disposition: HOME SELF-CARE Condition: Good Instructions (If sedation given, give patient instructions): Sinusitis (ED), Acute Bronchitis (ED) Prescriptions: Amoxic-Pot Clav 875-125Mg [Augmentin 875-125] 1 tab PO Q12HR 1 Days #20 tab Is patient prescribed a controlled substance at d/c from ED?: No Referrals: Cherie Coyne MD [Primary Care Provider] - 1-2 days Decision Date: 05/16/22 Decision Time: 12:39
--- NOTE | 2022-05-16 11:49 | XR ---
EXAMINATION TYPE: XR chest 2V DATE OF EXAM: 05/16/2022 COMPARISON: 05/18/2021 INDICATION: Cough, chest pressure TECHNIQUE: Frontal and lateral views of the chest are obtained. FINDINGS: The heart size is normal. The pulmonary vasculature is normal. The lungs are clear. Scoliosis present with convexity to the left centered in the midthoracic spine. This can be positional and changed from comparison. IMPRESSION: 1. No acute pulmonary process. 2. Scoliosis mid thoracic spine
[2022-05-16 12:48] VITALS: BP 128/65; PULSE 97; RESP 18; TEMP 97.5
== END 2022-05-16 12:48 | disposition home or self-care (01) ==
LOC: EC 09:13
DX: J32.9 Chronic sinusitis, unspecified (principal); J40 Bronchitis, not specified as acute or chronic; J44.9 Chronic obstructive pulmonary disease, unspecified; E11.9 Type 2 diabetes mellitus without complications; Z86.718 Personal history of other venous thrombosis and embolism; M19.90 Unspecified osteoarthritis, unspecified site; F41.9 Anxiety disorder, unspecified; F31.9 Bipolar disorder, unspecified; F17.210 Nicotine dependence, cigarettes, uncomplicated; F12.90 Cannabis use, unspecified, uncomplicated; Z20.822 Contact with and (suspected) exposure to COVID-19
CPT/HCPCS: 71046; 87635; 99283

== ENCOUNTER → 2022-05-25 | Outpatient (CLI) | payer BC, MEDICARE, OTHER ==
--- NOTE | 2022-05-25 14:54 | NM ---
EXAMINATION TYPE: NM bone 3 phase DATE OF EXAM: 05/25/2022 COMPARISON: Correlation MRI of right ankle/foot 04/13/2022 HISTORY: 61-year-old male G90.521, Swelling to the right lower extremity, now bilateral. Reports call us being cut off from the left foot last week. TECHNIQUE: Triple phase bone scintigraphy was performed following the injection of 20 mCi Tc 99m MDP. Immediate images and 5.5 hours post injection images acquired. Imaging was performed of the bilater al distal lower extremities. FINDINGS: Flow images show asymmetric hyperemia medial left forefoot. There also appears to be some asymmetric hyperemia along the lateral right ankle/hindfoot. Pool images show corresponding increased tracer activity in these regions. Delayed scan shows increased tracer activity involving the right hindfoot. Small focus of increased a ctivity at the tip of the left great toe or second toe but similar finding on the contralateral side. IMPRESSION: 1. Three-phase positive bone scan findings involving the right hindfoot. Consider the possibility of reflex sympathetic dystrophy. 2. Three-phase positive bone scan findings involving the left great toe or left second toe. Query as to if the patient's reported callous was removed from this location. If this corresponds to the locat ion of callus removal, correlate to exclude infection at the surgical site.
== END | disposition home or self-care (01) ==
LOC: RADNMMAIN 07:02
PROVIDERS: ATTEND Internal Medicine Rheumatology
DX: G90.521 Complex regional pain syndrome I of right lower limb (principal)
CPT/HCPCS: 78315; A9503

== ENCOUNTER → 2022-06-04 | Outpatient (CLI) | payer BC, MEDICARE, OTHER ==
--- NOTE | 2022-06-04 10:56 | US ---
EXAMINATION TYPE: US venous doppler duplex LE RT DATE OF EXAM: 06/04/2022 10:41 AM COMPARISON: US 2021 CLINICAL HISTORY: R60.0 EDEMA. Edema. Hx of DVT in right leg. Patient does not take blood thinners. SIDE PERFORMED: Right TECHNIQUE: The lower extremity deep venous system is examined utilizing real time linear array sonog jalyn with graded compression, doppler sonography and color-flow sonography. VESSELS IMAGED: Common Femoral Vein Deep Femoral Vein Greater Saphenous Vein * Femoral Vein Popliteal Vein Small Saphenous Vein * Proximal Calf Veins (* superficial vessels) Right Leg: No evidence of DVT. IMPRESSION: No ultrasound evidence for deep venous thrombosis of the right lower extremity.
== END | disposition home or self-care (01) ==
LOC: RADUSWWP 09:40
PROVIDERS: ATTEND Podiatrist Foot & Ankle Surgery
DX: R60.0 Localized edema (principal); Z86.718 Personal history of other venous thrombosis and embolism

== ENCOUNTER 2023-02-12 07:20 | Day surgery (SDC) | payer BC, MEDICARE, OTHER ==
[2023-02-07 10:06] VITALS: BMI 17.8
[~2023-02-12 07:20] MED LIST changes: -ACETAMINOPHEN TAB 500 MG TAB PO PRN; -DEXAMETHASONE SOD PHOSPHATE 4 MG/ML 1 ML VIAL IV ONE; -HEPARIN SODIUM,PORCINE 5,000 UNIT/ML 1 ML VIAL SQ PRN; -LACTATED RINGERS 1,000 ML IV SCH; +LIDOCAINE 1% (10MG/ML) FOR IV START INTRADERMA PRN; -MIDAZOLAM 2 MG/2 ML VIAL IV PRN; -ONDANSETRON 4 MG/2 ML VIAL IVP ONE; -SCOPOLAMINE 1.5MG/72HR PATCH TRANSDERM ONE
[2023-02-12] MEDS: LACTATED RINGERS 1,000 ML IV SCH ×2 (08:27→08:50)
[2023-02-12 08:32] LABS: Glucose,Whole Blood 84 mg/dL (70-110)
[2023-02-12 08:42] VITALS: TEMP 97.1
[2023-02-12] MEDS ORDERED: PROPOFOL 10 MG/ML 20 ML VIAL IV ONE (08:52)
[2023-02-12] MEDS ORDERED: LIDOCAINE 1% INJ 10MG/ML (20 ML MDV) ONE (08:52)
--- NOTE | 2023-02-12 08:56 | P.GSHP ---
History of Present Illness H&P Date: 02/12/23 Chief Complaint: Colon cancer screening 62-year-old male here for colonoscopy. He has not had one in many years. No bowel complaints. No family history of colon cancer. Past Medical History Past Medical History: COPD, Diabetes Mellitus, Deep Vein Thrombosis (DVT), Hyperlipidemia, Mitral Valve Prolapse (MVP), Osteoarthritis (OA) Additional Past Medical History / Comment(s): heart murmur, DVT years ago, ch ronic back, foot & leg pain, states he's not diabetic, one said he was, one said he wasn't, took metformin in past History of Any Multi-Drug Resistant Organisms: None Reported Past Surgical History: Orthopedic Surgery Additional Past Surgical History / Comment(s): left leg vein surg., right wrist surg. colonoscopy Past Anesthesia/Blood Transfusion Reactions: No Reported Reaction Additional Past Anesthesia/Blood Transfusion Reaction / Comment(s): no blood transfusion Smoking Status: Current every day smoker - Past Family History Father Family Medical History: No Reported History Mother Family Medical History: Unable to Obtain Brother(s) Family Medical History: No Reported History Sister(s) Family Medical History: No Reported History Medications and Allergies Home Medications Medication Instructions Recorded Confirmed Type No Known Home Medications 02/07/23 02/07/23 History Allergies Allergy/AdvReac Type Severity Reaction Status Date / Time No Known Allergies Allergy Verified 02/12/23 08:25 Surgical - Exam Vital Signs Temp Pulse Resp Pulse Ox 97.1 F L 53 L 16 100 02/12/23 08:28 02/12/23 08:28 02/12/23 08:28 02/12/23 08:28 Physical exam: General: Well-developed, well-nourished HEENT: Normocephalic, sclerae nonicteric Abdomen: Nontender, nondistended Extremities: No edema Neuro: Alert and oriented Assessment and Plan (1) Colon cancer screening Narrative/Plan: Will proceed with colonoscopy Current Visit: Yes Status: Acute Code(s): Z12.11 - ENCOUNTER FOR SCREENING FOR MALIGNANT NEOPLASM OF COLON SNOMED Code(s): 841496123
--- NOTE | 2023-02-12 09:11 | P.PCN ---
Date of Procedure: 02/12/23 Procedure(s) Performed: PREOPERATIVE DIAGNOSIS: Colon cancer screening POSTOPERATIVE DIAGNOSIS: Diverticulosis PROCEDURE: Colonoscopy ANESTHESIA: MAC SURGEON: Derrick Pagan M.D. SPECIMENS: None ENDOSCOPIC PROCEDURE: The patient was placed on the endoscopy table in the left decubitus position. The Olympus colonoscope was inserted into the anus and passed under direct visualization to the base of the cecum. The appendiceal orifice was visualized. From that point the scope was slowly withdrawn inspe cting all surfaces carefully. There were no neoplastic inflammatory or polypoid lesions throughout the cecum, ascending, transverse, descending, sigmoid and rectum. There was mild left-sided diverticulosis noted. Digital rectal examination was normal. The patient was taken to the recovery room in stable condition per anesthesia guidelines. RECOMMENDATIONS: Resume diet. Repeat colonoscopy 10 years.
[2023-02-12 09:46] VITALS: BP 109/75; PULSE 74; RESP 18
== END 2023-02-12 09:52 | disposition home or self-care (01) ==
LOC: ORWHC2ENDO 07:20
PROVIDERS: ATTEND Surgery
DX: Z12.11 Encounter for screening for malignant neoplasm of colon (principal); K57.30 Diverticulosis of large intestine without perforation or abscess without bleeding; J44.9 Chronic obstructive pulmonary disease, unspecified; E11.9 Type 2 diabetes mellitus without complications; E78.5 Hyperlipidemia, unspecified; M19.90 Unspecified osteoarthritis, unspecified site; I34.1 Nonrheumatic mitral (valve) prolapse; F17.200 Nicotine dependence, unspecified, uncomplicated; Z86.718 Personal history of other venous thrombosis and embolism; Z79.899 Other long term (current) drug therapy
CPT/HCPCS: 45378; J2001; J2704

== ENCOUNTER → 2023-12-03 | Outpatient (CLI) | payer MEDICARE, OTHER ==
--- NOTE | 2023-12-03 11:26 | US ---
EXAMINATION TYPE: US venous doppler duplex LE DATE OF EXAM: 12/03/2023 11:04 AM COMPARISON: US 2022, 2021, 2016 CLINICAL INDICATION: Male, 63 years old with history of M79.605 Pain in left leg Z91.81 M79.604 pain in ri; Left leg pain and swelling SIDE PERFORMED: Bilateral TECHNIQUE: The lower extremity deep venous system is examined utilizing real time linear array sonog jalyn with graded compression, doppler sonography and color-flow sonography. VESSELS IMAGED: Common Femoral Vein Deep Femoral Vein Greater Saphenous Vein * Femoral Vein Popliteal Vein Small Saphenous Vein * Proximal Calf Veins (* superficial vessels) Right Leg: Appears negative for DVT Left Leg: Appears negative for DVT IMPRESSION: Grayscale, color doppler, spectral doppler imaging performed of the deep veins of the lo wer extremities. There is normal flow, compressibility, vascular waveforms.
--- NOTE | 2023-12-03 13:08 | XR ---
EXAMINATION TYPE: XR ankle complete bilateral DATE OF EXAM: 12/03/2023 COMPARISON: NONE HISTORY: Pain TECHNIQUE: 3 views of the bilateral ankles are submitted for evaluation. FINDINGS: There is no evidence for fracture or dislocation. Ankle mortise is intact. Soft tissues are within normal limits. IMPRESSION: 1. No evidence for acute fracture.
--- NOTE | 2023-12-04 16:59 | XR ---
EXAMINATION TYPE: XR foot complete bilateral DATE OF EXAM: 12/03/2023 12:03 PM CLINICAL INDICATION:Male, 63 years old with history of M79.605 Pain in left leg Z91.81 status post fa ll M79.604 RIG; [facility] COMPARISON: TECHNIQUE: XR foot complete bilateral examined in the AP, oblique, and lateral projections. FINDINGS: Questionable fracture of the medial sesamoid bone at the first MTP joint. No other fracture identifie d. No evidence of soft tissue swelling. Joints are preserved. IMPRESSION: Questionable fracture of the medial sesamoid bone at the first MTP joint. No other fracture identifie d.
--- NOTE | 2023-12-04 17:06 | XR ---
EXAMINATION TYPE: XR tibia fibula bilateral DATE OF EXAM: 12/03/2023 12:03 PM CLINICAL INDICATION:Male, 63 years old with history of M79.605 Pain in left leg Z91.81 status post fa ll M79.604 RIG; [facility]. Initial encounter. COMPARISON: TECHNIQUE: XR tibia fibula bilateral; tibia/fibula was examined in AP and lateral projections. FINDINGS: No evidence of any acute osseous pathology, joint dislocation, or soft tissue swelling is n oted. IMPRESSION: No evidence of acute fracture.
--- NOTE | 2023-12-04 17:10 | XR ---
EXAMINATION TYPE: XR knee limited bilateral DATE OF EXAM: 12/03/2023 12:03 PM CLINICAL INDICATION:Male, 63 years old with history of M79.605 Pain in left leg Z91.81 status post fa ll; [facility] COMPARISON: None. TECHNIQUE: XR knee limited bilateral; examined in Frontal, lateral and oblique projections. FINDINGS: Articular variation suggests cartilage calcification and cartilage damage, No evidence of any acute osseous pathology, soft tissue swelling, or joint effusion is noted. IMPRESSION: 1. Articular variation suggest cartilage calcification and cartilage damage 2. No significant arthritic change.
== END | disposition home or self-care (01) ==
LOC: RADUSWWP 10:35
PROVIDERS: ATTEND Family Medicine
DX: M79.605 Pain in left leg (principal); Z91.81 History of falling; M79.604 Pain in right leg
CPT/HCPCS: 93970